=== PATIENT | male | born 1955 | race American Indian/Alaskan Native ===

== ENCOUNTER 2021-07-12 20:15 | Inpatient (IN) | payer OTHER, SELFPAY ==
--- NOTE | 2021-07-12 20:27 | Event Note ---
Date: 07/12/21 The patient was evaluated in the emergency department for symptoms described in the history of present illness. He/she was evaluated in the context of the global COVID-19 pandemic, which necessitated consideration that the patient might be at risk for infection with the virus that causes COVID-19. Institutional protocols and algorithms that pertain to the evaluation of patients at risk for COVID-19 are in a state of rapid change based on information released by regulatory bodies including the CDC and federal and state organizations. These policies and algorithms were followed during the patient's care in the emergency department. Please note that these policies, procedures and recommendations changed on a rapid basis. EMS documentation not available at time of chart dictation Verbal report received from emergency medical services. Medical screening examination: 66-year-old gentleman brought to the hospital by EMS with a complaint of generalized weakness. Patient altered and asking for coffee. Last known well time is not explicitly known. History obtained from EMS. EMS states that patient is not compliant with traditional medical therapy, including regular medications, and has not received COVID-19 vaccination. They received a call for generalized weakness. They state the patient has a high Accu-Chek, and is breathing rapidly "probably kussmal breathing." They report the patient not ambulatory in the field, with rapid breathing, requiring a lift. They report high blood sugar. On exam, the patient is breathing rapidly, is awake to name, and moves 4 extremities. Denies physical pain. This is likely toxic metabolic encephalopathy, likely secondary to DKA. Obtain appropriate laboratory studies, noncontrast CT scan of the brain, x-ray the chest, Accu-Chek, EKG, anticipate admission to the medical service.
[2021-07-12 21:02] LABS: Mean Corpuscular HGB Conc 31 % (32-34); Mean Corpuscular Volume 96 fl (84-94); Platelet Count 234 K/mm3 (140-440); Red Cell Distribution Width 15.3 % (13.2-15.2)
--- NOTE | 2021-07-12 21:08 | Emergency Department Report ---
ED General Adult HPI - General Chief complaint: Altered Mental Status Stated complaint: DKA Time Seen by Provider: 07/12/21 21:07 Source: patient, EMS (Verbal report received from emergency medical services. EMS documentation not available at time of chart dictation ) Mode of arrival: Stretcher Limitations: Altered Mental Status, Physical Limitation - History of Present Illness Initial comments: The patient was evaluated in the emergency department for symptoms described in the history of present illness. He/she was evaluated in the context of the global COVID-19 pandemic, which necessitated consideration that the patient might be at risk for infection with the virus that causes COVID-19. Institutional protocols and algorithms that pertain to the evaluation of patients at risk for COVID-19 are in a state of rapid change based on information released by regulatory bodies including the CDC and federal and state organizations. These policies and algorithms were followed during the patient's care in the emergency department. Please note that these policies, procedures and recommendations changed on a rapid basis. This patient is a 66-year-old gentleman. He is not known to myself previously. He is brought to the hospital by emergency medical services with an EMS stated complaint of high blood sugar and generalized weakness. The patient is altered. He denies physical pain. He is asking for something to drink. He is not accompanied by friends or family for collateral information. History mostly obtained by EMS. EMS reported to myself that this patient does not take medications, including medications for diabetes, and they responded to a complaint of generalized weakness and high blood sugar. They reported that the patient had a high blood sugar in the field, and was basically laying down without signs of trauma or history of trauma at home. In the emergency room, the patient will move 4 extremities and denies physical pain. He is breathing rapidly. He also has dry mucous membranes. He is found to have evidence of dehydration, hyperglycemia, metabolic acidosis, all consistent with diabetic ketoacidosis, likely secondary to medication noncompliance. -: unknown - Related Data Allergies Allergy/AdvReac Type Severity Reaction Status Date / Time Unable to Assess Allergy Verified 07/12/21 22:40 ED Review of Systems ROS: Stated complaint: DKA Other details as noted in HPI Comment: Unobtainable due to pts medical conditions ED Physical Exam - General Limitations: Altered Mental Status General appearance: lethargic - Head Head exam: Present: atraumatic, normocephalic - Eye Eye exam: Present: normal appearance, EOMI - ENT ENT exam: Present: mucous membranes dry - Neck Neck exam: Present: normal inspection, full ROM. Absent: tenderness, meningismus - Respiratory Respiratory exam: Present: respiratory distress, accessory muscle use. Absent: wheezes, rales, rhonchi, stridor - Cardiovascular Cardiovascular Exam: Present: regular rate, normal rhythm, normal heart sounds. Absent: bradycardia, tachycardia, irregular rhythm, systolic murmur, diastolic murmur, rubs, gallop - GI/Abdominal GI/Abdominal exam: Present: soft. Absent: distended, tenderness, guarding, rebound, rigid, pulsatile mass - Rectal Rectal exam: Present: deferred - Extremities Exam Extremities exam: Present: normal inspection, other (2+ pulses noted in the bilateral upper and lower extremities. There is no palpable cord. negative Homans sign. Muscular compartments are soft. The pelvis is stable.). Absent: tenderness, pedal edema, calf tenderness - Back Exam Back exam: Present: normal inspection. Absent: tenderness, CVA tenderness (R), CVA tenderness (L), paraspinal tenderness, vertebral tenderness - Neurological Exam Neurological exam: Present: altered, other (There is no facial droop. The tongue is midline. EOMI. 4-5 strength in 4 extremities. Sensation is intact to light touch in 4 extremities) - Psychiatric Psychiatric exam: Present: flat affect - Skin Skin exam: Present: warm, dry, intact, normal color. Absent: rash ED Course - Reevaluation(s) Reevaluation #1: 07/12/21 21:31 Differential diagnosis, including but not limited to: Acute encephalopathy, diabetic ketoacidosis, dehydration, metabolic encephalopathy, pneumonia, urinary tract infection, noncompliance Assessment and plan: 66-year-old gentleman with venous pH of 7.1, hyperglycemia, CO2 of 7, metabolic acidosis, all pointing to diabetic ketoacidosis with metabolic encephalopathy, likely secondary to the aforementioned. Place patient on court monitor, start vigorous IV fluid resuscitation, insulin bolus, insulin drip, x-ray the chest is clear, obtain noncontrast CT scan of the brain, urinalysis, admit patient to the critical care unit. Contacted critical care physician on-call, Dr. Ferguson, have discussed the patient's history, physical, laboratory studies and plan of care. Dr. Ferguson is in agreement with the plan of care, and will follow along consultatively. Noncontrast CT scan of the brain is pending at this time, presuming no significant findings, admit patient to the critical care/medical service for the aforementioned. At the moment, the patient is protecting airway. 07/12/21 21:47 Dr Smith to admit to IMS/ ICU ct head shows no bleed 07/12/21 22:20 Patient found to be hypoxic, requiring nonrebreather. Decadron ordered, isolation precautions ordered, Covid laboratory studies ordered. Nursing team reports that blood pressure is in the 90s systolic. 4 L fluid ordered total. Noncontrast CT scan of the brain interpretation reviewed and appreciated. Defer to inpatient team to further evaluate. 07/12/21 23:00 Patient pulling off nonrebreather. He is altered and does not have decision-making capacity. Given hypoxia, toxic metabolic encephalopathy, chemical sedation not advised at this time. Soft restraints ordered. 07/13/21 00:13 Hypothermia likely environmental. TSH within normal limits. Blood pressure improved. Active patient rewarming ordered. ED Medical Decision Making - Lab Data Result diagrams: 07/12/21 20:38 07/12/21 23:14 Lab Results 07/12/21 07/12/21 07/12/21 Range/Units 20:38 20:38 20:38 WBC 11.1 H (4.5-11.0) K/mm3 RBC 4.90 (3.65-5.03) M/mm3 Hgb 14.3 (11.8-15.2) gm/dl Hct 46.8 H (35.5-45.6) % MCV 96 H (84-94) fl MCH 29 (28-32) pg MCHC 31 L (32-34) % RDW 15.3 H (13.2-15.2) % Plt Count 234 (140-440) K/mm3 Seg Neutrophils % Shoe Ironer PT 16.5 H (12.2-14.9) Sec. INR 1.28 H (0.87-1.13) VBG pH (7.320-7.420) Sodium 146 H (137-145) mmol/L Potassium 5.2 H (3.6-5.0) mmol/L Chloride 104.9 (98-107) mmol/L BUN 50 H (9-20) mg/dL Creatinine 1.5 H (0.8-1.3) mg/dL Estimated GFR 47 ml/min BUN/Creatinine Ratio 33 % Lactic Acid (0.7-2.0) mmol/L Calcium 9.4 (8.4-10.2) mg/dL Magnesium 3.20 H (1.7-2.3) mg/dL Total Bilirubin 0.30 (0.1-1.2) mg/dL AST 22 (5-40) units/L ALT 13 (7-56) units/L Alkaline Phosphatase 109 (35-129) units/L Total Creatine Kinase 372 H (55-170) units/L Troponin T < 0.010 (0.00-0.029) ng/mL Total Protein 7.0 (6.3-8.2) g/dL Albumin 3.2 L (3.9-5) g/dL Albumin/Globulin Ratio 0.8 % Acetaminophen (10.0-30.0) ug/mL 07/12/21 07/12/21 07/12/21 Range/Units 20:38 20:38 20:38 WBC (4.5-11.0) K/mm3 RBC (3.65-5.03) M/mm3 Hgb (11.8-15.2) gm/dl Hct (35.5-45.6) % MCV (84-94) fl MCH (28-32) pg MCHC (32-34) % RDW (13.2-15.2) % Plt Count (140-440) K/mm3 Seg Neutrophils % PT (12.2-14.9) Sec. INR (0.87-1.13) VBG pH 7.170 L* (7.320-7.420) Sodium (137-145) mmol/L Potassium (3.6-5.0) mmol/L Chloride (98-107) mmol/L BUN (9-20) mg/dL Creatinine (0.8-1.3) mg/dL Estimated GFR ml/min BUN/Creatinine Ratio % Lactic Acid 1.90 (0.7-2.0) mmol/L Calcium (8.4-10.2) mg/dL Magnesium (1.7-2.3) mg/dL Total Bilirubin (0.1-1.2) mg/dL AST (5-40) units/L ALT (7-56) units/L Alkaline Phosphatase (35-129) units/L Total Creatine Kinase (55-170) units/L Troponin T (0.00-0.029) ng/mL Total Protein (6.3-8.2) g/dL Albumin (3.9-5) g/dL Albumin/Globulin Ratio % Acetaminophen 5.0 L (10.0-30.0) ug/mL Lab Results 07/12/21 07/12/21 07/12/21 Range/Units 20:38 20:38 20:38 WBC 11.1 H (4.5-11.0) K/mm3 RBC 4.90 (3.65-5.03) M/mm3 Hgb 14.3 (11.8-15.2) gm/dl Hct 46.8 H (35.5-45.6) % MCV 96 H (84-94) fl MCH 29 (28-32) pg MCHC 31 L (32-34) % RDW 15.3 H (13.2-15.2) % Plt Count 234 (140-440) K/mm3 Seg Neutrophils % Shoe Ironer PT 16.5 H (12.2-14.9) Sec. INR 1.28 H (0.87-1.13) VBG pH (7.320-7.420) Sodium 146 H (137-145) mmol/L Potassium 5.2 H (3.6-5.0) mmol/L Chloride 104.9 (98-107) mmol/L Carbon Dioxide 7 L* (22-30) mmol/L Anion Gap 39 mmol/L BUN 50 H (9-20) mg/dL Creatinine 1.5 H (0.8-1.3) mg/dL Estimated GFR 47 ml/min BUN/Creatinine Ratio 33 % Glucose 617 H* (75-100) mg/dL Lactic Acid (0.7-2.0) mmol/L Calcium 9.4 (8.4-10.2) mg/dL Magnesium 3.20 H (1.7-2.3) mg/dL Total Bilirubin 0.30 (0.1-1.2) mg/dL AST 22 (5-40) units/L ALT 13 (7-56) units/L Alkaline Phosphatase 109 (35-129) units/L Total Creatine Kinase 372 H (55-170) units/L Troponin T < 0.010 (0.00-0.029) ng/mL Total Protein 7.0 (6.3-8.2) g/dL Albumin 3.2 L (3.9-5) g/dL Albumin/Globulin Ratio 0.8 % TSH (0.270-4.200) mlU/mL Salicylates (2.8-20.0) mg/dL Acetaminophen (10.0-30.0) ug/mL Plasma/Serum Alcohol (0-0.07) % Blood Type 07/12/21 07/12/21 07/12/21 Range/Units 20:38 20:38 20:38 WBC (4.5-11.0) K/mm3 RBC (3.65-5.03) M/mm3 Hgb (11.8-15.2) gm/dl Hct (35.5-45.6) % MCV (84-94) fl MCH (28-32) pg MCHC (32-34) % RDW (13.2-15.2) % Plt Count (140-440) K/mm3 Seg Neutrophils % PT (12.2-14.9) Sec. INR (0.87-1.13) VBG pH (7.320-7.420) Sodium (137-145) mmol/L Potassium (3.6-5.0) mmol/L Chloride (98-107) mmol/L Carbon Dioxide (22-30) mmol/L Anion Gap mmol/L BUN (9-20) mg/dL Creatinine (0.8-1.3) mg/dL Estimated GFR ml/min BUN/Creatinine Ratio % Glucose (75-100) mg/dL Lactic Acid 1.90 (0.7-2.0) mmol/L Calcium (8.4-10.2) mg/dL Magnesium (1.7-2.3) mg/dL Total Bilirubin (0.1-1.2) mg/dL AST (5-40) units/L ALT (7-56) units/L Alkaline Phosphatase (35-129) units/L Total Creatine Kinase (55-170) units/L Troponin T (0.00-0.029) ng/mL Total Protein (6.3-8.2) g/dL Albumin (3.9-5) g/dL Albumin/Globulin Ratio % TSH 0.819 (0.270-4.200) mlU/mL Salicylates < 0.3 L (2.8-20.0) mg/dL Acetaminophen (10.0-30.0) ug/mL Plasma/Serum Alcohol (0-0.07) % Blood Type 07/12/21 07/12/21 07/12/21 Range/Units 20:38 20:38 20:38 WBC (4.5-11.0) K/mm3 RBC (3.65-5.03) M/mm3 Hgb (11.8-15.2) gm/dl Hct (35.5-45.6) % MCV (84-94) fl MCH (28-32) pg MCHC (32-34) % RDW (13.2-15.2) % Plt Count (140-440) K/mm3 Seg Neutrophils % PT (12.2-14.9) Sec. INR (0.87-1.13) VBG pH 7.170 L* (7.320-7.420) Sodium (137-145) mmol/L Potassium (3.6-5.0) mmol/L Chloride (98-107) mmol/L Carbon Dioxide (22-30) mmol/L Anion Gap mmol/L BUN (9-20) mg/dL Creatinine (0.8-1.3) mg/dL Estimated GFR ml/min BUN/Creatinine Ratio % Glucose (75-100) mg/dL Lactic Acid (0.7-2.0) mmol/L Calcium (8.4-10.2) mg/dL Magnesium (1.7-2.3) mg/dL Total Bilirubin (0.1-1.2) mg/dL AST (5-40) units/L ALT (7-56) units/L Alkaline Phosphatase (35-129) units/L Total Creatine Kinase (55-170) units/L Troponin T (0.00-0.029) ng/mL Total Protein (6.3-8.2) g/dL Albumin (3.9-5) g/dL Albumin/Globulin Ratio % TSH (0.270-4.200) mlU/mL Salicylates (2.8-20.0) mg/dL Acetaminophen 5.0 L (10.0-30.0) ug/mL Plasma/Serum Alcohol < 0.01 (0-0.07) % Blood Type 07/12/21 Range/Units 20:38 WBC (4.5-11.0) K/mm3 RBC (3.65-5.03) M/mm3 Hgb (11.8-15.2) gm/dl Hct (35.5-45.6) % MCV (84-94) fl MCH (28-32) pg MCHC (32-34) % RDW (13.2-15.2) % Plt Count (140-440) K/mm3 Seg Neutrophils % PT (12.2-14.9) Sec. INR (0.87-1.13) VBG pH (7.320-7.420) Sodium (137-145) mmol/L Potassium (3.6-5.0) mmol/L Chloride (98-107) mmol/L Carbon Dioxide (22-30) mmol/L Anion Gap mmol/L BUN (9-20) mg/dL Creatinine (0.8-1.3) mg/dL Estimated GFR ml/min BUN/Creatinine Ratio % Glucose (75-100) mg/dL Lactic Acid (0.7-2.0) mmol/L Calcium (8.4-10.2) mg/dL Magnesium (1.7-2.3) mg/dL Total Bilirubin (0.1-1.2) mg/dL AST (5-40) units/L ALT (7-56) units/L Alkaline Phosphatase (35-129) units/L Total Creatine Kinase (55-170) units/L Troponin T (0.00-0.029) ng/mL Total Protein (6.3-8.2) g/dL Albumin (3.9-5) g/dL Albumin/Globulin Ratio % TSH (0.270-4.200) mlU/mL Salicylates (2.8-20.0) mg/dL Acetaminophen (10.0-30.0) ug/mL Plasma/Serum Alcohol (0-0.07) % Blood Type A POSITIVE - EKG Data -: EKG Interpreted by Fl EKG shows normal: sinus rhythm Rate: normal - EKG Data When compared to previous EKG there are: previous EKG unavailable 07/12/21 21:26 EKG interpreted at 20: 59 Sinus rhythm, 90 bpm. Normal P wave axis. Left axis deviation. Left anterior fascicular block. QTC prolonged, 477 ms. Left ventricular hypertrophy. Abnormal EKG. Not a STEMI. - Radiology Data Radiology results: pending, report reviewed, image reviewed [address] [address] XRay Report Signed Patient: GAGE COHEN MR#: [id number] : 1955 Acct:[id number] Age/Sex: 66 / M ADM Date: 07/12/21 Loc: ED Attending Dr: Ordering Physician: BABATUNDE PEREZ MD Date of Service: 07/12/21 Procedure(s): XR chest 1V ap Accession Number(s): [id number] cc: BABATUNDE PEREZ MD Fluoro Time In Minutes: CHEST 1 VIEW 07/12/2021 8:40 PM INDICATION / CLINICAL INFORMATION: Altered Mental Status. COMPARISON: None available. FINDINGS: SUPPORT DEVICES: None. HEART / MEDIASTINUM: No significant abnormality. LUNGS / PLEURA: No significant pulmonary or pleural abnormality. No pneumothorax. ADDITIONAL FINDINGS: No significant additional findings. IMPRESSION: 1. No acute findings. Signer Name: Thuan Ruano MD Signed: 07/12/2021 9:14 PM Workstation Name: [id number] Transcribed By: DB Dictated By: THUAN RUANO MD Electronically Authenticated By: THUAN RUANO MD Signed Date/Time: 07/12/212113 DD/ [address] [address] Cat Scan Report Signed Patient: GAGE COHEN MR#: [id number] : 1955 Acct:[id number] Age/Sex: 66 / M ADM Date: 07/12/21 Loc: ED Attending Dr: Ordering Physician: BABATUNDE PEREZ MD Date of Service: 07/12/21 Procedure(s): CT head/brain wo con Accession Number(s): [id number] cc: BABATUNDE PEREZ MD CT HEAD WITHOUT CONTRAST INDICATION / CLINICAL INFORMATION: Altered Mental Status. TECHNIQUE: All CT scans at this location are performed using CT dose reduction for ALARA by means of automated exposure control. COMPARISON: None available. FINDINGS: There is no acute intracranial hemorrhage, mass effect, or hydrocephalus. There is a focal hypodense area in the right occipital lobe above the tentorium (series 400 image 53) and in the high left frontal lobe as seen on series 2 image 24. The paranasal sinuses and mastoid air cells are clear. The orbits are unremarkable. Calvarium is intact. IMPRESSION: 1. No acute intracranial abnormality. 2. Focal hypodense areas in the left frontal lobe and right occipital lobe are nonspecific. Recommend further evaluation with MRI. Signer Name: Thuan Ruano MD Signed: 07/12/2021 10:10 PM Workstation Name: [id number] Transcribed By: DB Dictated By: THUAN RUANO MD Electronically Authenticated By: THUAN RUANO MD Signed Date/Time: 07/12/21 2210 Critical Care Time: Yes Critical care time in (mins) excluding proc time.: 35 Critical care attestation.: If time is entered above; I have spent that time in minutes in the direct care of this critically ill patient, excluding procedure time. ED Disposition Clinical Impression: DKA (diabetic ketoacidosis), Dehydration, Acute encephalopathy, Renal insufficiency, Hypothermia Disposition: ADMITTED INPATIENT Is pt being admited?: Yes Does the pt Need Aspirin: No Condition: Critical
[2021-07-12 21:09] LABS: Hematocrit 46.8 % (35.5-45.6); Hemoglobin 14.3 gm/dl (11.8-15.2)
[2021-07-12 21:15] LABS: INR 1.28 (0.87-1.13)
--- NOTE | 2021-07-12 21:19 | XRay Report ---
CHEST 1 VIEW 07/12/2021 8:40 PM INDICATION / CLINICAL INFORMATION: Altered Mental Status. COMPARISON: None available. FINDINGS: SUPPORT DEVICES: None. HEART / MEDIASTINUM: No significant abnormality. LUNGS / PLEURA: No significant pulmonary or pleural abnormality. No pneumothorax. ADDITIONAL FINDINGS: No significant additional findings. IMPRESSION: 1. No acute findings. Signer Name: Socrates Ruano MD Signed: 07/12/2021 9:14 PM Workstation Name: [id number]
[2021-07-12 21:20] LABS: Alanine Aminotransferase 13 units/L (7-56); Albumin 3.2 g/dL (3.9-5); BUN/Creatinine Ratio 33; Blood Urea Nitrogen 50 mg/dL (9-20); Calcium 9.4 mg/dL (8.4-10.2); Hemolysis Index 8
[2021-07-12] MEDS ORDERED: DEXTROSE 50% IN WATER (25GM) 50 ML SYRINGE IV PRN ×2 (21:25→22:08)
[2021-07-12] MEDS ORDERED: INSULIN REGULAR, HUMAN 100 UNITS in SODIUM CHLORIDE 0.9% 99 ML IV SCH (22:00)
[2021-07-12] MEDS ORDERED: ACETAMINOPHEN 325 MG TAB PO PRN (22:08)
[2021-07-12] MEDS ORDERED: HYDROmorphone 1 MG/1 ML INJ IV PRN (22:08)
[2021-07-12] MEDS ORDERED: oxyCODONE /ACETAMINOPHEN 5-325MG TAB PO PRN (22:08)
[2021-07-12] MEDS ORDERED: ALBUTEROL 2.5 MG/3 ML NEBU IH PRN (22:08)
[2021-07-12] MEDS ORDERED: ONDANSETRON 4 MG/2 ML INJ IV PRN (22:08)
--- NOTE | 2021-07-12 22:14 | Cat Scan Report ---
CT HEAD WITHOUT CONTRAST INDICATION / CLINICAL INFORMATION: Altered Mental Status. TECHNIQUE: All CT scans at this location are performed using CT dose reduction for ALARA by means of automated exposure control. COMPARISON: None available. FINDINGS: There is no acute intracranial hemorrhage, mass effect, or hydrocephalus. There is a focal hypodense area in the right occipital lobe above the tentorium (series 400 image 53) and in the high left frontal lobe as seen on series 2 image 24. The paranasal sinuses and mastoid air cells are clear. The orbits are unremarkable. Calvarium is inta ct. IMPRESSION: 1. No acute intracranial abnormality. 2. Focal hypodense areas in the left frontal lobe and right occipital lobe are nonspecific. Recommend further evaluation with MRI. Signer Name: Socrates Ruano MD Signed: 07/12/2021 10:10 PM Workstation Name: [id number]
[2021-07-12 22:16] LABS: Calcium 8.8 mg/dL (8.4-10.2)
[2021-07-12] MEDS ORDERED: LACTATED RINGERS 1,000 ML IV ONE ×2 (22:18→22:20)
--- NOTE | 2021-07-12 22:35 | History and Physical Report ---
History of Present Illness Date of examination: 07/12/21 Date of admission: 07/12/21 22:08 Chief complaint: Altered mental status Hyperglycemia History of present illness: 66-year-old with past medical history of diabetes was brought to the emergency room because of high blood sugar and generalized weakness. The patient is altered. He is asking for something to drink. He is not accompanied by friends or family for collateral information. History mostly obtained by EMS. EMS reported to myself that this patient does not take medications, including medications for diabetes, and they responded to a complaint of generalized weakness and high blood sugar. They reported that the patient had a high blood sugar in the field, and was basically laying down without signs of trauma or history of trauma at home. In the emergency room patient is found to have DKA. Patient blood glucose is 617 and bicarb is 7. Initial CT scan of the head shows no acute intracranial abnormality.2. Focal hypodense areas in the left frontal lobe and right occipital lobe are nonspecific recommend further evaluation with MRI. patient also PUI as per the emergency room physician. Past History Past Medical History: diabetes Medications and Allergies Allergies Allergy/AdvReac Type Severity Reaction Status Date / Time Unable to Assess Allergy Verified 07/12/21 22:40 Active Meds: Active Medications Acetaminophen (Acetaminophen 325 Mg Tab) 650 mg PO Q4H PRN PRN Reason: Pain MILD(1-3)/Fever >100.5/YOUNGBLOOD Albuterol (Albuterol 2.5 Mg/3 Ml Nebu) 2.5 mg IH Q4HRT PRN PRN Reason: Shortness Of Breath Albuterol/Ipratropium (Ipratropium/Albuterol Sulfate 3 Ml Ampul.Neb) 1 ampul IH Q6HRT JESUS Dexamethasone (Dexamethasone 4 Mg/Ml Vial) 6 mg IV ONCE ONE Stop: 07/12/21 22:19 Dexamethasone (Dexamethasone 4 Mg/Ml Vial) 6 mg IV DAILY JESUS Dextrose (Dextrose 50% In Water (25gm) 50 Ml Syringe) 0 ml IV Q30MIN PRN; Protocol PRN Reason: Hypoglycemia Dextrose (Dextrose 50% In Water (25gm) 50 Ml Syringe) 0 ml IV Q30MIN PRN; Protocol PRN Reason: Hypoglycemia Famotidine (Famotidine 20 Mg/2 Ml Inj) 20 mg IV BID JESUS Heparin Sodium (Porcine) (Heparin 5,000 Unit/1 Ml Vial) 5,000 unit SUB-Q Q8HR JESUS Hydromorphone HCl (Hydromorphone 1 Mg/1 Ml Inj) 0.5 mg IV Q3H PRN PRN Reason: Pain , Severe (7-10) Insulin Human Regular 100 (units/ Sodium Chloride) 100 mls @ 1 mls/hr IV TITR JESUS; Protocol Potassium Chloride/Dextrose/Sod Cl (D5w/0.45% Nacl/Kcl 20 Meq) 20 meq in 1,000 mls @ 125 mls/hr IV DIRECT JESUS Lactated Ringer's (Lactated Ringers) 2,000 mls @ 999 mls/hr IV BOLUS ONE Stop: 07/12/21 23:25 Insulin Human Regular 100 (units/ Sodium Chloride) 100 mls @ 1 mls/hr IV TITR JESUS; Protocol Sodium Chloride (Nacl 0.45% 1000 Ml) 1,000 mls @ 150 mls/hr IV DIRECT JESUS Lactated Ringer's (Lactated Ringers) 1,000 mls @ 999 mls/hr IV BOLUS ONE Stop: 07/12/21 23:18 Lactated Ringer's (Lactated Ringers) 1,000 mls @ 999 mls/hr IV BOLUS ONE Stop: 07/12/21 23:20 Ceftriaxone Sodium (Rocephin/Ns 2 Gm/100 Ml) 2 gm in 100 mls @ 200 mls/hr IV Q24H JESUS; Protocol Azithromycin (Zithromax/Ns) 500 mg in 250 mls @ 250 mls/hr IV Q24H JESUS; Protocol Insulin Human Regular (Insulin Regular, Human 100 Units/1 Ml) 8 units IV ONCE ONE Stop: 07/12/21 21:26 Ondansetron HCl (Ondansetron 4 Mg/2 Ml Inj) 4 mg IV Q8H PRN PRN Reason: Nausea And Vomiting Oxycodone/Acetaminophen (Oxycodone /Acetaminophen 5-325mg Tab) 1 tab PO Q6H PRN PRN Reason: Pain, Moderate (4-6) Sodium Chloride (Sodium Chloride 0.9% 10 Ml Flush Syringe) 10 ml IV BID JESUS Sodium Chloride (Sodium Chloride 0.9% 10 Ml Flush Syringe) 10 ml IV PRN PRN PRN Reason: LINE FLUSH Review of Systems All systems: negative Constitutional: fatigue, weakness, lethargy, poor appetite Neurological: change in mentation Exam - Constitutional General appearance: Present: mild distress, well-nourished - EENT Eyes: Present: PERRL ENT: hearing intact, clear oral mucosa - Neck Neck: Present: supple, normal ROM - Respiratory Respiratory effort: normal Respiratory: bilateral: diminished - Cardiovascular Heart Sounds: Present: S1 & S2. Absent: rub, click - Extremities Extremities: pulses symmetrical, No edema Peripheral Pulses: within normal limits - Abdominal General gastrointestinal: Present: soft, non-tender, non-distended, normal bowel sounds Male genitourinary: Present: normal - Integumentary Integumentary: Present: clear, warm, dry - Musculoskeletal Musculoskeletal: gait normal, strength equal bilaterally - Psychiatric Psychiatric: other (Patient is lethargic) - Neurologic Neurologic: CNII-XII intact, moves all extremities, other (Patient is lethargic) HEART Score - HEART Score Troponin: Troponin T < 0.010 ng/mL (0.00-0.029) 07/12/21 20:38 Results - Labs CBC & Chem 7: 07/12/21 20:38 07/12/21 21:31 Labs: Laboratory Last Values WBC 11.1 K/mm3 (4.5-11.0) H 07/12/21 20:38 RBC 4.90 M/mm3 (3.65-5.03) 07/12/21 20:38 Hgb 14.3 gm/dl (11.8-15.2) 07/12/21 20:38 Hct 46.8 % (35.5-45.6) H 07/12/21 20:38 MCV 96 fl (84-94) H 07/12/21 20:38 MCH 29 pg (28-32) 07/12/21 20:38 MCHC 31 % (32-34) L 07/12/21 20:38 RDW 15.3 % (13.2-15.2) H 07/12/21 20:38 Plt Count 234 K/mm3 (140-440) 07/12/21 20:38 Seg Neutrophils % Timber Setter 07/12/21 20:38 PT 16.5 Sec. (12.2-14.9) H 07/12/21 20:38 INR 1.28 (0.87-1.13) H 07/12/21 20:38 VBG pH 7.170 (7.320-7.420) L* 07/12/21 20:38 Sodium 148 mmol/L (137-145) H 07/12/21 21:31 Potassium 5.1 mmol/L (3.6-5.0) H 07/12/21 21:31 Chloride 105.2 mmol/L (98-107) 07/12/21 21:31 Carbon Dioxide 6 mmol/L (22-30) L* 07/12/21 21:31 Anion Gap 42 mmol/L 07/12/21 21:31 BUN 53 mg/dL (9-20) H 07/12/21 21:31 Creatinine 1.6 mg/dL (0.8-1.3) H 07/12/21 21:31 Estimated GFR 53 ml/min 07/12/21 21:31 BUN/Creatinine Ratio 33 % 07/12/21 21:31 Glucose 610 mg/dL (75-100) H* 07/12/21 21:31 Ketones Quantitative Moderate (Negative) 07/12/21 20:38 Lactic Acid 1.90 mmol/L (0.7-2.0) 07/12/21 20:38 Calcium 8.8 mg/dL (8.4-10.2) 07/12/21 21:31 Phosphorus 5.70 mg/dL (2.5-4.5) H 07/12/21 21:31 Magnesium 3.10 mg/dL (1.7-2.3) H 07/12/21 21:31 Total Bilirubin 0.30 mg/dL (0.1-1.2) 07/12/21 20:38 AST 22 units/L (5-40) 07/12/21 20:38 ALT 13 units/L (7-56) 07/12/21 20:38 Alkaline Phosphatase 109 units/L (35-129) 07/12/21 20:38 Ammonia 45.0 umol/L (25-60) 07/12/21 20:38 Total Creatine Kinase 372 units/L (55-170) H 07/12/21 20:38 Troponin T < 0.010 ng/mL (0.00-0.029) 07/12/21 20:38 Total Protein 7.0 g/dL (6.3-8.2) 07/12/21 20:38 Albumin 3.2 g/dL (3.9-5) L 07/12/21 20:38 Albumin/Globulin Ratio 0.8 % 07/12/21 20:38 TSH 0.819 mlU/mL (0.270-4.200) 07/12/21 20:38 Salicylates < 0.3 mg/dL (2.8-20.0) L 07/12/21 20:38 Acetaminophen 5.0 ug/mL (10.0-30.0) L 07/12/21 20:38 Plasma/Serum Alcohol < 0.01 % (0-0.07) 07/12/21 20:38 Blood Type A POSITIVE 07/12/21 20:38 Antibody Screen Negative 07/12/21 20:38 - Imaging and Cardiology Chest x-ray: report reviewed CT Scan - head: report reviewed Assessment and Plan VTE prophylaxis?: Chemical Plan of care discussed with patient/family: Yes - Patient Problems (1) DKA (diabetic ketoacidosis) Current Visit: Yes Status: Acute Plan to address problem: Admit the patient to the ICU put the patient on DKA pathway. N.p.o. IV fluid half-normal saline at the rate of 150 cc/h. Insulin drip as per protocol. We do the serial BMP. We also consult critical care evaluation and diabetic education recheck CBC BMP in the morning (2) Acute encephalopathy Current Visit: Yes Status: Acute Plan to address problem: Acute encephalopathy due to diabetic ketoacidosis and dehydration and renal insufficiency. Patient also has abnormal CT scan of the head. We will put the patient on IV fluid half-normal saline at the rate of 150 cc/h .insulin drip as per protocol. We will monitor the patient closely. Consult neurology. (3) Person under investigation for COVID-19 Current Visit: Yes Status: Acute Plan to address problem: Put the patient on oxygen by nasal cannula 3 L/min.. Rocephin 2 g IV daily and Zithromax 500 mg IV daily. Dexamethasone 6 mg IV daily. Will consult infectiou s disease evaluation. Follow the Covid PCR and Covid inflammatory marker (4) Dehydration Current Visit: Yes Status: Acute Plan to address problem: Half-normal saline at the rate of 150 cc/h. We will monitor the patient closely. We recheck the BMP in the morning (5) Renal insufficiency Current Visit: Yes Status: Acute Plan to address problem: Avoid nephrotoxic drug. Half-normal saline at the rate of 150 cc/h. Renally dose medication. Will consult nephrology in the morning if needed. . Recheck BMP in the morning (6) Abnormal CT scan, head Current Visit: Yes Status: Acute Plan to address problem: We order MRI of the brain without contrast. Consult neurology . (7) DVT prophylaxis Current Visit: Yes Status: Acute Plan to address problem: SCD for DVT prophylaxis. Pepcid 20 mg IV every 12 hours for GI prophylaxis. Patient is a full code
[2021-07-12 22:48] LABS: RBC Morphology Normal; Total Cells Counted 100
[2021-07-12] MEDS ORDERED: cefTRIAXone/NS 2 GM/100 ML 2 GM/100 ML BAG IV SCH (23:00)
[2021-07-12] MEDS ORDERED: SODIUM CHLORIDE 0.45% 1000 ML 1,000 ML IV SCH (23:00)
[2021-07-12] MEDS ORDERED: LACTATED RINGERS 1,000 ML IV SCH (23:00)
[2021-07-12] MEDS ORDERED: dexAMETHasone 4 MG/ML VIAL IV ONE (23:18)
[2021-07-12] MEDS ORDERED: INSULIN REGULAR, HUMAN 100 UNITS/1 ML IV ONE (23:25)
[2021-07-12] MEDS: INSULIN REGULAR, HUMAN 100 UNITS in SODIUM CHLORIDE 0.9% 99 ML IV SCH (23:44)
[2021-07-12 23:45] LABS: Calcium 8.7 mg/dL (8.4-10.2)
[2021-07-13] MEDS: cefTRIAXone/NS 2 GM/100 ML 2 GM/100 ML BAG IV SCH ×2 (00:02→13:08)
[2021-07-13] MEDS: AZITHROMYCIN/NS 500 MG/250 ML 500 MG/250 ML BAG IV SCH ×2 (01:10→16:09)
[2021-07-13 01:50] LABS: Bilirubin,Urine NEG (Negative); Blood,Urine MOD (Negative); Color,Urine Straw (Yellow); Hyaline Casts,Urine 1 /LPF; Mucus,Urine FEW /HPF; Urobilinogen,Urine < 2.0 mg/dL (<2.0); WBC,Urine < 1.0 /HPF (0.0-6.0)
[2021-07-13 01:58] LABS: Amphetamine Screen,Urine PRESUMPTIVE NEGATIVE; Benzodiazepines Screen,Urine PRESUMPTIVE NEGATIVE; Cannabinoid Screen,Urine PRESUMPTIVE NEGATIVE; Cocaine Screen,Urine PRESUMPTIVE NEGATIVE; Opiate Screen,Urine PRESUMPTIVE NEGATIVE
[2021-07-13 02:10] LABS: BUN/Creatinine Ratio 16; Blood Urea Nitrogen 13 mg/dL (9-20); Calcium 8.9 mg/dL (8.4-10.2); Hemolysis Index 7
[2021-07-13 02:16] LABS: Methadone Screen,Urine PRESUMPTIVE NEGATIVE
[2021-07-13 02:16] LABS: C-Reactive Protein 8.3 mg/dL (0.00-1.30)
[2021-07-13 02:16] LABS: C-Reactive Protein 8.1 mg/dL (0.00-1.30)
[2021-07-13] MEDS: D5W/0.45% NACL/KCL 20 MEQ 20 MEQ/1,000 ML BAG IV SCH ×2 (05:31→17:13)
[2021-07-13 05:48] LABS: Hematocrit 41.4 % (35.5-45.6); Hemoglobin 13.4 gm/dl (11.8-15.2); Mean Corpuscular HGB Conc 33 % (32-34); Mean Corpuscular Volume 90 fl (84-94); Platelet Count 196 K/mm3 (140-440); Red Blood Count 4.61 M/mm3 (3.65-5.03)
[2021-07-13] MEDS ORDERED: HEPARIN 5,000 UNIT/1 ML VIAL SUB-Q SCH (06:00)
[2021-07-13 06:04] LABS: BUN/Creatinine Ratio 38; Blood Urea Nitrogen 45 mg/dL (9-20); Hemolysis Index 2
[2021-07-13] MEDS ORDERED: LACTATED RINGERS 1,000 ML IV ONE (08:15)
[2021-07-13] MEDS ORDERED: cefTRIAXone/NS 2 GM/100 ML 2 GM/100 ML BAG IV SCH (10:00)
[2021-07-13 10:02] LABS: BUN/Creatinine Ratio 37; Blood Urea Nitrogen 41 mg/dL (9-20); Calcium 8.9 mg/dL (8.4-10.2); Hemolysis Index 1
--- NOTE | 2021-07-13 10:04 | Event Note ---
Date: 07/13/21 Consult placed for DKA, most likely persistent elevated anion gap is incorrect on last BMP. Ordered a stat repeat. If corrected then please down grade to medical floor, may even need to consider discharge to home given capacity of hospital and number of holds in the ED.
--- NOTE | 2021-07-13 10:21 | Electrocardiograph Report ---
[facility] Test Date: 2021-07-12 Test Time: 20:59:55 Pat Name: GAGE COHEN Department: Room: [place] [address] Gender: M [employer]: : 1955 Requested By: BABATUNDE PEREZ Order Number: [id number] Reading MD: José Miguel Mariscal Measurements Intervals [place] Rate: 90 P: 60 CT: 135 QRS: -8 QRSD: 97 T: 49 QT: 390 QTc: 477 Interpretive Statements Sinus rhythm No previous ECG available for comparison Electronically Signed On 07-13-2021 10:20:59 EDT by José Miguel Mariscal
--- NOTE | 2021-07-13 12:20 | Progress Note ---
Assessment and Plan (1) DKA (diabetic ketoacidosis) Current Visit: Yes Status: Acute Plan to address problem: Admit the patient to the ICU put the patient on DKA pathway. N.p.o. IV fluid half-normal saline at the rate of 150 cc/h. Insulin drip as per protocol. We do the serial BMP. We also consult critical care evaluation and diabetic education recheck CBC BMP in the morning (2) Acute encephalopathy Current Visit: Yes Status: Acute Plan to address problem: Acute encephalopathy due to diabetic ketoacidosis and dehydration and renal insufficiency. Patient also has abnormal CT scan of the head. We will put the patient on IV fluid half-normal saline at the rate of 150 cc/h .insulin drip as per protocol. We will monitor the patient closely. Consult neurology. (3) Person under investigation for COVID-19 Current Visit: Yes Status: Acute Plan to address problem: Put the patient on oxygen by nasal cannula 3 L/min.. Rocephin 2 g IV daily and Zithromax 500 mg IV daily. Dexamethasone 6 mg IV daily. Will consult infectious disease evaluation. Follow the Covid PCR and Covid inflammatory marker (4) Dehydration Current Visit: Yes Status: Acute Plan to address problem: Half-normal saline at the rate of 150 cc/h. We will monitor the patient closely. We recheck the BMP in the morning (5) Renal insufficiency Current Visit: Yes Status: Acute Plan to address problem: Avoid nephrotoxic drug. Half-normal saline at the rate of 150 cc/h. Renally dose medication. Will consult nephrology in the morning if needed. . Recheck BMP in the morning (6) Abnormal CT scan, head Current Visit: Yes Status: Acute Plan to address problem: We order MRI of the brain without contrast. Consult neurology . (7) DVT prophylaxis Current Visit: Yes Status: Acute Plan to address problem: SCD for DVT prophylaxis. Pepcid 20 mg IV every 12 hours for GI prophylaxis. Patient is a full code Objective - Exam Narrative Exam: - Constitutional General appearance: Present: mild distress, well-nourished - EENT Eyes: Present: PERRL ENT: hearing intact, clear oral mucosa - Neck Neck: Present: supple, normal ROM - Respiratory Respiratory effort: normal Respiratory: bilateral: diminished - Cardiovascular Heart Sounds: Present: S1 & S2. Absent: rub, click - Extremities Extremities: pulses symmetrical, No edema Peripheral Pulses: within normal limits - Abdominal General gastrointestinal: Present: soft, non-tender, non-distended, normal bowel sounds Male genitourinary: Present: normal - Integumentary Integumentary: Present: clear, warm, dry - Musculoskeletal Musculoskeletal: gait normal, strength equal bilaterally - Psychiatric Psychiatric: other (Patient is lethargic) - Neurologic Neurologic: CNII-XII intact, moves all extremities, other (Patient is lethargic) - Constitutional Vitals: Vital Signs - 12hr 07/13/21 07/13/21 07/13/21 00:30 01:00 01:16 Temperature Pulse Rate 89 94 H 92 H Respiratory 26 H 27 H 21 Rate Blood Pressure 142/52 122/42 114/67 O2 Sat by Pulse 97 91 92 Oximetry 07/13/21 07/13/21 07/13/21 01:30 02:00 02:16 Temperature Pulse Rate 86 90 88 Respiratory 24 29 H 25 H Rate Blood Pressure 116/58 116/68 118/98 O2 Sat by Pulse 94 91 94 Oximetry 07/13/21 07/13/21 07/13/21 02:30 02:46 03:00 Temperature Pulse Rate 89 89 90 Respiratory 29 H 25 H 21 Rate Blood Pressure 125/81 135/91 140/92 O2 Sat by Pulse 94 92 95 Oximetry 07/13/21 07/13/21 07/13/21 03:16 03:30 03:46 Temperature Pulse Rate 91 H 93 H 93 H Respiratory 22 20 20 Rate Blood Pressure 143/95 134/101 129/93 O2 Sat by Pulse 94 97 98 Oximetry 07/13/21 07/13/21 07/13/21 04:00 04:16 04:30 Temperature 94.2 F L Pulse Rate 97 H 96 H 95 H Respiratory 20 20 21 Rate Blood Pressure 136/95 148/93 128/94 O2 Sat by Pulse 99 97 97 Oximetry 07/13/21 07/13/21 07/13/21 04:46 05:00 05:16 Temperature Pulse Rate 97 H 98 H 98 H Respiratory 20 21 22 Rate Blood Pressure 127/92 127/91 127/90 O2 Sat by Pulse 98 97 97 Oximetry 07/13/21 07/13/21 07/13/21 05:30 05:46 06:00 Temperature 97.3 F L Pulse Rate 99 H 96 H 99 H Respiratory 16 20 16 Rate Blood Pressure 118/92 120/85 134/83 O2 Sat by Pulse 96 96 96 Oximetry 07/13/21 07/13/21 06:16 06:30 Temperature Pulse Rate 100 H 100 H Respiratory 22 19 Rate Blood Pressure 130/89 130/90 O2 Sat by Pulse 97 97 Oximetry - Labs CBC & Chem 7: 07/13/21 05:18 07/13/21 09:22 Labs: Abnormal lab results 07/12/21 07/12/21 07/12/21 Range/Units 20:38 20:38 20:38 WBC 11.1 H (4.5-11.0) K/mm3 Hct 46.8 H (35.5-45.6) % MCV 96 H (84-94) fl MCHC 31 L (32-34) % RDW 15.3 H (13.2-15.2) % Seg Neuts % (Manual) 91.0 H (40.0-70.0) % Lymphocytes % (Manual) 6.0 L (13.4-35.0) % Seg Neutrophils # Man 10.1 H (1.8-7.7) K/mm3 Lymphocytes # (Manual) 0.7 L (1.2-5.4) K/mm3 PT 16.5 H (12.2-14.9) Sec. INR 1.28 H (0.87-1.13) D-Dimer (0-234) ng/mlDDU VBG pH (7.320-7.420) Sodium 146 H (137-145) mmol/L Potassium 5.2 H (3.6-5.0) mmol/L Chloride (98-107) mmol/L Carbon Dioxide 7 L* (22-30) mmol/L BUN 50 H (9-20) mg/dL Creatinine 1.5 H (0.8-1.3) mg/dL Glucose 617 H* (75-100) mg/dL POC Glucose (70-105) mg/dL Phosphorus (2.5-4.5) mg/dL Magnesium 3.20 H (1.7-2.3) mg/dL Ferritin (30.0-300.0) ng/mL Lactate Dehydrogenase (91-180) units/L Total Creatine Kinase 372 H (55-170) units/L C-Reactive Protein (0.00-1.30) mg/dL Albumin 3.2 L (3.9-5) g/dL Salicylates (2.8-20.0) mg/dL Acetaminophen (10.0-30.0) ug/mL 07/12/21 07/12/21 07/12/21 Range/Units 20:38 20:38 20:38 WBC (4.5-11.0) K/mm3 Hct (35.5-45.6) % MCV (84-94) fl MCHC (32-34) % RDW (13.2-15.2) % Seg Neuts % (Manual) (40.0-70.0) % Lymphocytes % (Manual) (13.4-35.0) % Seg Neutrophils # Man (1.8-7.7) K/mm3 Lymphocytes # (Manual) (1.2-5.4) K/mm3 PT (12.2-14.9) Sec. INR (0.87-1.13) D-Dimer (0-234) ng/mlDDU VBG pH 7.170 L* (7.320-7.420) Sodium (137-145) mmol/L Potassium (3.6-5.0) mmol/L Chloride (98-107) mmol/L Carbon Dioxide (22-30) mmol/L BUN (9-20) mg/dL Creatinine (0.8-1.3) mg/dL Glucose (75-100) mg/dL POC Glucose (70-105) mg/dL Phosphorus (2.5-4.5) mg/dL Magnesium (1.7-2.3) mg/dL Ferritin (30.0-300.0) ng/mL Lactate Dehydrogenase (91-180) units/L Total Creatine Kinase (55-170) units/L C-Reactive Protein (0.00-1.30) mg/dL Albumin (3.9-5) g/dL Salicylates < 0.3 L (2.8-20.0) mg/dL Acetaminophen 5.0 L (10.0-30.0) ug/mL 07/12/21 07/12/21 07/12/21 Range/Units 21:31 21:31 23:14 WBC (4.5-11.0) K/mm3 Hct (35.5-45.6) % MCV (84-94) fl MCHC (32-34) % RDW (13.2-15.2) % Seg Neuts % (Manual) (40.0-70.0) % Lymphocytes % (Manual) (13.4-35.0) % Seg Neutrophils # Man (1.8-7.7) K/mm3 Lymphocytes # (Manual) (1.2-5.4) K/mm3 PT (12.2-14.9) Sec. INR (0.87-1.13) D-Dimer (0-234) ng/mlDDU VBG pH (7.320-7.420) Sodium 148 H 150 H (137-145) mmol/L Potassium 5.1 H 5.1 H (3.6-5.0) mmol/L Chloride (98-107) mmol/L Carbon Dioxide 6 L* 7 L* (22-30) mmol/L BUN 53 H 52 H (9-20) mg/dL Creatinine 1.6 H 1.6 H (0.8-1.3) mg/dL Glucose 610 H* 606 H* (75-100) mg/dL POC Glucose (70-105) mg/dL Phosphorus 5.70 H 6.00 H (2.5-4.5) mg/dL Magnesium 3.10 H 3.00 H (1.7-2.3) mg/dL Ferritin (30.0-300.0) ng/mL Lactate Dehydrogenase 822 H (91-180) units/L Total Creatine Kinase (55-170) units/L C-Reactive Protein 8.10 H (0.00-1.30) mg/dL Albumin (3.9-5) g/dL Salicylates (2.8-20.0) mg/dL Acetaminophen (10.0-30.0) ug/mL 07/12/21 07/12/21 07/12/21 Range/Units 23:14 23:14 23:14 WBC (4.5-11.0) K/mm3 Hct (35.5-45.6) % MCV (84-94) fl MCHC (32-34) % RDW (13.2-15.2) % Seg Neuts % (Manual) (40.0-70.0) % Lymphocytes % (Manual) (13.4-35.0) % Seg Neutrophils # Man (1.8-7.7) K/mm3 Lymphocytes # (Manual) (1.2-5.4) K/mm3 PT (12.2-14.9) Sec. INR (0.87-1.13) D-Dimer > 39600 H (0-234) ng/mlDDU VBG pH (7.320-7.420) Sodium (137-145) mmol/L Potassium (3.6-5.0) mmol/L Chloride (98-107) mmol/L Carbon Dioxide (22-30) mmol/L BUN (9-20) mg/dL Creatinine (0.8-1.3) mg/dL Glucose (75-100) mg/dL POC Glucose (70-105) mg/dL Phosphorus (2.5-4.5) mg/dL Magnesium (1.7-2.3) mg/dL Ferritin 4711.0 H (30.0-300.0) ng/mL Lactate Dehydrogenase 811 H (91-180) units/L Total Creatine Kinase (55-170) units/L C-Reactive Protein 8.30 H (0.00-1.30) mg/dL Albumin (3.9-5) g/dL Salicylates (2.8-20.0) mg/dL Acetaminophen (10.0-30.0) ug/mL 07/13/21 07/13/21 07/13/21 Range/Units 01:01 01:43 02:16 WBC (4.5-11.0) K/mm3 Hct (35.5-45.6) % MCV (84-94) fl MCHC (32-34) % RDW (13.2-15.2) % Seg Neuts % (Manual) (40.0-70.0) % Lymphocytes % (Manual) (13.4-35.0) % Seg Neutrophils # Man (1.8-7.7) K/mm3 Lymphocytes # (Manual) (1.2-5.4) K/mm3 PT (12.2-14.9) Sec. INR (0.87-1.13) D-Dimer (0-234) ng/mlDDU VBG pH (7.320-7.420) Sodium 129 L D (137-145) mmol/L Potassium (3.6-5.0) mmol/L Chloride (98-107) mmol/L Carbon Dioxide 15 L D (22-30) mmol/L BUN (9-20) mg/dL Creatinine (0.8-1.3) mg/dL Glucose 123 H (75-100) mg/dL POC Glucose 419 H 343 H (70-105) mg/dL Phosphorus (2.5-4.5) mg/dL Magnesium (1.7-2.3) mg/dL Ferritin (30.0-300.0) ng/mL Lactate Dehydrogenase (91-180) units/L Total Creatine Kinase (55-170) units/L C-Reactive Protein (0.00-1.30) mg/dL Albumin (3.9-5) g/dL Salicylates (2.8-20.0) mg/dL Acetaminophen (10.0-30.0) ug/mL 07/13/21 07/13/21 07/13/21 Range/Units 03:23 04:24 05:18 WBC (4.5-11.0) K/mm3 Hct (35.5-45.6) % MCV (84-94) fl MCHC (32-34) % RDW (13.2-15.2) % Seg Neuts % (Manual) (40.0-70.0) % Lymphocytes % (Manual) (13.4-35.0) % Seg Neutrophils # Man (1.8-7.7) K/mm3 Lymphocytes # (Manual) (1.2-5.4) K/mm3 PT (12.2-14.9) Sec. INR (0.87-1.13) D-Dimer (0-234) ng/mlDDU VBG pH (7.320-7.420) Sodium 154 H D (137-145) mmol/L Potassium (3.6-5.0) mmol/L Chloride 115.4 H (98-107) mmol/L Carbon Dioxide 15 L (22-30) mmol/L BUN 45 H (9-20) mg/dL Creatinine (0.8-1.3) mg/dL Glucose 270 H (75-100) mg/dL POC Glucose 295 H 259 H (70-105) mg/dL Phosphorus (2.5-4.5) mg/dL Magnesium (1.7-2.3) mg/dL Ferritin (30.0-300.0) ng/mL Lactate Dehydrogenase (91-180) units/L Total Creatine Kinase (55-170) units/L C-Reactive Protein (0.00-1.30) mg/dL Albumin (3.9-5) g/dL Salicylates (2.8-20.0) mg/dL Acetaminophen (10.0-30.0) ug/mL 07/13/21 07/13/21 07/13/21 Range/Units 05:18 05:21 06:31 WBC 14.1 H (4.5-11.0) K/mm3 Hct (35.5-45.6) % MCV (84-94) fl MCHC (32-34) % RDW (13.2-15.2) % Seg Neuts % (Manual) (40.0-70.0) % Lymphocytes % (Manual) (13.4-35.0) % Seg Neutrophils # Man (1.8-7.7) K/mm3 Lymphocytes # (Manual) (1.2-5.4) K/mm3 PT (12.2-14.9) Sec. INR (0.87-1.13) D-Dimer (0-234) ng/mlDDU VBG pH (7.320-7.420) Sodium (137-145) mmol/L Potassium (3.6-5.0) mmol/L Chloride (98-107) mmol/L Carbon Dioxide (22-30) mmol/L BUN (9-20) mg/dL Creatinine (0.8-1.3) mg/dL Glucose (75-100) mg/dL POC Glucose 239 H 227 H (70-105) mg/dL Phosphorus (2.5-4.5) mg/dL Magnesium (1.7-2.3) mg/dL Ferritin (30.0-300.0) ng/mL Lactate Dehydrogenase (91-180) units/L Total Creatine Kinase (55-170) units/L C-Reactive Protein (0.00-1.30) mg/dL Albumin (3.9-5) g/dL Salicylates (2.8-20.0) mg/dL Acetaminophen (10.0-30.0) ug/mL 07/13/21 07/13/21 07/13/21 Range/Units 08:18 09:22 11:29 WBC (4.5-11.0) K/mm3 Hct (35.5-45.6) % MCV (84-94) fl MCHC (32-34) % RDW (13.2-15.2) % Seg Neuts % (Manual) (40.0-70.0) % Lymphocytes % (Manual) (13.4-35.0) % Seg Neutrophils # Man (1.8-7.7) K/mm3 Lymphocytes # (Manual) (1.2-5.4) K/mm3 PT (12.2-14.9) Sec. INR (0.87-1.13) D-Dimer (0-234) ng/mlDDU VBG pH (7.320-7.420) Sodium 154 H (137-145) mmol/L Potassium (3.6-5.0) mmol/L Chloride 118.5 H (98-107) mmol/L Carbon Dioxide 20 L (22-30) mmol/L BUN 41 H (9-20) mg/dL Creatinine (0.8-1.3) mg/dL Glucose 228 H (75-100) mg/dL POC Glucose 226 H 202 H (70-105) mg/dL Phosphorus (2.5-4.5) mg/dL Magnesium (1.7-2.3) mg/dL Ferritin (30.0-300.0) ng/mL Lactate Dehydrogenase (91-180) units/L Total Creatine Kinase (55-170) units/L C-Reactive Protein (0.00-1.30) mg/dL Albumin (3.9-5) g/dL Salicylates (2.8-20.0) mg/dL Acetaminophen (10.0-30.0) ug/mL HEART Score - HEART Score Troponin: Troponin T < 0.010 ng/mL (0.00-0.029) 07/12/21 20:38
[2021-07-13] MEDS: FAMOTIDINE 20 MG/2 ML INJ IV SCH (13:09)
[2021-07-13] MEDS: dexAMETHasone 4 MG/ML VIAL IV SCH (13:09)
--- NOTE | 2021-07-13 14:21 | Consultation ---
History of Present Illness - Reason for Consult Consult date: 07/13/21 PUI COVID Requesting physician: FLORENCIO GRAY - History of Present Illness The patient is a 66-year-old male with diabetes admitted with DKA and confusion. ID consulted for COVID-19 PUI status. Test is still pending. Labs revealed WBC of 11.1 on admission, D-dimer was very high greater than 10K, CRP 8.3 chest x-ray did not reveal any pneumonia. Hypothermic on admission, now better. Review of Systems: reviewed in the chart, unable to obtain, minimize risk of transmission Past History Past Medical History: diabetes Medications and Allergies Allergies Allergy/AdvReac Type Severity Reaction Status Date / Time Unable to Assess Allergy Verified 07/12/21 22:40 Active Meds: Active Medications Acetaminophen (Acetaminophen 325 Mg Tab) 650 mg PO Q4H PRN PRN Reason: Pain MILD(1-3)/Fever >100.5/YOUNGBLOOD Albuterol (Albuterol 2.5 Mg/3 Ml Nebu) 2.5 mg IH Q4HRT PRN PRN Reason: Shortness Of Breath Albuterol/Ipratropium (Ipratropium/Albuterol Sulfate 3 Ml Ampul.Neb) 1 ampul IH Q6HRT [facility] Dexamethasone (Dexamethasone 4 Mg/Ml Vial) 6 mg IV DAILY [facility] Last Admin: 07/13/21 13:09 Dose: 6 mg Documented by: Dextrose (Dextrose 50% In Water (25gm) 50 Ml Syringe) 0 ml IV Q30MIN PRN; Protocol PRN Reason: Hypoglycemia Famotidine (Famotidine 20 Mg/2 Ml Inj) 20 mg IV BID [facility] Last Admin: 07/13/21 13:09 Dose: 20 mg Documented by: Hydromorphone HCl (Hydromorphone 1 Mg/1 Ml Inj) 0.5 mg IV Q3H PRN PRN Reason: Pain , Severe (7-10) Potassium Chloride/Dextrose/Sod Cl (D5w/0.45% Nacl/Kcl 20 Meq) 20 meq in 1,000 mls @ 125 mls/hr IV DIRECT [facility] Last Admin: 07/13/21 05:31 Dose: 125 mls/hr Documented by: Insulin Human Regular 100 (units/ Sodium Chloride) 100 mls @ 1 mls/hr IV TITR [facility]ESUS; Protocol Last Titration: 07/13/21 11:51 Dose: 3 units/hr, 3 mls/hr Documented by: Azithromycin (Zithromax/Ns) 500 mg in 250 mls @ 250 mls/hr IV Q24HR [facility]; Protocol Last Admin: 07/13/21 01:10 Dose: 250 mls/hr Documented by: Ceftriaxone Sodium (Rocephin/Ns 2 Gm/100 Ml) 2 gm in 100 mls @ 200 mls/hr IV Q24HR [facility]US; Protocol Last Admin: 07/13/21 13:08 Dose: 200 mls/hr Documented by: Ondansetron HCl (Ondansetron 4 Mg/2 Ml Inj) 4 mg IV Q8H PRN PRN Reason: Nausea And Vomiting Oxycodone/Acetaminophen (Oxycodone /Acetaminophen 5-325mg Tab) 1 tab PO Q6H PRN PRN Reason: Pain, Moderate (4-6) Sodium Chloride (Sodium Chloride 0.9% 10 Ml Flush Syringe) 10 ml IV BID [facility] Sodium Chloride (Sodium Chloride 0.9% 10 Ml Flush Syringe) 10 ml IV PRN PRN PRN Reason: LINE FLUSH Physical Examination - Physical Exam Narrative exam: Physical Exam (reviewed in chart to minimize risk of transmission) Constitutional: deferred Head, Ears, Nose: deferred Eyes: deferred Neck: deferred Oral: deferred Cardiovascular: deferred Respiratory: deferred GI: deferred Musculoskeletal: deferred Skin: deferred Hem/Lymphatic: deferred Psych: deferred Neurological: deferred - Constitutional Vitals: Vital Signs Temp Pulse Resp BP Pulse Ox 97.3 F L 107 H 23 141/79 90 07/13/21 06:00 07/13/21 13:00 07/13/21 13:00 07/13/21 13:00 07/13/21 13:00 Temperature -Last 24 Hours Temperature 97.3 F Temperature 94.2 F Temperature 91.5 F Results - Labs CBC & Chem 7: 07/13/21 05:18 07/13/21 09:22 Labs: Abnormal lab results 07/12/21 07/12/21 07/12/21 Range/Units 20:38 20:38 20:38 WBC 11.1 H (4.5-11.0) K/mm3 Hct 46.8 H (35.5-45.6) % MCV 96 H (84-94) fl MCHC 31 L (32-34) % RDW 15.3 H (13.2-15.2) % Seg Neuts % (Manual) 91.0 H (40.0-70.0) % Lymphocytes % (Manual) 6.0 L (13.4-35.0) % Seg Neutrophils # Man 10.1 H (1.8-7.7) K/mm3 Lymphocytes # (Manual) 0.7 L (1.2-5.4) K/mm3 PT 16.5 H (12.2-14.9) Sec. INR 1.28 H (0.87-1.13) D-Dimer (0-234) ng/mlDDU VBG pH (7.320-7.420) Sodium 146 H (137-145) mmol/L Potassium 5.2 H (3.6-5.0) mmol/L Chloride (98-107) mmol/L Carbon Dioxide 7 L* (22-30) mmol/L BUN 50 H (9-20) mg/dL Creatinine 1.5 H (0.8-1.3) mg/dL Glucose 617 H* (75-100) mg/dL POC Glucose (70-105) mg/dL Phosphorus (2.5-4.5) mg/dL Magnesium 3.20 H (1.7-2.3) mg/dL Ferritin (30.0-300.0) ng/mL Lactate Dehydrogenase (91-180) units/L Total Creatine Kinase 372 H (55-170) units/L C-Reactive Protein (0.00-1.30) mg/dL Albumin 3.2 L (3.9-5) g/dL Salicylates (2.8-20.0) mg/dL Acetaminophen (10.0-30.0) ug/mL 07/12/21 07/12/21 07/12/21 Range/Units 20:38 20:38 20:38 WBC (4.5-11.0) K/mm3 Hct (35.5-45.6) % MCV (84-94) fl MCHC (32-34) % RDW (13.2-15.2) % Seg Neuts % (Manual) (40.0-70.0) % Lymphocytes % (Manual) (13.4-35.0) % Seg Neutrophils # Man (1.8-7.7) K/mm3 Lymphocytes # (Manual) (1.2-5.4) K/mm3 PT (12.2-14.9) Sec. INR (0.87-1.13) D-Dimer (0-234) ng/mlDDU VBG pH 7.170 L* (7.320-7.420) Sodium (137-145) mmol/L Potassium (3.6-5.0) mmol/L Chloride (98-107) mmol/L Carbon Dioxide (22-30) mmol/L BUN (9-20) mg/dL Creatinine (0.8-1.3) mg/dL Glucose (75-100) mg/dL POC Glucose (70-105) mg/dL Phosphorus (2.5-4.5) mg/dL Magnesium (1.7-2.3) mg/dL Ferritin (30.0-300.0) ng/mL Lactate Dehydrogenase (91-180) units/L Total Creatine Kinase (55-170) units/L C-Reactive Protein (0.00-1.30) mg/dL Albumin (3.9-5) g/dL Salicylates < 0.3 L (2.8-20.0) mg/dL Acetaminophen 5.0 L (10.0-30.0) ug/mL 07/12/21 07/12/21 07/12/21 Range/Units 21:31 21:31 23:14 WBC (4.5-11.0) K/mm3 Hct (35.5-45.6) % MCV (84-94) fl MCHC (32-34) % RDW (13.2-15.2) % Seg Neuts % (Manual) (40.0-70.0) % Lymphocytes % (Manual) (13.4-35.0) % Seg Neutrophils # Man (1.8-7.7) K/mm3 Lymphocytes # (Manual) (1.2-5.4) K/mm3 PT (12.2-14.9) Sec. INR (0.87-1.13) D-Dimer (0-234) ng/mlDDU VBG pH (7.320-7.420) Sodium 148 H 150 H (137-145) mmol/L Potassium 5.1 H 5.1 H (3.6-5.0) mmol/L Chloride (98-107) mmol/L Carbon Dioxide 6 L* 7 L* (22-30) mmol/L BUN 53 H 52 H (9-20) mg/dL Creatinine 1.6 H 1.6 H (0.8-1.3) mg/dL Glucose 610 H* 606 H* (75-100) mg/dL POC Glucose (70-105) mg/dL Phosphorus 5.70 H 6.00 H (2.5-4.5) mg/dL Magnesium 3.10 H 3.00 H (1.7-2.3) mg/dL Ferritin (30.0-300.0) ng/mL Lactate Dehydrogenase 822 H (91-180) units/L Total Creatine Kinase (55-170) units/L C-Reactive Protein 8.10 H (0.00-1.30) mg/dL Albumin (3.9-5) g/dL Salicylates (2.8-20.0) mg/dL Acetaminophen (10.0-30.0) ug/mL 07/12/21 07/12/21 07/12/21 Range/Units 23:14 23:14 23:14 WBC (4.5-11.0) K/mm3 Hct (35.5-45.6) % MCV (84-94) fl MCHC (32-34) % RDW (13.2-15.2) % Seg Neuts % (Manual) (40.0-70.0) % Lymphocytes % (Manual) (13.4-35.0) % Seg Neutrophils # Man (1.8-7.7) K/mm3 Lymphocytes # (Manual) (1.2-5.4) K/mm3 PT (12.2-14.9) Sec. INR (0.87-1.13) D-Dimer > 42313 H (0-234) ng/mlDDU VBG pH (7.320-7.420) Sodium (137-145) mmol/L Potassium (3.6-5.0) mmol/L Chloride (98-107) mmol/L Carbon Dioxide (22-30) mmol/L BUN (9-20) mg/dL Creatinine (0.8-1.3) mg/dL Glucose (75-100) mg/dL POC Glucose (70-105) mg/dL Phosphorus (2.5-4.5) mg/dL Magnesium (1.7-2.3) mg/dL Ferritin 4711.0 H (30.0-300.0) ng/mL Lactate Dehydrogenase 811 H (91-180) units/L Total Creatine Kinase (55-170) units/L C-Reactive Protein 8.30 H (0.00-1.30) mg/dL Albumin (3.9-5) g/dL Salicylates (2.8-20.0) mg/dL Acetaminophen (10.0-30.0) ug/mL 07/13/21 07/13/21 07/13/21 Range/Units 01:01 01:43 02:16 WBC (4.5-11.0) K/mm3 Hct (35.5-45.6) % MCV (84-94) fl MCHC (32-34) % RDW (13.2-15.2) % Seg Neuts % (Manual) (40.0-70.0) % Lymphocytes % (Manual) (13.4-35.0) % Seg Neutrophils # Man (1.8-7.7) K/mm3 Lymphocytes # (Manual) (1.2-5.4) K/mm3 PT (12.2-14.9) Sec. INR (0.87-1.13) D-Dimer (0-234) ng/mlDDU VBG pH (7.320-7.420) Sodium 129 L D (137-145) mmol/L Potassium (3.6-5.0) mmol/L Chloride (98-107) mmol/L Carbon Dioxide 15 L D (22-30) mmol/L BUN (9-20) mg/dL Creatinine (0.8-1.3) mg/dL Glucose 123 H (75-100) mg/dL POC Glucose 419 H 343 H (70-105) mg/dL Phosphorus (2.5-4.5) mg/dL Magnesium (1.7-2.3) mg/dL Ferritin (30.0-300.0) ng/mL Lactate Dehydrogenase (91-180) units/L Total Creatine Kinase (55-170) units/L C-Reactive Protein (0.00-1.30) mg/dL Albumin (3.9-5) g/dL Salicylates (2.8-20.0) mg/dL Acetaminophen (10.0-30.0) ug/mL 07/13/21 07/13/21 07/13/21 Range/Units 03:23 04:24 05:18 WBC (4.5-11.0) K/mm3 Hct (35.5-45.6) % MCV (84-94) fl MCHC (32-34) % RDW (13.2-15.2) % Seg Neuts % (Manual) (40.0-70.0) % Lymphocytes % (Manual) (13.4-35.0) % Seg Neutrophils # Man (1.8-7.7) K/mm3 Lymphocytes # (Manual) (1.2-5.4) K/mm3 PT (12.2-14.9) Sec. INR (0.87-1.13) D-Dimer (0-234) ng/mlDDU VBG pH (7.320-7.420) Sodium 154 H D (137-145) mmol/L Potassium (3.6-5.0) mmol/L Chloride 115.4 H (98-107) mmol/L Carbon Dioxide 15 L (22-30) mmol/L BUN 45 H (9-20) mg/dL Creatinine (0.8-1.3) mg/dL Glucose 270 H (75-100) mg/dL POC Glucose 295 H 259 H (70-105) mg/dL Phosphorus (2.5-4.5) mg/dL Magnesium (1.7-2.3) mg/dL Ferritin (30.0-300.0) ng/mL Lactate Dehydrogenase (91-180) units/L Total Creatine Kinase (55-170) units/L C-Reactive Protein (0.00-1.30) mg/dL Albumin (3.9-5) g/dL Salicylates (2.8-20.0) mg/dL Acetaminophen (10.0-30.0) ug/mL 07/13/21 07/13/21 07/13/21 Range/Units 05:18 05:21 06:31 WBC 14.1 H (4.5-11.0) K/mm3 Hct (35.5-45.6) % MCV (84-94) fl MCHC (32-34) % RDW (13.2-15.2) % Seg Neuts % (Manual) (40.0-70.0) % Lymphocytes % (Manual) (13.4-35.0) % Seg Neutrophils # Man (1.8-7.7) K/mm3 Lymphocytes # (Manual) (1.2-5.4) K/mm3 PT (12.2-14.9) Sec. INR (0.87-1.13) D-Dimer (0-234) ng/mlDDU VBG pH (7.320-7.420) Sodium (137-145) mmol/L Potassium (3.6-5.0) mmol/L Chloride (98-107) mmol/L Carbon Dioxide (22-30) mmol/L BUN (9-20) mg/dL Creatinine (0.8-1.3) mg/dL Glucose (75-100) mg/dL POC Glucose 239 H 227 H (70-105) mg/dL Phosphorus (2.5-4.5) mg/dL Magnesium (1.7-2.3) mg/dL Ferritin (30.0-300.0) ng/mL Lactate Dehydrogenase (91-180) units/L Total Creatine Kinase (55-170) units/L C-Reactive Protein (0.00-1.30) mg/dL Albumin (3.9-5) g/dL Salicylates (2.8-20.0) mg/dL Acetaminophen (10.0-30.0) ug/mL 07/13/21 07/13/21 07/13/21 Range/Units 08:18 09:22 11:29 WBC (4.5-11.0) K/mm3 Hct (35.5-45.6) % MCV (84-94) fl MCHC (32-34) % RDW (13.2-15.2) % Seg Neuts % (Manual) (40.0-70.0) % Lymphocytes % (Manual) (13.4-35.0) % Seg Neutrophils # Man (1.8-7.7) K/mm3 Lymphocytes # (Manual) (1.2-5.4) K/mm3 PT (12.2-14.9) Sec. INR (0.87-1.13) D-Dimer (0-234) ng/mlDDU VBG pH (7.320-7.420) Sodium 154 H (137-145) mmol/L Potassium (3.6-5.0) mmol/L Chloride 118.5 H (98-107) mmol/L Carbon Dioxide 20 L (22-30) mmol/L BUN 41 H (9-20) mg/dL Creatinine (0.8-1.3) mg/dL Glucose 228 H (75-100) mg/dL POC Glucose 226 H 202 H (70-105) mg/dL Phosphorus (2.5-4.5) mg/dL Magnesium (1.7-2.3) mg/dL Ferritin (30.0-300.0) ng/mL Lactate Dehydrogenase (91-180) units/L Total Creatine Kinase (55-170) units/L C-Reactive Protein (0.00-1.30) mg/dL Albumin (3.9-5) g/dL Salicylates (2.8-20.0) mg/dL Acetaminophen (10.0-30.0) ug/mL - Imaging and Cardiology Chest x-ray: report reviewed, image reviewed (no pneumonia seen) Assessment and Plan Cultures: SARS CoV2 PCR: Pending 07/12/2021 blood culture: In process A/P: 66/M with diabetes admitted with DKA: #Acute DKA #Acute encephalopathy #COVID-19 PUI Recs: Follow-up procalcitonin, if low, discontinue antibiotics Follow-up COVID-19 PCR Ally Barron MD, FACP [facility] ([facility] O: [phone] F: [phone]
[2021-07-13 15:15] LABS: Band Neutrophils # (Manual) 1.3 K/mm3; Myelocytes # (Manual) 0.1 K/mm3; RBC Morphology Normal; Total Cells Counted 100
[2021-07-13 15:16] LABS: Platelet Estimate Consistent w Auto
--- NOTE | 2021-07-13 15:33 | Vascular Lab Report ---
DUPLEX DOPPLER LOWER EXTREMITY VEINS, BILATERAL INDICATION: r/o dvt. TECHNIQUE: Duplex doppler imaging was performed through the veins of both lower extremities using venous jessi barbie and other maneuvers. COMPARISON: None available. FINDINGS: Right Common Femoral vein: Negative. Right Superficial Femoral vein: Negative. Right Popliteal vein: Negative. Right Calf veins: Acute occlusive DVT noted in the posterior tibial vein and peroneal vein. Left Common Femoral vein: Negative. Left Superficial Femoral vein: Negative. Left Popliteal vein: Negative. Left Calf veins: Acute occlusive DVT noted in the posterior tibial vein and peroneal vein. Additional findings: Superficial thrombus noted in the left gastrocnemius vein. IMPRESSION: 1. Bilateral acute DVT in the posterior tibial veins and peroneal veins 2. Superficial thrombus noted in the left calf. 3. medical technologist hematology notified Dr. Mueller of these findings at 1505 hrs EST Signer Name: Philly Diaz MD Signed: 07/13/2021 3:29 PM Workstation Name: [id number]
--- NOTE | 2021-07-13 15:51 | Consultation ---
History of Present Illness Consult date: 07/13/21 Chief complaint: Abnormal CT History of present illness: 6-year-old with past medical history of diabetes was brought to the emergency room because of high blood sugar and generalized weakness. The patient is altered. He is asking for something to drink. He is not accompanied by friends or family for collateral information. History mostly obtained by EMS. EMS reported to myself that this patient does not take medications, including me dications for diabetes, and they responded to a complaint of generalized weakness and high blood sugar. They reported that the patient had a high blood sugar in the field, and was basically laying down without signs of trauma or history of trauma at home. In the emergency room patient is found to have DKA. Patient blood glucose is 617 and bicarb is 7. Initial CT scan of the head shows no acute intracranial abnormality.2. Focal hypodense areas in the left frontal lobe and right occipital lobe are nonspecific recommend further evaluation with MRI. Past History P Past History Past Medical History: diabetes Medications and Allergies Allergies Allergy/AdvReac Type Severity Reaction Status Date / Time Unable to Assess Allergy Verified 07/12/21 22:40 Active Meds: Active Medications Acetaminophen (Acetaminophen 325 Mg Tab) 650 mg PO Q4H PRN PRN Reason: Pain MILD(1-3)/Fever >100.5/YOUNGBLOOD Albuterol (Albuterol 2.5 Mg/3 Ml Nebu) 2.5 mg IH Q4HRT PRN PRN Reason: Shortness Of Breath Albuterol/Ipratropium (Ipratropium/Albuterol Sulfate 3 Ml Ampul.Neb) 1 ampul IH Q6HRT COUNTS INCLUDE 234 BEDS AT THE [facility] Dexamethasone (Dexamethasone 4 Mg/Ml Vial) 6 mg IV DAILY COUNTS INCLUDE 234 BEDS AT THE [facility] Last Admin: 07/13/21 13:09 Dose: 6 mg Documented by: Dextrose (Dextrose 50% In Water (25gm) 50 Ml Syringe) 0 ml IV Q30MIN PRN; Protocol PRN Reason: Hypoglycemia Famotidine (Famotidine 20 Mg/2 Ml Inj) 20 mg IV BID COUNTS INCLUDE 234 BEDS AT THE [facility] Last Admin: 07/13/21 13:09 Dose: 20 mg Documented by: Hydromorphone HCl (Hydromorphone 1 Mg/1 Ml Inj) 0.5 mg IV Q3H PRN PRN Reason: Pain , Severe (7-10) Potassium Chloride/Dextrose/Sod Cl (D5w/0.45% Nacl/Kcl 20 Meq) 20 meq in 1,000 mls @ 125 mls/hr IV DIRECT JESUS Last Admin: 07/13/21 05:31 Dose: 125 mls/hr Documented by: Insulin Human Regular 100 (units/ Sodium Chloride) 100 mls @ 1 mls/hr IV TITR JESUS; Protocol Last Titration: 07/13/21 11:51 Dose: 3 units/hr, 3 mls/hr Documented by: Azithromycin (Zithromax/Ns) 500 mg in 250 mls @ 250 mls/hr IV Q24HR JESUS; Protocol Last Admin: 07/13/21 01:10 Dose: 250 mls/hr Documented by: Ceftriaxone Sodium (Rocephin/Ns 2 Gm/100 Ml) 2 gm in 100 mls @ 200 mls/hr IV Q24HR JESUS; Protocol Last Admin: 07/13/21 13:08 Dose: 200 mls/hr Documented by: Ondansetron HCl (Ondansetron 4 Mg/2 Ml Inj) 4 mg IV Q8H PRN PRN Reason: Nausea And Vomiting Oxycodone/Acetaminophen (Oxycodone /Acetaminophen 5-325mg Tab) 1 tab PO Q6H PRN PRN Reason: Pain, Moderate (4-6) Sodium Chloride (Sodium Chloride 0.9% 10 Ml Flush Syringe) 10 ml IV BID JESUS Sodium Chloride (Sodium Chloride 0.9% 10 Ml Flush Syringe) 10 ml IV PRN PRN PRN Reason: LINE FLUSH Physical Examination - Vital Signs Vital Signs: Vital Signs Temp Pulse Resp BP Pulse Ox 91.5 F L 83 24 90/48 78 L 07/12/21 21:15 07/12/21 21:15 07/12/21 21:15 07/12/21 21:15 07/12/21 21:15 - Physical Exam Narrative exam: The patient was not examined since the patient is under COVID restriction . Results - Laboratory Findings CBC and BMP: 07/13/21 05:18 07/13/21 09:22 Abnormal Lab Findings: Abnormal Labs 07/12/21 07/12/21 07/12/21 20:38 20:38 20:38 WBC 11.1 H Hct 46.8 H MCV 96 H MCHC 31 L RDW 15.3 H Seg Neuts % (Manual) 91.0 H Lymphocytes % (Manual) 6.0 L Seg Neutrophils # Man 10.1 H Lymphocytes # (Manual) 0.7 L PT 16.5 H INR 1.28 H D-Dimer VBG pH Sodium 146 H Potassium 5.2 H Chloride Carbon Dioxide 7 L* BUN 50 H Creatinine 1.5 H Glucose 617 H* POC Glucose Phosphorus Magnesium 3.20 H Ferritin Lactate Dehydrogenase Total Creatine Kinase 372 H C-Reactive Protein Albumin 3.2 L Salicylates Acetaminophen Coronavirus (PCR) 07/12/21 07/12/21 07/12/21 20:38 20:38 20:38 WBC Hct MCV MCHC RDW Seg Neuts % (Manual) Lymphocytes % (Manual) Seg Neutrophils # Man Lymphocytes # (Manual) PT INR D-Dimer VBG pH 7.170 L* Sodium Potassium Chloride Carbon Dioxide BUN Creatinine Glucose POC Glucose Phosphorus Magnesium Ferritin Lactate Dehydrogenase Total Creatine Kinase C-Reactive Protein Albumin Salicylates < 0.3 L Acetaminophen 5.0 L Coronavirus (PCR) 07/12/21 07/12/21 07/12/21 21:31 21:31 23:14 WBC Hct MCV MCHC RDW Seg Neuts % (Manual) Lymphocytes % (Manual) Seg Neutrophils # Man Lymphocytes # (Manual) PT INR D-Dimer VBG pH Sodium 148 H 150 H Potassium 5.1 H 5.1 H Chloride Carbon Dioxide 6 L* 7 L* BUN 53 H 52 H Creatinine 1.6 H 1.6 H Glucose 610 H* 606 H* POC Glucose Phosphorus 5.70 H 6.00 H Magnesium 3.10 H 3.00 H Ferritin Lactate Dehydrogenase 822 H Total Creatine Kinase C-Reactive Protein 8.10 H Albumin Salicylates Acetaminophen Coronavirus (PCR) 07/12/21 07/12/21 07/12/21 23:14 23:14 23:14 WBC Hct MCV MCHC RDW Seg Neuts % (Manual) Lymphocytes % (Manual) Seg Neutrophils # Man Lymphocytes # (Manual) PT INR D-Dimer > 17338 H VBG pH Sodium Potassium Chloride Carbon Dioxide BUN Creatinine Glucose POC Glucose Phosphorus Magnesium Ferritin 4711.0 H Lactate Dehydrogenase 811 H Total Creatine Kinase C-Reactive Protein 8.30 H Albumin Salicylates Acetaminophen Coronavirus (PCR) 07/13/21 07/13/21 07/13/21 01:01 01:43 02:16 WBC Hct MCV MCHC RDW Seg Neuts % (Manual) Lymphocytes % (Manual) Seg Neutrophils # Man Lymphocytes # (Manual) PT INR D-Dimer VBG pH Sodium 129 L D Potassium Chloride Carbon Dioxide 15 L D BUN Creatinine Glucose 123 H POC Glucose 419 H 343 H Phosphorus Magnesium Ferritin Lactate Dehydrogenase Total Creatine Kinase C-Reactive Protein Albumin Salicylates Acetaminophen Coronavirus (PCR) 07/13/21 07/13/21 07/13/21 03:23 04:24 05:18 WBC Hct MCV MCHC RDW Seg Neuts % (Manual) Lymphocytes % (Manual) Seg Neutrophils # Man Lymphocytes # (Manual) PT INR D-Dimer VBG pH Sodium 154 H D Potassium Chloride 115.4 H Carbon Dioxide 15 L BUN 45 H Creatinine Glucose 270 H POC Glucose 295 H 259 H Phosphorus Magnesium Ferritin Lactate Dehydrogenase Total Creatine Kinase C-Reactive Protein Albumin Salicylates Acetaminophen Coronavirus (PCR) 07/13/21 07/13/21 07/13/21 05:18 05:21 06:31 WBC 14.1 H Hct MCV MCHC RDW Seg Neuts % (Manual) 86.0 H Lymphocytes % (Manual) 4.0 L Seg Neutrophils # Man 12.1 H Lymphocytes # (Manual) 0.6 L PT INR D-Dimer VBG pH Sodium Potassium Chloride Carbon Dioxide BUN Creatinine Glucose POC Glucose 239 H 227 H Phosphorus Magnesium Ferritin Lactate Dehydrogenase Total Creatine Kinase C-Reactive Protein Albumin Salicylates Acetaminophen Coronavirus (PCR) 07/13/21 07/13/21 07/13/21 08:18 09:22 11:29 WBC Hct MCV MCHC RDW Seg Neuts % (Manual) Lymphocytes % (Manual) Seg Neutrophils # Man Lymphocytes # (Manual) PT INR D-Dimer VBG pH Sodium 154 H Potassium Chloride 118.5 H Carbon Dioxide 20 L BUN 41 H Creatinine Glucose 228 H POC Glucose 226 H 202 H Phosphorus Magnesium Ferritin Lactate Dehydrogenase Total Creatine Kinase C-Reactive Protein Albumin Salicylates Acetaminophen Coronavirus (PCR) 07/13/21 Unknown WBC Hct MCV MCHC RDW Seg Neuts % (Manual) Lymphocytes % (Manual) Seg Neutrophils # Man Lymphocytes # (Manual) PT INR D-Dimer VBG pH Sodium Potassium Chloride Carbon Dioxide BUN Creatinine Glucose POC Glucose Phosphorus Magnesium Ferritin Lactate Dehydrogenase Total Creatine Kinase C-Reactive Protein Albumin Salicylates Acetaminophen Coronavirus (PCR) Positive A Assessment and Plan !. Abnormal CT - there may represent old CVA given the risk factors, the patient needs further evaluation in form of MRI Brain and MRA Brain . 2. Currently continue the current plan. 3. Follow up in office once stable 4. Call Back with Questions. Dr. Monico CROWDER
[2021-07-13 17:42] LABS: BUN/Creatinine Ratio 39; Blood Urea Nitrogen 35 mg/dL (9-20); Hemolysis Index 19
[2021-07-13] MEDS: INSULIN REGULAR, HUMAN 100 UNITS in SODIUM CHLORIDE 0.9% 99 ML IV SCH (20:38)
[2021-07-13] MEDS ORDERED: hydrALAZINE 20 MG/1 ML INJ IV PRN (21:05)
[2021-07-13] MEDS ORDERED: HEPARIN 10,000 UNITS/10 ML VIAL IV PRN (21:08)
[2021-07-13] MEDS ORDERED: SODIUM CHLORIDE 0.9% 1000 ML 1,000 ML IV ONE (21:10)
--- NOTE | 2021-07-13 21:23 | Progress Note ---
<MELISSALIVIA TanSerg - Last Filed: 07/13/21 21:21> Assessment and Plan Assessment and plan: This 66-year-old female with DM admitted as a COVID-19 PUI with DKA Neuro: Acute metabolic encephalopathy -07/09 CT head-> see results -Avoid delirium -Aspiration/fall precautions -Neuro consulted, appreciate recommendations -MRI brain and MRA brain pending Cardio: ST -Blood Pressure monitoring per protocol -As needed hydralazine Respiratory: Rule out PE acute hypoxic respiratory failure -Patient is on nonrebreather -CTA chest pending -Supplemental oxygen as needed -Pulmonary hygiene GI: N.p.o. -Patient is n.p.o. she remains on DKA protocol -CC diet when appropriate -BR: Colace -PPI : LUIS M, hyponatremia, hyperkalemia, hyper chloremia, metabolic acidosis, hyperphosphatemia, hypermagnesemia -Presented with a BUN/creatinine 1.5/50 but now trending down words -Strict urine output -Renally dose medications -Avoid nephrotoxic medication -Consider nephrology work-up if worsening Heme: Leukocytosis, DVT -BLE Dopplar US shows acute occlusive DVT noted in the posterior tibial vein and peroneal vein -Started on heparin drip -SCDs to bilateral ultrasound in bed -Trend CBC -SCDs to bilateral actions while in bed Endo: DKA -DKA protocol -Hemaglobin A1C pending -CC diet when appropriate -Serial BMP ID: COVID-19 -COVID-19 PCR positive -Infectious disease consulted, patient recommendations -Currently on empiric antibiotics -Patient started on dexamethasone -Isolation/droplet precautions -Prone as tolerated -Trend COVID-19 inflammatory markers -Anticoagulation per protocol -Pulmonary hygiene -SPO2 monitoring -Follow culture data The high probability of a clinically significant, sudden or life threatening det erioration of the [pulm,ID,endo] system(s) required my full and direct attention, intervention and personal management. The aggregate critical care time was [60] minutes. This time is in addition to time spent performing reported procedures but includes the following: [x] Data Review and interpretation [x] Patient assessment and monitoring of vital signs [x] Documentation [x] Medication orders and management Disposition Plan: icu Total Time Spent with Patient (Minutes): 60 History Interval history: This is 66-year-old male with DM presented to emergency department because of high blood sugar and generalized weakness. Work-up in the emergency department showed lab work consistent with DKA, CT head scan of head shows no acute intracranial abnormality. Patient was also made a COVID-19 PUI 07/13: Patient's COVID-19 PCR resulted as positive, remains on insulin drip as anion gap has not closed, CTA chest ordered. Heparin gtt, DVT on BLE dopplar US Hospitalist Physical - Constitutional Vitals: Temp Pulse Resp BP Pulse Ox 98.1 F 113 H 28 H 157/96 87 07/13/21 15:57 07/13/21 15:00 07/13/21 15:00 07/13/21 15:00 07/13/21 15:00 General appearance: Present: mild distress, well-nourished - EENT Eyes: Present: PERRL ENT: clear oral mucosa - Neck Neck: Present: normal ROM - Respiratory Respiratory effort: normal Respiratory: bilateral: diminished - Cardiovascular Rhythm: regular Heart Sounds: Present: S1 & S2. Absent: systolic murmur, diastolic murmur - Extremities Extremities: no ischemia, pulses intact, pulses symmetrical, No edema, normal temperature, normal color Peripheral Pulses: within normal limits - Abdominal General gastrointestinal: soft, non-tender, non-distended, normal bowel sounds - Integumentary Integumentary: Present: warm, dry - Psychiatric Psychiatric: cooperative - Neurologic Neurologic: moves all extremities - Allied Health Allied health notes reviewed: nursing, RT HEART Score - HEART Score Troponin: Troponin T < 0.010 ng/mL (0.00-0.029) 07/12/21 20:38 Results - Labs CBC & Chem 7: 07/13/21 05:18 07/13/21 16:18 Labs: Laboratory Last Values WBC 14.1 K/mm3 (4.5-11.0) H 07/13/21 05:18 RBC 4.61 M/mm3 (3.65-5.03) 07/13/21 05:18 Hgb 13.4 gm/dl (11.8-15.2) 07/13/21 05:18 Hct 41.4 % (35.5-45.6) 07/13/21 05:18 MCV 90 fl (84-94) 07/13/21 05:18 MCH 29 pg (28-32) 07/13/21 05:18 MCHC 33 % (32-34) 07/13/21 05:18 RDW 14.0 % (13.2-15.2) 07/13/21 05:18 Plt Count 196 K/mm3 (140-440) 07/13/21 05:18 Add Manual Diff Complete 07/13/21 05:18 Total Counted 100 07/13/21 05:18 Seg Neutrophils % Dinkey [employer] Firer 07/13/21 05:18 Seg Neuts % (Manual) 86.0 % (40.0-70.0) H 07/13/21 05:18 Band Neutrophils % 9.0 % 07/13/21 05:18 Lymphocytes % (Manual) 4.0 % (13.4-35.0) L 07/13/21 05:18 Monocytes % (Manual) 3.0 % (0.0-7.3) 07/12/21 20:38 Myelocytes % 1.0 % 07/13/21 05:18 Nucleated RBC % Not Reportable 07/13/21 05:18 Seg Neutrophils # Man 12.1 K/mm3 (1.8-7.7) H 07/13/21 05:18 Band Neutrophils # 1.3 K/mm3 07/13/21 05:18 Lymphocytes # (Manual) 0.6 K/mm3 (1.2-5.4) L 07/13/21 05:18 Abs React Lymphs (Man) 0.0 K/mm3 07/13/21 05:18 Monocytes # (Manual) 0.0 K/mm3 (0.0-0.8) 07/13/21 05:18 Eosinophils # (Manual) 0.0 K/mm3 (0.0-0.4) 07/13/21 05:18 Basophils # (Manual) 0.0 K/mm3 (0.0-0.1) 07/13/21 05:18 Metamyelocytes # 0.0 K/mm3 07/13/21 05:18 Myelocytes # 0.1 K/mm3 07/13/21 05:18 Promyelocytes # 0.0 K/mm3 07/13/21 05:18 Blast Cells # 0.0 K/mm3 07/13/21 05:18 WBC Morphology Not Reportable 07/13/21 05:18 Hypersegmented Neuts Not Reportable 07/13/21 05:18 Hyposegmented Neuts Not Reportable 07/13/21 05:18 Hypogranular Neuts Not Reportable 07/13/21 05:18 Smudge Cells Not Reportable 07/13/21 05:18 Toxic Granulation Not Reportable 07/13/21 05:18 Toxic Vacuolation Not Reportable 07/13/21 05:18 Dohle Bodies Not Reportable 07/13/21 05:18 Pelger-Huet Anomaly Not Reportable 07/13/21 05:18 Isha Rods Not Reportable 07/13/21 05:18 Platelet Estimate Consistent w auto 07/13/21 05:18 Clumped Platelets Not Reportable 07/13/21 05:18 Plt Clumps, EDTA Not Reportable 07/13/21 05:18 Large Platelets Not Reportable 07/13/21 05:18 Giant Platelets Not Reportable 07/13/21 05:18 Platelet Satelliting Not Reportable 07/13/21 05:18 Plt Morphology Comment Not Reportable 07/13/21 05:18 RBC Morphology Normal 07/13/21 05:18 Dimorphic RBCs Not Reportable 07/13/21 05:18 Polychromasia Not Reportable 07/13/21 05:18 Hypochromasia Not Reportable 07/13/21 05:18 Poikilocytosis Not Reportable 07/13/21 05:18 Anisocytosis Not Reportable 07/13/21 05:18 Microcytosis Not Reportable 07/13/21 05:18 Macrocytosis Not Reportable 07/13/21 05:18 Spherocytes Not Reportable 07/13/21 05:18 Pappenheimer Bodies Not Reportable 07/13/21 05:18 Sickle Cells Not Reportable 07/13/21 05:18 Target Cells Not Reportable 07/13/21 05:18 Tear Drop Cells Not Reportable 07/13/21 05:18 Ovalocytes Not Reportable 07/13/21 05:18 Helmet Cells Not Reportable 07/13/21 05:[address] [place] Bodies Not Reportable 07/13/21 05:18 [place] Rings Not Reportable 07/13/21 05:18 [place] Cells Not Reportable 07/13/21 05:18 Bite Cells Not Reportable 07/13/21 05:18 Crenated Cell Not Reportable 07/13/21 05:18 Elliptocytes Not Reportable 07/13/21 05:18 Acanthocytes (Spur) Not Reportable 07/13/21 05:18 Rouleaux Not Reportable 07/13/21 05:18 Hemoglobin C Crystals Not Reportable 07/13/21 05:18 Schistocytes Not Reportable 07/13/21 05:18 Malaria parasites Not Reportable 07/13/21 05:18 Jonn Bodies Not Reportable 07/13/21 05:18 Hem Pathologist Commnt No 07/13/21 05:18 PT 16.5 Sec. (12.2-14.9) H 07/12/21 20:38 INR 1.28 (0.87-1.13) H 07/12/21 20:38 D-Dimer > 43239 ng/mlDDU (0-234) H 07/12/21 23:14 VBG pH 7.170 (7.320-7.420) L* 07/12/21 20:38 Sodium 152 mmol/L (137-145) H 07/13/21 16:18 Potassium 4.3 mmol/L (3.6-5.0) 07/13/21 16:18 Chloride 119.9 mmol/L (98-107) H 07/13/21 16:18 Carbon Dioxide 21 mmol/L (22-30) L 07/13/21 16:18 Anion Gap 15 mmol/L 07/13/21 16:18 BUN 35 mg/dL (9-20) H 07/13/21 16:18 Creatinine 0.9 mg/dL (0.8-1.3) 07/13/21 16:18 Estimated GFR > 60 ml/min 07/13/21 16:18 BUN/Creatinine Ratio 39 % 07/13/21 16:18 Glucose 183 mg/dL (75-100) H 07/13/21 16:18 POC Glucose 181 mg/dL (70-105) H 07/13/21 19:32 Ketones Quantitative Moderate (Negative) 07/12/21 20:38 Lactic Acid 1.90 mmol/L (0.7-2.0) 07/12/21 20:38 Calcium 9.0 mg/dL (8.4-10.2) 07/13/21 16:18 Phosphorus 6.00 mg/dL (2.5-4.5) H 07/12/21 23:14 Magnesium 3.00 mg/dL (1.7-2.3) H 07/12/21 23:14 Ferritin 4711.0 ng/mL (30.0-300.0) H 07/12/21 23:14 Total Bilirubin 0.30 mg/dL (0.1-1.2) 07/12/21 20:38 AST 22 units/L (5-40) 07/12/21 20:38 ALT 13 units/L (7-56) 07/12/21 20:38 Alkaline Phosphatase 109 units/L (35-129) 07/12/21 20:38 Ammonia 45.0 umol/L (25-60) 07/12/21 20:38 Lactate Dehydrogenase 811 units/L (91-180) H 07/12/21 23:14 Total Creatine Kinase 372 units/L (55-170) H 07/12/21 20:38 Troponin T < 0.010 ng/mL (0.00-0.029) 07/12/21 20:38 C-Reactive Protein 8.30 mg/dL (0.00-1.30) H 07/12/21 23:14 Total Protein 7.0 g/dL (6.3-8.2) 07/12/21 20:38 Albumin 3.2 g/dL (3.9-5) L 07/12/21 20:38 Albumin/Globulin Ratio 0.8 % 07/12/21 20:38 TSH 0.819 mlU/mL (0.270-4.200) 07/12/21 20:38 Urine Color Straw (Yellow) 07/13/21 01:33 Urine Turbidity Clear (Clear) 07/13/21 01:33 Urine pH 5.0 (5.0-7.0) 07/13/21 01:33 Ur Specific Nunda 1.025 (1.003-1.030) 07/13/21 01:33 Urine Protein 30 mg/dl mg/dL (Negative) 07/13/21 01:33 Urine Glucose (UA) >=500 mg/dL (Negative) 07/13/21 01:33 Urine Ketones 80 mg/dL (Negative) 07/13/21 01:33 Urine Blood Mod (Negative) 07/13/21 01:33 Urine Nitrite Neg (Negative) 07/13/21 01:33 Urine Bilirubin Neg (Negative) 07/13/21 01:33 Urine Urobilinogen < 2.0 mg/dL (<2.0) 07/13/21 01:33 Ur Leukocyte Esterase Neg (Negative) 07/13/21 01:33 Urine WBC (Auto) < 1.0 /HPF (0.0-6.0) 07/13/21 01:33 Urine RBC (Auto) 1.0 /HPF (0.0-6.0) 07/13/21 01:33 U Epithel Cells (Auto) < 1.0 /HPF (0-13.0) 07/13/21 01:33 Hyaline Casts 1 /LPF 07/13/21 01:33 Urine Mucus Few /HPF 07/13/21 01:33 Salicylates < 0.3 mg/dL (2.8-20.0) L 07/12/21 20:38 Urine Opiates Screen Presumptive negative 07/13/21 01:33 Urine Methadone Screen Presumptive negative 07/13/21 01:33 Acetaminophen 5.0 ug/mL (10.0-30.0) L 07/12/21 20:38 Ur Barbiturates Screen Presumptive negative 07/13/21 01:33 Ur Phencyclidine Scrn Presumptive negative 07/13/21 01:33 Ur Amphetamines Screen Presumptive negative 07/13/21 01:33 U Benzodiazepines Scrn Presumptive negative 07/13/21 01:33 Urine Cocaine Screen Presumptive negative 07/13/21 01:33 U Marijuana (THC) Screen Presumptive negative 07/13/21 01:33 Drugs of Abuse Note Disclamer 07/13/21 01:33 Plasma/Serum Alcohol < 0.01 % (0-0.07) 07/12/21 20:38 Coronavirus (PCR) Positive (Negative) A 07/13/21 Unknown Blood Type A POSITIVE 07/12/21 20:38 Antibody Screen Negative 07/12/21 20:38 Microbiology: Microbiology 07/12/21 20:38 Peripheral/Venous Blood Culture - Preliminary Culture in Progress 07/12/21 20:38 Peripheral/Venous Blood Culture - Preliminary Culture in Progress Active Medications - Current Medications Current Medications: Generic Name Dose Route Start Last Admin Trade Name Freq PRN Reason Stop Dose Admin Acetaminophen 650 mg 07/12/21 22:08 Acetaminophen 325 Mg Tab PO Q4H PRN Pain MILD(1-3)/Fever >100.5/YOUNGBLOOD Albuterol 2.5 mg 07/12/21 22:08 Albuterol 2.5 Mg/3 Ml Nebu IH Q4HRT PRN Shortness Of Breath Albuterol/Ipratropium 1 ampul 07/13/21 02:00 Ipratropium/Albuterol Sulfate 3 Ml Ampul.Neb IH Q6HRT JESUS Dexamethasone 6 mg 07/13/21 10:00 07/13/21 13:09 Dexamethasone 4 Mg/Ml Vial IV 6 mg DAILY JESUS Administration Dextrose 0 ml 07/12/21 21:25 Dextrose 50% In Water (25gm) 50 Ml Syringe IV Q30MIN PRN Hypoglycemia Protocol Famotidine 20 mg 07/13/21 10:00 07/13/21 13:09 Famotidine 20 Mg/2 Ml Inj IV 20 mg BID JESUS Administration Heparin Protocol 1 each 07/13/21 21:08 Heparin No Bolus IV 07/13/21 21:09 ONCE ONE Heparin Sodium (Porcine) 3,700 unit 07/13/21 21:08 Heparin 10,000 Units/10 Ml Vial 40 unit/kg (3700 unit) 07/13/21 21:09 IV ONCE ONE Heparin Sodium (Porcine) 3,700 unit 07/13/21 21:08 Heparin 10,000 Units/10 Ml Vial 40 unit/kg (3700 unit) IV Q6H PRN Anti-Xa Assay < 0.1 units/ml Hydralazine HCl 10 mg 07/13/21 21:05 Hydralazine 20 Mg/1 Ml Inj IV Q4H PRN Hypertension Hydromorphone HCl 0.5 mg 07/12/21 22:08 Hydromorphone 1 Mg/1 Ml Inj IV Q3H PRN Pain , Severe (7-10) Potassium Chloride/Dextrose/Sod Cl 20 meq in 1,000 mls @ 125 mls/hr 07/12/21 22:00 07/13/21 17:13 D5w/0.45% Nacl/Kcl 20 Meq IV 125 mls/hr DIRECT JESUS Administration Insulin Human Regular 100 100 mls @ 1 mls/hr 07/12/21 23:00 07/13/21 20:38 units/ Sodium Chloride IV 4 units/hr TITR JESUS 4 mls/hr Administration Protocol 1 UNITS/HR Azithromycin 500 mg in 250 mls @ 250 mls/hr 07/12/21 23:00 07/13/21 16:09 Zithromax/Ns IV 250 mls/hr Q24HR JESUS Administration Protocol Ceftriaxone Sodium 2 gm in 100 mls @ 200 mls/hr 07/12/21 23:15 07/13/21 13:08 Rocephin/Ns 2 Gm/100 Ml IV 200 mls/hr Q24HR JESUS Administration Protocol Heparin Sodium/Sodium Chloride 25,000 unit in 500 mls @ 27 mls/hr 07/13/21 22:00 Heparin/ 0.45% Nacl-25,000 Unit/500 Ml IV TITR JESUS Protocol 1,350 UNITS/HR Sodium Chloride 1,000 mls @ 999 mls/hr 07/13/21 21:10 Nacl 0.9% 1000 Ml IV 07/13/21 22:10 BOLUS ONE Ondansetron HCl 4 mg 07/12/21 22:08 Ondansetron 4 Mg/2 Ml Inj IV Q8H PRN Nausea And Vomiting Oxycodone/Acetaminophen 1 tab 07/12/21 22:08 Oxycodone /Acetaminophen 5-325mg Tab PO Q6H PRN Pain, Moderate (4-6) Sodium Chloride 10 ml 07/13/21 10:00 Sodium Chloride 0.9% 10 Ml Flush Syringe IV BID JESUS Sodium Chloride 10 ml 07/12/21 22:08 Sodium Chloride 0.9% 10 Ml Flush Syringe IV PRN PRN LINE FLUSH Nutrition/Malnutrition Assess - Dietary Evaluation Nutrition/Malnutrition Findings: Nutrition Notes Start: 07/13/21 10:12 Freq: Status: Active Protocol: Document 07/13/21 10:12 CHIQUITA (Rec: 07/13/21 10:15 CHIQUITA [id number]) Nutrition Notes Need for Assessment generated from: MD Order,Education Initial or Follow up Brief Note Current Diagnosis Diabetes Other Pertinent Diagnosis DKA Current Diet NPO Subjective/Other Information RD consulted for diet education. Pt in ED at this time. Nutrition Intervention Follow-Up By: 07/16/21 Additional Comments F/U: diet education needs, transfer to medical floor <SARAH MADSEN - Last Filed: 07/14/21 07:38> Assessment and Plan Assessment and plan: I saw and evaluated the patient. Discussed with the nurse practitioner and agree with their findings and plan as documented in this note. Hospitalist Physical - Constitutional Vitals: Temp Pulse Resp BP Pulse Ox 98.7 F 120 H 29 H 123/99 88 07/13/21 22:50 07/14/21 06:00 07/14/21 06:00 07/14/21 06:00 07/14/21 06:00 HEART Score - HEART Score Troponin: Troponin T < 0.010 ng/mL (0.00-0.029) 07/12/21 20:38 Results - Labs CBC & Chem 7: 07/14/21 05:30 07/14/21 05:30 Labs: Laboratory Last Values WBC 11.9 K/mm3 (4.5-11.0) H 07/14/21 05:30 RBC 4.41 M/mm3 (3.65-5.03) 07/14/21 05:30 Hgb 12.8 gm/dl (11.8-15.2) 07/14/21 05:30 Hct 38.7 % (35.5-45.6) 07/14/21 05:30 MCV 88 fl (84-94) 07/14/21 05:30 MCH 29 pg (28-32) 07/14/21 05:30 MCHC 33 % (32-34) 07/14/21 05:30 RDW 13.7 % (13.2-15.2) 07/14/21 05:30 Plt Count 142 K/mm3 (140-440) 07/14/21 05:30 Add Manual Diff Complete 07/13/21 05:18 Total Counted 100 07/13/21 05:18 Seg Neutrophils % Dinkey [employer] Firer 07/13/21 05:18 Seg Neuts % (Manual) 86.0 % (40.0-70.0) H 07/13/21 05:18 Band Neutrophils % 9.0 % 07/13/21 05:18 Lymphocytes % (Manual) 4.0 % (13.4-35.0) L 07/13/21 05:18 Monocytes % (Manual) 3.0 % (0.0-7.3) 07/12/21 20:38 Myelocytes % 1.0 % 07/13/21 05:18 Nucleated RBC % Not Reportable 07/13/21 05:18 Seg Neutrophils # Man 12.1 K/mm3 (1.8-7.7) H 07/13/21 05:18 Band Neutrophils # 1.3 K/mm3 07/13/21 05:18 Lymphocytes # (Manual) 0.6 K/mm3 (1.2-5.4) L 07/13/21 05:18 Abs React Lymphs (Man) 0.0 K/mm3 07/13/21 05:18 Monocytes # (Manual) 0.0 K/mm3 (0.0-0.8) 07/13/21 05:18 Eosinophils # (Manual) 0.0 K/mm3 (0.0-0.4) 07/13/21 05:18 Basophils # (Manual) 0.0 K/mm3 (0.0-0.1) 07/13/21 05:18 Metamyelocytes # 0.0 K/mm3 07/13/21 05:18 Myelocytes # 0.1 K/mm3 07/13/21 05:18 Promyelocytes # 0.0 K/mm3 07/13/21 05:18 Blast Cells # 0.0 K/mm3 07/13/21 05:18 WBC Morphology Not Reportable 07/13/21 05:18 Hypersegmented Neuts Not Reportable 07/13/21 05:18 Hyposegmented Neuts Not Reportable 07/13/21 05:18 Hypogranular Neuts Not Reportable 07/13/21 05:18 Smudge Cells Not Reportable 07/13/21 05:18 Toxic Granulation Not Reportable 07/13/21 05:18 Toxic Vacuolation Not Reportable 07/13/21 05:18 Dohle Bodies Not Reportable 07/13/21 05:18 Pelger-Huet Anomaly Not Reportable 07/13/21 05:18 Isha Rods Not Reportable 07/13/21 05:18 Platelet Estimate Consistent w auto 07/13/21 05:18 Clumped Platelets Not Reportable 07/13/21 05:18 Plt Clumps, EDTA Not Reportable 07/13/21 05:18 Large Platelets Not Reportable 07/13/21 05:18 Giant Platelets Not Reportable 07/13/21 05:18 Platelet Satelliting Not Reportable 07/13/21 05:18 Plt Morphology Comment Not Reportable 07/13/21 05:18 RBC Morphology Normal 07/13/21 05:18 Dimorphic RBCs Not Reportable 07/13/21 05:18 Polychromasia Not Reportable 07/13/21 05:18 Hypochromasia Not Reportable 07/13/21 05:18 Poikilocytosis Not Reportable 07/13/21 05:18 Anisocytosis Not Reportable 07/13/21 05:18 Microcytosis Not Reportable 07/13/21 05:18 Macrocytosis Not Reportable 07/13/21 05:18 Spherocytes Not Reportable 07/13/21 05:18 Pappenheimer Bodies Not Reportable 07/13/21 05:18 Sickle Cells Not Reportable 07/13/21 05:18 Target Cells Not Reportable 07/13/21 05:18 Tear Drop Cells Not Reportable 07/13/21 05:18 Ovalocytes Not Reportable 07/13/21 05:18 Helmet Cells Not Reportable 07/13/21 05:[address] Nicole-[place] Bodies Not Reportable 07/13/21 05:18 [place] Rings Not Reportable 07/13/21 05:18 [place] Cells Not Reportable 07/13/21 05:18 Bite Cells Not Reportable 07/13/21 05:18 Crenated Cell Not Reportable 07/13/21 05:18 Elliptocytes Not Reportable 07/13/21 05:18 Acanthocytes (Spur) Not Reportable 07/13/21 05:18 Rouleaux Not Reportable 07/13/21 05:18 Hemoglobin C Crystals Not Reportable 07/13/21 05:18 Schistocytes Not Reportable 07/13/21 05:18 Malaria parasites Not Reportable 07/13/21 05:18 Jonn Bodies Not Reportable 07/13/21 05:18 Hem Pathologist Commnt No 07/13/21 05:18 PT 17.1 Sec. (12.2-14.9) H 07/13/21 23:57 INR 1.34 (0.87-1.13) H 07/13/21 23:57 APTT 60.0 Sec. (24.2-36.6) H 07/13/21 23:57 D-Dimer > 59912 ng/mlDDU (0-234) H 07/13/21 23:57 VBG pH 7.170 (7.320-7.420) L* 07/12/21 20:38 Sodium 155 mmol/L (137-145) H 07/14/21 05:30 Potassium 4.0 mmol/L (3.6-5.0) 07/14/21 05:30 Chloride 122.4 mmol/L (98-107) H 07/14/21 05:30 Carbon Dioxide 21 mmol/L (22-30) L 07/14/21 05:30 Anion Gap 16 mmol/L 07/14/21 05:30 BUN 29 mg/dL (9-20) H 07/14/21 05:30 Creatinine 1.1 mg/dL (0.8-1.3) 07/14/21 05:30 Estimated GFR > 60 ml/min 07/14/21 05:30 BUN/Creatinine Ratio 26 % 07/14/21 05:30 Glucose 228 mg/dL (75-100) H 07/14/21 05:30 POC Glucose 153 mg/dL (70-105) H 07/14/21 00:54 Hemoglobin A1c 16.5 % (4-6) H 07/14/21 05:30 Ketones Quantitative Moderate (Negative) 07/12/21 20:38 Lactic Acid 1.90 mmol/L (0.7-2.0) 07/12/21 20:38 Calcium 8.2 mg/dL (8.4-10.2) L 07/14/21 05:30 Phosphorus 6.00 mg/dL (2.5-4.5) H 07/12/21 23:14 Magnesium 3.00 mg/dL (1.7-2.3) H 07/12/21 23:14 Ferritin 3041.0 ng/mL (30.0-300.0) H 07/13/21 23:57 Total Bilirubin 0.30 mg/dL (0.1-1.2) 07/12/21 20:38 AST 22 units/L (5-40) 07/12/21 20:38 ALT 13 units/L (7-56) 07/12/21 20:38 Alkaline Phosphatase 109 units/L (35-129) 07/12/21 20:38 Ammonia 45.0 umol/L (25-60) 07/12/21 20:38 Lactate Dehydrogenase 842 units/L (91-180) H 07/13/21 23:57 Total Creatine Kinase 372 units/L (55-170) H 07/12/21 20:38 Troponin T < 0.010 ng/mL (0.00-0.029) 07/12/21 20:38 C-Reactive Protein 6.30 mg/dL (0.00-1.30) H 07/13/21 23:57 Total Protein 7.0 g/dL (6.3-8.2) 07/12/21 20:38 Albumin 3.2 g/dL (3.9-5) L 07/12/21 20:38 Albumin/Globulin Ratio 0.8 % 07/12/21 20:38 TSH 0.819 mlU/mL (0.270-4.200) 07/12/21 20:38 Urine Color Straw (Yellow) 07/13/21 01:33 Urine Turbidity Clear (Clear) 07/13/21 01:33 Urine pH 5.0 (5.0-7.0) 07/13/21 01:33 Ur Specific Nunda 1.025 (1.003-1.030) 07/13/21 01:33 Urine Protein 30 mg/dl mg/dL (Negative) 07/13/21 01:33 Urine Glucose (UA) >=500 mg/dL (Negative) 07/13/21 01:33 Urine Ketones 80 mg/dL (Negative) 07/13/21 01:33 Urine Blood Mod (Negative) 07/13/21 01:33 Urine Nitrite Neg (Negative) 07/13/21 01:33 Urine Bilirubin Neg (Negative) 07/13/21 01:33 Urine Urobilinogen < 2.0 mg/dL (<2.0) 07/13/21 01:33 Ur Leukocyte Esterase Neg (Negative) 07/13/21 01:33 Urine WBC (Auto) < 1.0 /HPF (0.0-6.0) 07/13/21 01:33 Urine RBC (Auto) 1.0 /HPF (0.0-6.0) 07/13/21 01:33 U Epithel Cells (Auto) < 1.0 /HPF (0-13.0) 07/13/21 01:33 Hyaline Casts 1 /LPF 07/13/21 01:33 Urine Mucus Few /HPF 07/13/21 01:33 Salicylates < 0.3 mg/dL (2.8-20.0) L 07/12/21 20:38 Urine Opiates Screen Presumptive negative 07/13/21 01:33 Urine Methadone Screen Presumptive negative 07/13/21 01:33 Acetaminophen 5.0 ug/mL (10.0-30.0) L 07/12/21 20:38 Ur Barbiturates Screen Presumptive negative 07/13/21 01:33 Ur Phencyclidine Scrn Presumptive negative 07/13/21 01:33 Ur Amphetamines Screen Presumptive negative 07/13/21 01:33 U Benzodiazepines Scrn Presumptive negative 07/13/21 01:33 Urine Cocaine Screen Presumptive negative 07/13/21 01:33 U Marijuana (THC) Screen Presumptive negative 07/13/21 01:33 Drugs of Abuse Note Disclamer 07/13/21 01:33 Plasma/Serum Alcohol < 0.01 % (0-0.07) 07/12/21 20:38 Coronavirus (PCR) Positive (Negative) A 07/13/21 Unknown Blood Type A POSITIVE 07/12/21 20:38 Antibody Screen Negative 07/12/21 20:38 Microbiology: Microbiology 07/12/21 20:38 Peripheral/Venous Blood Culture - Preliminary NO GROWTH AFTER 24 HOURS 07/12/21 20:38 Peripheral/Venous Blood Culture - Preliminary NO GROWTH AFTER 24 HOURS Active Medications - Current Medications Current Medications: Generic Name Dose Route Start Last Admin Trade Name Freq PRN Reason Stop Dose Admin Acetaminophen 650 mg 07/12/21 22:08 Acetaminophen 325 Mg Tab PO Q4H PRN Pain MILD(1-3)/Fever >100.5/[facility] Albuterol 2.5 mg 07/12/21 22:08 Albuterol 2.5 Mg/3 Ml Nebu IH Q4HRT PRN Shortness Of Breath Albuterol/Ipratropium 1 ampul 07/13/21 02:00 07/14/21 02:04 Ipratropium/Albuterol Sulfate 3 Ml Ampul.Neb IH Not Given Q6HRT JESUS Dexamethasone 6 mg 07/13/21 10:00 07/13/21 13:09 Dexamethasone 4 Mg/Ml Vial IV 6 mg DAILY JESUS Administration Dextrose 50 ml 07/14/21 07:19 Dextrose 50% In Water (25gm) 50 Ml Syringe IV Q30MIN PRN Hypoglycemia Protocol Dextrose 50 ml 07/14/21 07:19 Dextrose 50% In Water (25gm) 50 Ml Syringe IV Q30MIN PRN Hypoglycemia Protocol Docusate Sodium 100 mg 07/13/21 22:00 07/14/21 01:04 Docusate Sodium 100 Mg/10 Ml Oral Liqd PO 100 mg BID JESUS Administration Famotidine 20 mg 07/13/21 10:00 07/14/21 01:20 Famotidine 20 Mg/2 Ml Inj IV 20 mg BID JESUS Administration Heparin Sodium (Porcine) 3,700 unit 07/13/21 21:08 Heparin 10,000 Units/10 Ml Vial 40 unit/kg (3700 unit) IV Q6H PRN Anti-Xa Assay < 0.1 units/ml Hydralazine HCl 10 mg 07/13/21 21:05 Hydralazine 20 Mg/1 Ml Inj IV Q4H PRN Hypertension Hydromorphone HCl 0.5 mg 07/12/21 22:08 Hydromorphone 1 Mg/1 Ml Inj IV Q3H PRN Pain , Severe (7-10) Potassium Chloride/Dextrose/Sod Cl 20 meq in 1,000 mls @ 125 mls/hr 07/12/21 22:00 07/13/21 17:13 D5w/0.45% Nacl/Kcl 20 Meq IV 125 mls/hr DIRECT JESUS Administration Azithromycin 500 mg in 250 mls @ 250 mls/hr 07/12/21 23:00 07/13/21 16:09 Zithromax/Ns IV 250 mls/hr Q24HR JESUS Administration Protocol Ceftriaxone Sodium 2 gm in 100 mls @ 200 mls/hr 07/12/21 23:15 07/13/21 13:08 Rocephin/Ns 2 Gm/100 Ml IV 200 mls/hr Q24HR JESUS Administration Protocol Heparin Sodium/Sodium Chloride 25,000 unit in 500 mls @ 27 mls/hr 07/13/21 22:00 Heparin/ 0.45% Nacl-25,000 Unit/500 Ml IV TITR JESUS Protocol 1,350 UNITS/HR Insulin Human Isoph/Insulin Regular 45 unit 07/14/21 08:00 Insulin Nph/Regular 70/30 Inj SUB-Q QDDIAB JESUS Insulin Human Isoph/Insulin Regular 15 unit 07/14/21 17:00 Insulin Nph/Regular 70/30 Inj SUB-Q QPMDIAB JESUS Insulin Human Lispro 0 unit 07/14/21 07:30 Insulin Lispro 100 Unit/Ml SUB-Q ACHS JESUS Protocol Ondansetron HCl 4 mg 07/12/21 22:08 Ondansetron 4 Mg/2 Ml Inj IV Q8H PRN Nausea And Vomiting Oxycodone/Acetaminophen 1 tab 07/12/21 22:08 Oxycodone /Acetaminophen 5-325mg Tab PO Q6H PRN Pain, Moderate (4-6) Sodium Chloride 10 ml 07/13/21 10:00 07/13/21 22:29 Sodium Chloride 0.9% 10 Ml Flush Syringe IV 10 ml BID JESUS Administration Sodium Chloride 10 ml 07/12/21 22:08 Sodium Chloride 0.9% 10 Ml Flush Syringe IV PRN PRN LINE FLUSH Nutrition/Malnutrition Assess - Dietary Evaluation Nutrition/Malnutrition Findings: Nutrition Notes Start: 07/13/21 10:12 Freq: Status: Active Protocol: Document 07/13/21 10:12 CHIQUITA (Rec: 07/13/21 10:15 [email or web address] [id number]) Nutrition Notes Need for Assessment generated from: MD Order,Education Initial or Follow up Brief Note Current Diagnosis Diabetes Other Pertinent Diagnosis DKA Current Diet NPO Subjective/Other Information RD consulted for diet education. Pt in ED at this time. Nutrition Intervention Follow-Up By: 07/16/21 Additional Comments F/U: diet education needs, transfer to medical floor
[2021-07-13] MEDS ORDERED: HEPARIN 10,000 UNITS/10 ML VIAL IV ONE (21:38)
[2021-07-13] MEDS ORDERED: HEPARIN/ 0.45% NACL DRIP 25,000 UNIT/500 ML BAG IV SCH (22:00)
[2021-07-14] MEDS: DOCUSATE SODIUM 100 MG/10 ML ORAL LIQD PO SCH ×3 (01:04→22:25)
[2021-07-14 01:14] LABS: Hematocrit 40.2 % (35.5-45.6); Hemoglobin 13.3 gm/dl (11.8-15.2)
[2021-07-14 01:20] LABS: BUN/Creatinine Ratio 28; Blood Urea Nitrogen 31 mg/dL (9-20); Calcium 8.4 mg/dL (8.4-10.2); Hemolysis Index 8
[2021-07-14] MEDS: FAMOTIDINE 20 MG/2 ML INJ IV SCH ×3 (01:20→22:32)
[2021-07-14 01:28] LABS: INR 1.34 (0.87-1.13)
[2021-07-14] MEDS: IPRATROPIUM/ALBUTEROL SULFATE 3 ML AMPUL.NEB IH SCH ×5 (02:03→22:47)
[2021-07-14 06:20] LABS: C-Reactive Protein 6.3 mg/dL (0.00-1.30)
[2021-07-14 06:29] LABS: Hematocrit 38.7 % (35.5-45.6); Hemoglobin 12.8 gm/dl (11.8-15.2); Mean Corpuscular HGB Conc 33 % (32-34); Mean Corpuscular Volume 88 fl (84-94); Platelet Count 142 K/mm3 (140-440); Red Blood Count 4.41 M/mm3 (3.65-5.03); Red Cell Distribution Width 13.7 % (13.2-15.2)
[2021-07-14 06:33] LABS: BUN/Creatinine Ratio 26; Blood Urea Nitrogen 29 mg/dL (9-20); Calcium 8.2 mg/dL (8.4-10.2); Hemolysis Index 13
[2021-07-14] MEDS ORDERED: DEXTROSE 50% IN WATER (25GM) 50 ML SYRINGE IV PRN (07:19)
[2021-07-14] MEDS ORDERED: INSULIN NPH/REGULAR 70/30 INJ SUB-Q SCH ×2 (08:00→17:00)
[2021-07-14] MEDS: INSULIN LISPRO 100 UNIT/ML SUB-Q SCH ×4 (08:49→22:47)
[2021-07-14] MEDS: INSULIN NPH/REGULAR 70/30 INJ SUB-Q SCH ×2 (09:02→18:45)
--- NOTE | 2021-07-14 09:53 | XRay Report ---
CHEST 1 VIEW INDICATION / CLINICAL INFORMATION: hypoxia STUDY TIME: 920 COMPARISON: 07/12/2021 FINDINGS: SUPPORT DEVICES: None HEART / MEDIASTINUM: Stable LUNGS / PLEURA: Patchy pneumonic type infiltrate has developed in the right lung, particularly the mi d to lower lung field, and mildly in the left mid lower lung field. No pneumothorax. ADDITIONAL FINDINGS: No significant additional findings. Signer Name: Aj Bustamante MD Signed: 07/14/2021 9:49 AM Workstation Name: [id number]
[2021-07-14] MEDS ORDERED: REMDESIVIR 200 MG in SODIUM CHLORIDE 0.9% 250ML 250 ML IV ONE (10:00)
[2021-07-14] MEDS ORDERED: FUROSEMIDE 40 MG/4 ML INJ IV ONE (10:00)
[2021-07-14] MEDS: SODIUM CHLORIDE 0.9% 50 ML IVPB IV SCH (10:03)
[2021-07-14] MEDS: AZITHROMYCIN/NS 500 MG/250 ML 500 MG/250 ML BAG IV SCH (10:10)
[2021-07-14] MEDS: cefTRIAXone/NS 2 GM/100 ML 2 GM/100 ML BAG IV SCH (10:11)
[2021-07-14] MEDS: dexAMETHasone 4 MG/ML VIAL IV SCH (10:11)
[2021-07-14] MEDS: DEXTROSE 5% IN WATER 1,000 ML IV SCH (10:13)
[2021-07-14 11:16] LABS: Alanine Aminotransferase 17 units/L (7-56); Albumin 2.7 g/dL (3.9-5); BUN/Creatinine Ratio 28; Blood Urea Nitrogen 28 mg/dL (9-20); Calcium 8.9 mg/dL (8.4-10.2); Hemolysis Index 7
[2021-07-14] MEDS: ENOXAPARIN 100 MG/1 ML INJ SUB-Q SCH ×2 (11:31→22:31)
--- NOTE | 2021-07-14 12:59 | Event Note ---
Date: 07/14/21 Patient now with acute respiratory failure, COVID positive with diabetes. Needs steroids, Remdesivir. ID consulted. Wean FiO2 as tolerated for sats >88%. Proning is a must. Guarded prognosis.
--- NOTE | 2021-07-14 13:04 | Progress Note ---
Assessment and Plan Cultures: SARS CoV2 PCR: Positive 07/12/2021 blood culture: No growth A/P: 66/M with diabetes admitted with DKA: #COVID-19 pneumonia: D-dimer >10,000, , CRP 6.3, ferritin 3041, LDH 842 #Acute hypoxic respiratory failure: Secondary to COVID-19 #Acute DKA, uncontrolled DM: HbA1c 16.5 #Acute encephalopathy Recs: IV remdesivir initiated Continue steroids Follow-up procalcitonin, if low, discontinue antibiotics monitor markers, does not meet criteria for Actdolores Barron MD, FACP [facility] ([facility] O: [phone] F: [phone] Subjective Date of service: 07/14/21 Interval history: Afebrile, hypoxic. COVID-19 test is positive. Labs from today show WBC 11.9, D-dimer >10,000, HbA1c 16.5, CRP 6.3, ferritin 3041, LDH 842 Objective - Exam Narrative Exam: Physical Exam (reviewed in chart to minimize risk of transmission) Constitutional: deferred Head, Ears, Nose: deferred Eyes: deferred Neck: deferred Oral: deferred Cardiovascular: deferred Respiratory: deferred GI: deferred Musculoskeletal: deferred Skin: deferred Hem/Lymphatic: deferred Psych: deferred Neurological: deferred - Constitutional Vitals: Vital Signs Temp Pulse Resp BP Pulse Ox 98.7 F 120 H 29 H 123/99 91 07/13/21 22:50 07/14/21 06:00 07/14/21 06:00 07/14/21 06:00 07/14/21 10:00 Temperature -Last 24 Hours Temperature 98.7 F Temperature 98.1 F - Labs CBC & Chem 7: 07/14/21 05:30 07/14/21 10:38 Labs: Abnormal lab results 07/13/21 07/13/21 07/13/21 Range/Units 05:18 15:59 16:18 WBC (4.5-11.0) K/mm3 Seg Neuts % (Manual) 86.0 H (40.0-70.0) % Lymphocytes % (Manual) 4.0 L (13.4-35.0) % Seg Neutrophils # Man 12.1 H (1.8-7.7) K/mm3 Lymphocytes # (Manual) 0.6 L (1.2-5.4) K/mm3 PT (12.2-14.9) Sec. INR (0.87-1.13) APTT (24.2-36.6) Sec. D-Dimer (0-234) ng/mlDDU Sodium 152 H (137-145) mmol/L Chloride 119.9 H (98-107) mmol/L Carbon Dioxide 21 L (22-30) mmol/L BUN 35 H (9-20) mg/dL Glucose 183 H (75-100) mg/dL POC Glucose 204 H (70-105) mg/dL Hemoglobin A1c (4-6) % Calcium (8.4-10.2) mg/dL Ferritin (30.0-300.0) ng/mL AST (5-40) units/L Lactate Dehydrogenase (91-180) units/L C-Reactive Protein (0.00-1.30) mg/dL Total Protein (6.3-8.2) g/dL Albumin (3.9-5) g/dL Coronavirus (PCR) (Negative) 07/13/21 07/13/21 07/13/21 Range/Units 19:32 22:19 23:57 WBC (4.5-11.0) K/mm3 Seg Neuts % (Manual) (40.0-70.0) % Lymphocytes % (Manual) (13.4-35.0) % Seg Neutrophils # Man (1.8-7.7) K/mm3 Lymphocytes # (Manual) (1.2-5.4) K/mm3 PT (12.2-14.9) Sec. INR (0.87-1.13) APTT (24.2-36.6) Sec. D-Dimer (0-234) ng/mlDDU Sodium 156 H (137-145) mmol/L Chloride 122.6 H (98-107) mmol/L Carbon Dioxide (22-30) mmol/L BUN 31 H (9-20) mg/dL Glucose 121 H (75-100) mg/dL POC Glucose 181 H 119 H (70-105) mg/dL Hemoglobin A1c (4-6) % Calcium (8.4-10.2) mg/dL Ferritin (30.0-300.0) ng/mL AST (5-40) units/L Lactate Dehydrogenase (91-180) units/L C-Reactive Protein (0.00-1.30) mg/dL Total Protein (6.3-8.2) g/dL Albumin (3.9-5) g/dL Coronavirus (PCR) (Negative) 07/13/21 07/13/21 07/13/21 Range/Units 23:57 23:57 23:57 WBC (4.5-11.0) K/mm3 Seg Neuts % (Manual) (40.0-70.0) % Lymphocytes % (Manual) (13.4-35.0) % Seg Neutrophils # Man (1.8-7.7) K/mm3 Lymphocytes # (Manual) (1.2-5.4) K/mm3 PT 17.1 H (12.2-14.9) Sec. INR 1.34 H (0.87-1.13) APTT 60.0 H (24.2-36.6) Sec. D-Dimer > 76193 H (0-234) ng/mlDDU Sodium (137-145) mmol/L Chloride (98-107) mmol/L Carbon Dioxide (22-30) mmol/L BUN (9-20) mg/dL Glucose (75-100) mg/dL POC Glucose (70-105) mg/dL Hemoglobin A1c (4-6) % Calcium (8.4-10.2) mg/dL Ferritin 3041.0 H (30.0-300.0) ng/mL AST (5-40) units/L Lactate Dehydrogenase 842 H (91-180) units/L C-Reactive Protein 6.30 H (0.00-1.30) mg/dL Total Protein (6.3-8.2) g/dL Albumin (3.9-5) g/dL Coronavirus (PCR) (Negative) 07/13/21 07/14/21 07/14/21 Range/Units Unknown 00:54 05:30 WBC 11.9 H (4.5-11.0) K/mm3 Seg Neuts % (Manual) (40.0-70.0) % Lymphocytes % (Manual) (13.4-35.0) % Seg Neutrophils # Man (1.8-7.7) K/mm3 Lymphocytes # (Manual) (1.2-5.4) K/mm3 PT (12.2-14.9) Sec. INR (0.87-1.13) APTT (24.2-36.6) Sec. D-Dimer (0-234) ng/mlDDU Sodium (137-145) mmol/L Chloride (98-107) mmol/L Carbon Dioxide (22-30) mmol/L BUN (9-20) mg/dL Glucose (75-100) mg/dL POC Glucose 153 H (70-105) mg/dL Hemoglobin A1c (4-6) % Calcium (8.4-10.2) mg/dL Ferritin (30.0-300.0) ng/mL AST (5-40) units/L Lactate Dehydrogenase (91-180) units/L C-Reactive Protein (0.00-1.30) mg/dL Total Protein (6.3-8.2) g/dL Albumin (3.9-5) g/dL Coronavirus (PCR) Positive A (Negative) 07/14/21 07/14/21 07/14/21 Range/Units 05:30 05:30 08:37 WBC (4.5-11.0) K/mm3 Seg Neuts % (Manual) (40.0-70.0) % Lymphocytes % (Manual) (13.4-35.0) % Seg Neutrophils # Man (1.8-7.7) K/mm3 Lymphocytes # (Manual) (1.2-5.4) K/mm3 PT (12.2-14.9) Sec. INR (0.87-1.13) APTT (24.2-36.6) Sec. D-Dimer (0-234) ng/mlDDU Sodium 155 H (137-145) mmol/L Chloride 122.4 H (98-107) mmol/L Carbon Dioxide 21 L (22-30) mmol/L BUN 29 H (9-20) mg/dL Glucose 228 H (75-100) mg/dL POC Glucose 155 H (70-105) mg/dL Hemoglobin A1c 16.5 H (4-6) % Calcium 8.2 L (8.4-10.2) mg/dL Ferritin (30.0-300.0) ng/mL AST (5-40) units/L Lactate Dehydrogenase (91-180) units/L C-Reactive Protein (0.00-1.30) mg/dL Total Protein (6.3-8.2) g/dL Albumin (3.9-5) g/dL Coronavirus (PCR) (Negative) 07/14/21 Range/Units 10:38 WBC (4.5-11.0) K/mm3 Seg Neuts % (Manual) (40.0-70.0) % Lymphocytes % (Manual) (13.4-35.0) % Seg Neutrophils # Man (1.8-7.7) K/mm3 Lymphocytes # (Manual) (1.2-5.4) K/mm3 PT (12.2-14.9) Sec. INR (0.87-1.13) APTT (24.2-36.6) Sec. D-Dimer (0-234) ng/mlDDU Sodium 156 H (137-145) mmol/L Chloride 124.2 H (98-107) mmol/L Carbon Dioxide (22-30) mmol/L BUN 28 H (9-20) mg/dL Glucose 172 H (75-100) mg/dL POC Glucose (70-105) mg/dL Hemoglobin A1c (4-6) % Calcium (8.4-10.2) mg/dL Ferritin (30.0-300.0) ng/mL AST 50 H (5-40) units/L Lactate Dehydrogenase (91-180) units/L C-Reactive Protein (0.00-1.30) mg/dL Total Protein 5.5 L D (6.3-8.2) g/dL Albumin 2.7 L (3.9-5) g/dL Coronavirus (PCR) (Negative)
--- NOTE | 2021-07-14 17:06 | Progress Note ---
<MELISSALIVIA BritneySreg - Last Filed: 07/14/21 17:16> Assessment and Plan Assessment and plan: This 66-year-old male with DM admitted as a COVID-19 PUI with DKA Neuro: Acute metabolic encephalopathy -07/09 CT head-> see results -Avoid delirium -Aspiration/fall precautions -Neuro consulted, appreciate recommendations -MRI brain and MRA brain pending Cardio: ST -Blood Pressure monitoring per protocol -As needed hydralazine -Echo pending Respiratory: Rule out PE, acute hypoxic respiratory failure -Patient is on nonrebreather with optiflow -CCM consulted, appreciate recs -CTA chest pending -Supplemental oxygen as needed -Pulmonary hygiene GI: N.p.o. -Patient was transitioned to cc diet but remains NPO as he is on NRB with optiflow -BR: Colace -PPI : LUIS M 2/2 vasomotor nephropathy (resolving), hypernatremia, hyper chloremia, metabolic acidosis, -Presented with a BUN/creatinine 1.5/50 but now trending down -Strict intake and output -Renally dose medications -Avoid nephrotoxic medication -Consider nephrology work-up if worsening Heme: Leukocytosis, DVT -BLE Dopplar US shows acute occlusive DVT noted in the posterior tibial vein and peroneal vein -Started on heparin drip but now switched to lovenox -SCDs to bilateral LE while in bed -Trend CBC Endo: s/p DKA, h/o DM (noncompliant per family) -s/p DKA protocol -Hemaglobin A1C 16.5 -CC diet when appropriate -avoid hypoglycemia -SSI with long acting insulin ID: COVID-19 PNA -COVID-19 PCR positive -Infectious disease consulted, appreciate recommendations -Currently on empiric antibiotics -Patient started on dexamethasone (07/13-07/22) -Redesivir (07/14-07/18) -Isolation/droplet precautions -Prone as tolerated -Trend COVID-19 inflammatory markers -Anticoagulation per protocol -Pulmonary hygiene -SPO2 monitoring -Follow culture data -Prone as tolerated The high probability of a clinically significant, sudden or life threatening deterioration of the [pulm,ID,endo] system(s) required my full and direct attention, intervention and personal management. The aggregate critical care time was [60] minutes. This time is in addition to time spent performing reported procedures but includes the following: [x] Data Review and interpretation [x] Patient assessment and monitoring of vital signs [x] Documentation [x] Medication orders and management Disposition Plan: icu Total Time Spent with Patient (Minutes): 60 History Interval history: This is 66-year-old male with DM presented to emergency department because of high blood sugar and generalized weakness. Work-up in the emergency department showed lab work consistent with DKA, CT head scan of head shows no acute intracranial abnormality. Patient was also made a COVID-19 PUI 07/13: Patient's COVID-19 PCR resulted as positive, remains on insulin drip as anion gap has not closed, CTA chest ordered. Heparin gtt, DVT on BLE dopplar US 07/14: Echo ordered for today, started on remdisivir, unable to complete CTA chest or MRI brain as pt is in optiflow with nrb in place. Daughter Nancy Francisco update over the phone today by livia hester np Hospitalist Physical - Constitutional Vitals: Temp Pulse Resp BP Pulse Ox 98.7 F 120 H 29 H 123/99 91 07/13/21 22:50 07/14/21 06:00 07/14/21 06:00 07/14/21 06:00 07/14/21 10:00 General appearance: Present: mild distress, well-nourished, obese - EENT Eyes: Present: PERRL, EOM intact ENT: hearing intact, clear oral mucosa - Neck Neck: Present: supple, normal ROM - Respiratory Respiratory effort: normal Respiratory: bilateral: diminished - Cardiovascular Rhythm: regular Heart Sounds: Present: S1 & S2. Absent: systolic murmur, diastolic murmur - Extremities Extremities: no ischemia, pulses intact, pulses symmetrical, No edema, normal temperature, normal color, Full ROM Peripheral Pulses: within normal limits - Abdominal General gastrointestinal: soft, non-tender, non-distended, normal bowel sounds - Integumentary Integumentary: Present: warm, dry - Psychiatric Psychiatric: appropriate mood/affect, cooperative - Neurologic Neurologic: CNII-XII intact, moves all extremities - Allied Health Allied health notes reviewed: nursing, social work HEART Score - HEART Score Troponin: Troponin T < 0.010 ng/mL (0.00-0.029) 07/12/21 20:38 Results - Labs CBC & Chem 7: 07/14/21 05:30 08/25/21 10:38 Labs: Laboratory Last Values WBC 11.9 K/mm3 (4.5-11.0) H 07/14/21 05:30 RBC 4.41 M/mm3 (3.65-5.03) 07/14/21 05:30 Hgb 12.8 gm/dl (11.8-15.2) 07/14/21 05:30 Hct 38.7 % (35.5-45.6) 07/14/21 05:30 MCV 88 fl (84-94) 07/14/21 05:30 MCH 29 pg (28-32) 07/14/21 05:30 MCHC 33 % (32-34) 07/14/21 05:30 RDW 13.7 % (13.2-15.2) 07/14/21 05:30 Plt Count 142 K/mm3 (140-440) 07/14/21 05:30 Add Manual Diff Complete 07/13/21 05:18 Total Counted 100 07/13/21 05:18 Seg Neutrophils % Intervention Nurse 07/13/21 05:18 Seg Neuts % (Manual) 86.0 % (40.0-70.0) H 07/13/21 05:18 Band Neutrophils % 9.0 % 07/13/21 05:18 Lymphocytes % (Manual) 4.0 % (13.4-35.0) L 07/13/21 05:18 Monocytes % (Manual) 3.0 % (0.0-7.3) 07/12/21 20:38 Myelocytes % 1.0 % 07/13/21 05:18 Nucleated RBC % Not Reportable 07/13/21 05:18 Seg Neutrophils # Man 12.1 K/mm3 (1.8-7.7) H 07/13/21 05:18 Band Neutrophils # 1.3 K/mm3 07/13/21 05:18 Lymphocytes # (Manual) 0.6 K/mm3 (1.2-5.4) L 07/13/21 05:18 Abs React Lymphs (Man) 0.0 K/mm3 07/13/21 05:18 Monocytes # (Manual) 0.0 K/mm3 (0.0-0.8) 07/13/21 05:18 Eosinophils # (Manual) 0.0 K/mm3 (0.0-0.4) 07/13/21 05:18 Basophils # (Manual) 0.0 K/mm3 (0.0-0.1) 07/13/21 05:18 Metamyelocytes # 0.0 K/mm3 07/13/21 05:18 Myelocytes # 0.1 K/mm3 07/13/21 05:18 Promyelocytes # 0.0 K/mm3 07/13/21 05:18 Blast Cells # 0.0 K/mm3 07/13/21 05:18 WBC Morphology Not Reportable 07/13/21 05:18 Hypersegmented Neuts Not Reportable 07/13/21 05:18 Hyposegmented Neuts Not Reportable 07/13/21 05:18 Hypogranular Neuts Not Reportable 07/13/21 05:18 Smudge Cells Not Reportable 07/13/21 05:18 Toxic Granulation Not Reportable 07/13/21 05:18 Toxic Vacuolation Not Reportable 07/13/21 05:18 Dohle Bodies Not Reportable 07/13/21 05:18 Pelger-Huet Anomaly Not Reportable 07/13/21 05:18 Isha Rods Not Reportable 07/13/21 05:18 Platelet Estimate Consistent w auto 07/13/21 05:18 Clumped Platelets Not Reportable 07/13/21 05:18 Plt Clumps, EDTA Not Reportable 07/13/21 05:18 Large Platelets Not Reportable 07/13/21 05:18 Giant Platelets Not Reportable 07/13/21 05:18 Platelet Satelliting Not Reportable 07/13/21 05:18 Plt Morphology Comment Not Reportable 07/13/21 05:18 RBC Morphology Normal 07/13/21 05:18 Dimorphic RBCs Not Reportable 07/13/21 05:18 Polychromasia Not Reportable 07/13/21 05:18 Hypochromasia Not Reportable 07/13/21 05:18 Poikilocytosis Not Reportable 07/13/21 05:18 Anisocytosis Not Reportable 07/13/21 05:18 Microcytosis Not Reportable 07/13/21 05:18 Macrocytosis Not Reportable 07/13/21 05:18 Spherocytes Not Reportable 07/13/21 05:18 Pappenheimer Bodies Not Reportable 07/13/21 05:18 Sickle Cells Not Reportable 07/13/21 05:18 Target Cells Not Reportable 07/13/21 05:18 Tear Drop Cells Not Reportable 07/13/21 05:18 Ovalocytes Not Reportable 07/13/21 05:18 Helmet Cells Not Reportable 07/13/21 05:18 [place] Bodies Not Reportable 07/13/21 05:18 [place] Rings Not Reportable 07/13/21 05:18 [place] Cells Not Reportable 07/13/21 05:18 Bite Cells Not Reportable 07/13/21 05:18 Crenated Cell Not Reportable 07/13/21 05:18 Elliptocytes Not Reportable 07/13/21 05:18 Acanthocytes (Spur) Not Reportable 07/13/21 05:18 Rouleaux Not Reportable 07/13/21 05:18 Hemoglobin C Crystals Not Reportable 07/13/21 05:18 Schistocytes Not Reportable 07/13/21 05:18 Malaria parasites Not Reportable 07/13/21 05:18 Jonn Bodies Not Reportable 07/13/21 05:18 Hem Pathologist Commnt No 07/13/21 05:18 PT 17.1 Sec. (12.2-14.9) H 07/13/21 23:57 INR 1.34 (0.87-1.13) H 07/13/21 23:57 APTT 60.0 Sec. (24.2-36.6) H 07/13/21 23:57 D-Dimer > 47141 ng/mlDDU (0-234) H 07/13/21 23:57 VBG pH 7.170 (7.320-7.420) L* 07/12/21 20:38 Sodium 156 mmol/L (137-145) H 07/14/21 10:38 Potassium 4.0 mmol/L (3.6-5.0) 07/14/21 10:38 Chloride 124.2 mmol/L (98-107) H 07/14/21 10:38 Carbon Dioxide 22 mmol/L (22-30) 07/14/21 10:38 Anion Gap 14 mmol/L 07/14/21 10:38 BUN 28 mg/dL (9-20) H 07/14/21 10:38 Creatinine 1.0 mg/dL (0.8-1.3) 07/14/21 10:38 Estimated GFR > 60 ml/min 07/14/21 10:38 BUN/Creatinine Ratio 28 % 07/14/21 10:38 Glucose 172 mg/dL (75-100) H 07/14/21 10:38 POC Glucose 124 mg/dL (70-105) H 07/14/21 13:59 Hemoglobin A1c 16.5 % (4-6) H 07/14/21 05:30 Ketones Quantitative Moderate (Negative) 07/12/21 20:38 Lactic Acid 1.90 mmol/L (0.7-2.0) 07/12/21 20:38 Calcium 8.9 mg/dL (8.4-10.2) 07/14/21 10:38 Phosphorus 6.00 mg/dL (2.5-4.5) H 07/12/21 23:14 Magnesium 3.00 mg/dL (1.7-2.3) H 07/12/21 23:14 Ferritin 3041.0 ng/mL (30.0-300.0) H 07/13/21 23:57 Total Bilirubin 0.40 mg/dL (0.1-1.2) 07/14/21 10:38 AST 50 units/L (5-40) H 07/14/21 10:38 ALT 17 units/L (7-56) 07/14/21 10:38 Alkaline Phosphatase 122 units/L (35-129) 07/14/21 10:38 Ammonia 45.0 umol/L (25-60) 07/12/21 20:38 Lactate Dehydrogenase 842 units/L (91-180) H 07/13/21 23:57 Total Creatine Kinase 372 units/L (55-170) H 07/12/21 20:38 Troponin T < 0.010 ng/mL (0.00-0.029) 07/12/21 20:38 C-Reactive Protein 6.30 mg/dL (0.00-1.30) H 07/13/21 23:57 Total Protein 5.5 g/dL (6.3-8.2) L D 07/14/21 10:38 Albumin 2.7 g/dL (3.9-5) L 07/14/21 10:38 Albumin/Globulin Ratio 1.0 % 07/14/21 10:38 TSH 0.819 mlU/mL (0.270-4.200) 07/12/21 20:38 Urine Color Straw (Yellow) 07/13/21 01:33 Urine Turbidity Clear (Clear) 07/13/21 01:33 Urine pH 5.0 (5.0-7.0) 07/13/21 01:33 Ur Specific [place] 1.025 (1.003-1.030) 07/13/21 01:33 Urine Protein 30 mg/dl mg/dL (Negative) 07/13/21 01:33 Urine Glucose (UA) >=500 mg/dL (Negative) 07/13/21 01:33 Urine Ketones 80 mg/dL (Negative) 07/13/21 01:33 Urine Blood Mod (Negative) 07/13/21 01:33 Urine Nitrite Neg (Negative) 07/13/21 01:33 Urine Bilirubin Neg (Negative) 07/13/21 01:33 Urine Urobilinogen < 2.0 mg/dL (<2.0) 07/13/21 01:33 Ur Leukocyte Esterase Neg (Negative) 07/13/21 01:33 Urine WBC (Auto) < 1.0 /HPF (0.0-6.0) 07/13/21 01:33 Urine RBC (Auto) 1.0 /HPF (0.0-6.0) 07/13/21 01:33 U Epithel Cells (Auto) < 1.0 /HPF (0-13.0) 07/13/21 01:33 Hyaline Casts 1 /LPF 07/13/21 01:33 Urine Mucus Few /HPF 07/13/21 01:33 Salicylates < 0.3 mg/dL (2.8-20.0) L 07/12/21 20:38 Urine Opiates Screen Presumptive negative 07/13/21 01:33 Urine Methadone Screen Presumptive negative 07/13/21 01:33 Acetaminophen 5.0 ug/mL (10.0-30.0) L 07/12/21 20:38 Ur Barbiturates Screen Presumptive negative 07/13/21 01:33 Ur Phencyclidine Scrn Presumptive negative 07/13/21 01:33 Ur Amphetamines Screen Presumptive negative 07/13/21 01:33 U Benzodiazepines Scrn Presumptive negative 07/13/21 01:33 Urine Cocaine Screen Presumptive negative 07/13/21 01:33 U Marijuana (THC) Screen Presumptive negative 07/13/21 01:33 Drugs of Abuse Note Disclamer 07/13/21 01:33 Plasma/Serum Alcohol < 0.01 % (0-0.07) 07/12/21 20:38 Coronavirus (PCR) Positive (Negative) A 07/13/21 Unknown Blood Type A POSITIVE 07/12/21 20:38 Antibody Screen Negative 07/12/21 20:38 Microbiology: Microbiology 07/12/21 20:38 Peripheral/Venous Blood Culture - Preliminary NO GROWTH AFTER 24 HOURS 07/12/21 20:38 Peripheral/Venous Blood Culture - Preliminary NO GROWTH AFTER 24 HOURS Active Medications - Current Medications Current Medications: Generic Name Dose Route Start Last Admin Trade Name Freq PRN Reason Stop Dose Admin Acetaminophen 650 mg 07/12/21 22:08 Acetaminophen 325 Mg Tab PO Q4H PRN Pain MILD(1-3)/Fever >100.5/YOUNGBLOOD Albuterol/Ipratropium 1 ampul 07/13/21 02:00 07/14/21 15:58 Ipratropium/Albuterol Sulfate 3 Ml Ampul.Neb IH Not Given Q6HRT JESUS Dexamethasone 6 mg 07/13/21 10:00 07/14/21 10:11 Dexamethasone 4 Mg/Ml Vial IV 07/22/21 10:01 6 mg DAILY JESUS Administration Dextrose 50 ml 07/14/21 07:19 Dextrose 50% In Water (25gm) 50 Ml Syringe IV Q30MIN PRN Hypoglycemia Protocol Docusate Sodium 100 mg 07/13/21 22:00 07/14/21 10:11 Docusate Sodium 100 Mg/10 Ml Oral Liqd PO Not Given BID JESUS Enoxaparin Sodium 100 mg 07/14/21 10:00 07/14/21 11:31 Enoxaparin 100 Mg/1 Ml Inj SUB-Q 100 mg Q12HR JESUS Administration Protocol Famotidine 20 mg 07/13/21 10:00 07/14/21 10:11 Famotidine 20 Mg/2 Ml Inj IV 20 mg BID JESUS Administration Hydralazine HCl 10 mg 07/13/21 21:05 Hydralazine 20 Mg/1 Ml Inj IV Q4H PRN Hypertension Hydromorphone HCl 0.5 mg 07/12/21 22:08 Hydromorphone 1 Mg/1 Ml Inj IV Q3H PRN Pain , Severe (7-10) Azithromycin 500 mg in 250 mls @ 250 mls/hr 07/12/21 23:00 07/14/21 10:10 Zithromax/Ns IV 250 mls/hr Q24HR JESUS Administration Protocol Ceftriaxone Sodium 2 gm in 100 mls @ 200 mls/hr 07/12/21 23:15 07/14/21 10:11 Rocephin/Ns 2 Gm/100 Ml IV 200 mls/hr Q24HR JESUS Administration Protocol Dextrose 1,000 mls @ 42 mls/hr 07/14/21 10:00 07/14/21 10:13 D5w IV 42 mls/hr DIRECT JESUS Administration REMDESIVIR 100 mg/ Sodium 250 mls @ 500 mls/hr 07/15/21 21:00 Chloride IV 07/18/21 21:29 Q24HR@2100 JESUS Insulin Human Isoph/Insulin Regular 25 unit 07/14/21 09:00 07/14/21 09:02 Insulin Nph/Regular 70/30 Inj SUB-Q 25 unit QDDIAB [facility] Administration Insulin Human Isoph/Insulin Regular 10 unit 07/14/21 17:00 Insulin Nph/Regular 70/30 Inj SUB-Q QPMDIAB [facility] Insulin Human Lispro 0 unit 07/14/21 08:00 07/14/21 16:56 Insulin Lispro 100 Unit/Ml SUB-Q Not Given ACHS [facility] Protocol Ondansetron HCl 4 mg 07/12/21 22:08 Ondansetron 4 Mg/2 Ml Inj IV Q8H PRN Nausea And Vomiting Oxycodone/Acetaminophen 1 tab 07/12/21 22:08 Oxycodone /Acetaminophen 5-325mg Tab PO Q6H PRN Pain, Moderate (4-6) Sodium Chloride 10 ml 07/13/21 10:00 07/14/21 10:03 Sodium Chloride 0.9% 10 Ml Flush Syringe IV 10 ml BID JESUS Administration Sodium Chloride 10 ml 07/12/21 22:08 Sodium Chloride 0.9% 10 Ml Flush Syringe IV PRN PRN LINE FLUSH Sodium Chloride 50 ml 07/14/21 10:00 07/14/21 10:03 Sodium Chloride 0.9% 50 Ml Ivpb IV 07/18/21 21:01 50 ml Q24HR@2100 [facility] Administration Nutrition/Malnutrition Assess - Dietary Evaluation Nutrition/Malnutrition Findings: Nutrition Notes Start: 07/13/21 10:12 Freq: Status: Active Protocol: Document 07/13/21 10:12 CHIQUITA (Rec: 07/13/21 10:15 CHIQUITA [email or web address]) Nutrition Notes Need for Assessment generated from: MD Order,Education Initial or Follow up Brief Note Current Diagnosis Diabetes Other Pertinent Diagnosis DKA Current Diet NPO Subjective/Other Information RD consulted for diet education. Pt in ED at this time. Nutrition Intervention Follow-Up By: 07/16/21 Additional Comments F/U: diet education needs, transfer to medical floor <SARAH MADSEN - Last Filed: 07/14/21 20:14> Assessment and Plan Assessment and plan: I saw and evaluated the patient. Discussed with the nurse practitioner and agree with their findings and plan as documented in this note. Hospitalist Physical - Constitutional Vitals: Temp Pulse Resp BP Pulse Ox 98.7 F 120 H 29 H 123/99 91 07/13/21 22:50 07/14/21 06:00 07/14/21 06:00 07/14/21 06:00 07/14/21 10:00 HEART Score - HEART Score Troponin: Troponin T < 0.010 ng/mL (0.00-0.029) 07/12/21 20:38 Results - Labs CBC & Chem 7: 07/14/21 05:30 07/14/21 10:38 Labs: Laboratory Last Values WBC 11.9 K/mm3 (4.5-11.0) H 07/14/21 05:30 RBC 4.41 M/mm3 (3.65-5.03) 07/14/21 05:30 Hgb 12.8 gm/dl (11.8-15.2) 07/14/21 05:30 Hct 38.7 % (35.5-45.6) 07/14/21 05:30 MCV 88 fl (84-94) 07/14/21 05:30 MCH 29 pg (28-32) 07/14/21 05:30 MCHC 33 % (32-34) 07/14/21 05:30 RDW 13.7 % (13.2-15.2) 07/14/21 05:30 Plt Count 142 K/mm3 (140-440) 07/14/21 05:30 Add Manual Diff Complete 07/13/21 05:18 Total Counted 100 07/13/21 05:18 Seg Neutrophils % Intervention Nurse 07/13/21 05:18 Seg Neuts % (Manual) 86.0 % (40.0-70.0) H 07/13/21 05:18 Band Neutrophils % 9.0 % 07/13/21 05:18 Lymphocytes % (Manual) 4.0 % (13.4-35.0) L 07/13/21 05:18 Monocytes % (Manual) 3.0 % (0.0-7.3) 07/12/21 20:38 Myelocytes % 1.0 % 07/13/21 05:18 Nucleated RBC % Not Reportable 07/13/21 05:18 Seg Neutrophils # Man 12.1 K/mm3 (1.8-7.7) H 07/13/21 05:18 Band Neutrophils # 1.3 K/mm3 07/13/21 05:18 Lymphocytes # (Manual) 0.6 K/mm3 (1.2-5.4) L 07/13/21 05:18 Abs React Lymphs (Man) 0.0 K/mm3 07/13/21 05:18 Monocytes # (Manual) 0.0 K/mm3 (0.0-0.8) 07/13/21 05:18 Eosinophils # (Manual) 0.0 K/mm3 (0.0-0.4) 07/13/21 05:18 Basophils # (Manual) 0.0 K/mm3 (0.0-0.1) 07/13/21 05:18 Metamyelocytes # 0.0 K/mm3 07/13/21 05:18 Myelocytes # 0.1 K/mm3 07/13/21 05:18 Promyelocytes # 0.0 K/mm3 07/13/21 05:18 Blast Cells # 0.0 K/mm3 07/13/21 05:18 WBC Morphology Not Reportable 07/13/21 05:18 Hypersegmented Neuts Not Reportable 07/13/21 05:18 Hyposegmented Neuts Not Reportable 07/13/21 05:18 Hypogranular Neuts Not Reportable 07/13/21 05:18 Smudge Cells Not Reportable 07/13/21 05:18 Toxic Granulation Not Reportable 07/13/21 05:18 Toxic Vacuolation Not Reportable 07/13/21 05:18 Dohle Bodies Not Reportable 07/13/21 05:18 Pelger-Huet Anomaly Not Reportable 07/13/21 05:18 Isha Rods Not Reportable 07/13/21 05:18 Platelet Estimate Consistent w auto 07/13/21 05:18 Clumped Platelets Not Reportable 07/13/21 05:18 Plt Clumps, EDTA Not Reportable 07/13/21 05:18 Large Platelets Not Reportable 07/13/21 05:18 Giant Platelets Not Reportable 07/13/21 05:18 Platelet Satelliting Not Reportable 07/13/21 05:18 Plt Morphology Comment Not Reportable 07/13/21 05:18 RBC Morphology Normal 07/13/21 05:18 Dimorphic RBCs Not Reportable 07/13/21 05:18 Polychromasia Not Reportable 07/13/21 05:18 Hypochromasia Not Reportable 07/13/21 05:18 Poikilocytosis Not Reportable 07/13/21 05:18 Anisocytosis Not Reportable 07/13/21 05:18 Microcytosis Not Reportable 07/13/21 05:18 Macrocytosis Not Reportable 07/13/21 05:18 Spherocytes Not Reportable 07/13/21 05:18 Pappenheimer Bodies Not Reportable 07/13/21 05:18 Sickle Cells Not Reportable 07/13/21 05:18 Target Cells Not Reportable 07/13/21 05:18 Tear Drop Cells Not Reportable 07/13/21 05:18 Ovalocytes Not Reportable 07/13/21 05:18 Helmet Cells Not Reportable 07/13/21 05:18 [place] Bodies Not Reportable 07/13/21 05:18 [place] Rings Not Reportable 07/13/21 05:18 [place] Cells Not Reportable 07/13/21 05:18 Bite Cells Not Reportable 07/13/21 05:18 Crenated Cell Not Reportable 07/13/21 05:18 Elliptocytes Not Reportable 07/13/21 05:18 Acanthocytes (Spur) Not Reportable 07/13/21 05:18 Rouleaux Not Reportable 07/13/21 05:18 Hemoglobin C Crystals Not Reportable 07/13/21 05:18 Schistocytes Not Reportable 07/13/21 05:18 Malaria parasites Not Reportable 07/13/21 05:18 Jonn Bodies Not Reportable 07/13/21 05:18 Hem Pathologist Commnt No 07/13/21 05:18 PT 17.1 Sec. (12.2-14.9) H 07/13/21 23:57 INR 1.34 (0.87-1.13) H 07/13/21 23:57 APTT 60.0 Sec. (24.2-36.6) H 07/13/21 23:57 D-Dimer > 39294 ng/mlDDU (0-234) H 07/13/21 23:57 VBG pH 7.170 (7.320-7.420) L* 07/12/21 20:38 Sodium 156 mmol/L (137-145) H 07/14/21 10:38 Potassium 4.0 mmol/L (3.6-5.0) 07/14/21 10:38 Chloride 124.2 mmol/L (98-107) H 07/14/21 10:38 Carbon Dioxide 22 mmol/L (22-30) 07/14/21 10:38 Anion Gap 14 mmol/L 07/14/21 10:38 BUN 28 mg/dL (9-20) H 07/14/21 10:38 Creatinine 1.0 mg/dL (0.8-1.3) 07/14/21 10:38 Estimated GFR > 60 ml/min 07/14/21 10:38 BUN/Creatinine Ratio 28 % 07/14/21 10:38 Glucose 172 mg/dL (75-100) H 07/14/21 10:38 POC Glucose 92 mg/dL (70-105) 07/14/21 18:44 Hemoglobin A1c 16.5 % (4-6) H 07/14/21 05:30 Ketones Quantitative Moderate (Negative) 07/12/21 20:38 Lactic Acid 1.90 mmol/L (0.7-2.0) 07/12/21 20:38 Calcium 8.9 mg/dL (8.4-10.2) 07/14/21 10:38 Phosphorus 6.00 mg/dL (2.5-4.5) H 07/12/21 23:14 Magnesium 3.00 mg/dL (1.7-2.3) H 07/12/21 23:14 Ferritin 3041.0 ng/mL (30.0-300.0) H 07/13/21 23:57 Total Bilirubin 0.40 mg/dL (0.1-1.2) 07/14/21 10:38 AST 50 units/L (5-40) H 07/14/21 10:38 ALT 17 units/L (7-56) 07/14/21 10:38 Alkaline Phosphatase 122 units/L (35-129) 07/14/21 10:38 Ammonia 45.0 umol/L (25-60) 07/12/21 20:38 Lactate Dehydrogenase 842 units/L (91-180) H 07/13/21 23:57 Total Creatine Kinase 372 units/L (55-170) H 07/12/21 20:38 Troponin T < 0.010 ng/mL (0.00-0.029) 07/12/21 20:38 C-Reactive Protein 6.30 mg/dL (0.00-1.30) H 07/13/21 23:57 Total Protein 5.5 g/dL (6.3-8.2) L D 07/14/21 10:38 Albumin 2.7 g/dL (3.9-5) L 07/14/21 10:38 Albumin/Globulin Ratio 1.0 % 07/14/21 10:38 TSH 0.819 mlU/mL (0.270-4.200) 07/12/21 20:38 Urine Color Straw (Yellow) 07/13/21 01:33 Urine Turbidity Clear (Clear) 07/13/21 01:33 Urine pH 5.0 (5.0-7.0) 07/13/21 01:33 Ur Specific [place] 1.025 (1.003-1.030) 07/13/21 01:33 Urine Protein 30 mg/dl mg/dL (Negative) 07/13/21 01:33 Urine Glucose (UA) >=500 mg/dL (Negative) 07/13/21 01:33 Urine Ketones 80 mg/dL (Negative) 07/13/21 01:33 Urine Blood Mod (Negative) 07/13/21 01:33 Urine Nitrite Neg (Negative) 07/13/21 01:33 Urine Bilirubin Neg (Negative) 07/13/21 01:33 Urine Urobilinogen < 2.0 mg/dL (<2.0) 07/13/21 01:33 Ur Leukocyte Esterase Neg (Negative) 07/13/21 01:33 Urine WBC (Auto) < 1.0 /HPF (0.0-6.0) 07/13/21 01:33 Urine RBC (Auto) 1.0 /HPF (0.0-6.0) 07/13/21 01:33 U Epithel Cells (Auto) < 1.0 /HPF (0-13.0) 07/13/21 01:33 Hyaline Casts 1 /LPF 07/13/21 01:33 Urine Mucus Few /HPF 07/13/21 01:33 Salicylates < 0.3 mg/dL (2.8-20.0) L 07/12/21 20:38 Urine Opiates Screen Presumptive negative 07/13/21 01:33 Urine Methadone Screen Presumptive negative 07/13/21 01:33 Acetaminophen 5.0 ug/mL (10.0-30.0) L 07/12/21 20:38 Ur Barbiturates Screen Presumptive negative 07/13/21 01:33 Ur Phencyclidine Scrn Presumptive negative 07/13/21 01:33 Ur Amphetamines Screen Presumptive negative 07/13/21 01:33 U Benzodiazepines Scrn Presumptive negative 07/13/21 01:33 Urine Cocaine Screen Presumptive negative 07/13/21 01:33 U Marijuana (THC) Screen Presumptive negative 07/13/21 01:33 Drugs of Abuse Note Disclamer 07/13/21 01:33 Plasma/Serum Alcohol < 0.01 % (0-0.07) 07/12/21 20:38 Coronavirus (PCR) Positive (Negative) A 07/13/21 Unknown Blood Type A POSITIVE 07/12/21 20:38 Antibody Screen Negative 07/12/21 20:38 Microbiology: Microbiology 07/12/21 20:38 Peripheral/Venous Blood Culture - Preliminary NO GROWTH AFTER 24 HOURS 07/12/21 20:38 Peripheral/Venous Blood Culture - Preliminary NO GROWTH AFTER 24 HOURS Active Medications - Current Medications Current Medications: Generic Name Dose Route Start Last Admin Trade Name Freq PRN Reason Stop Dose Admin Acetaminophen 650 mg 07/12/21 22:08 Acetaminophen 325 Mg Tab PO Q4H PRN Pain MILD(1-3)/Fever >100.5/YOUNGBLOOD Albuterol/Ipratropium 1 ampul 07/13/21 02:00 07/14/21 15:58 Ipratropium/Albuterol Sulfate 3 Ml Ampul.Neb IH Not Given Q6HRT JESUS Dexamethasone 6 mg 07/13/21 10:00 07/14/21 10:11 Dexamethasone 4 Mg/Ml Vial IV 07/22/21 10:01 6 mg DAILY JESUS Administration Dextrose 50 ml 07/14/21 07:19 Dextrose 50% In Water (25gm) 50 Ml Syringe IV Q30MIN PRN Hypoglycemia Protocol Docusate Sodium 100 mg 07/13/21 22:00 07/14/21 10:11 Docusate Sodium 100 Mg/10 Ml Oral Liqd PO Not Given BID JESUS Enoxaparin Sodium 100 mg 07/14/21 10:00 07/14/21 11:31 Enoxaparin 100 Mg/1 Ml Inj SUB-Q 100 mg Q12HR JESUS Administration Protocol Famotidine 20 mg 07/13/21 10:00 07/14/21 10:11 Famotidine 20 Mg/2 Ml Inj IV 20 mg BID JESUS Administration Hydralazine HCl 10 mg 07/13/21 21:05 Hydralazine 20 Mg/1 Ml Inj IV Q4H PRN Hypertension Hydromorphone HCl 0.5 mg 07/12/21 22:08 Hydromorphone 1 Mg/1 Ml Inj IV Q3H PRN Pain , Severe (7-10) Azithromycin 500 mg in 250 mls @ 250 mls/hr 07/12/21 23:00 07/14/21 10:10 Zithromax/Ns IV 250 mls/hr Q24HR JESUS Administration Protocol Ceftriaxone Sodium 2 gm in 100 mls @ 200 mls/hr 07/12/21 23:15 07/14/21 10:11 Rocephin/Ns 2 Gm/100 Ml IV 200 mls/hr Q24HR JESUS Administration Protocol Dextrose 1,000 mls @ 42 mls/hr 07/14/21 10:00 07/14/21 10:13 D5w IV 42 mls/hr DIRECT JESUS Administration REMDESIVIR 100 mg/ Sodium 250 mls @ 500 mls/hr 07/15/21 21:00 Chloride IV 07/18/21 21:29 [id number] JESUS Insulin Human Isoph/Insulin Regular 25 unit 07/14/21 09:00 07/14/21 09:02 Insulin Nph/Regular 70/30 Inj SUB-Q 25 unit QDDIAB JESUS Administration Insulin Human Isoph/Insulin Regular 10 unit 07/14/21 17:00 07/14/21 18:45 Insulin Nph/Regular 70/30 Inj SUB-Q Not Given QPMDIAB JESUS Insulin Human Lispro 0 unit 07/14/21 08:00 07/14/21 16:56 Insulin Lispro 100 Unit/Ml SUB-Q Not Given ACHS [facility] Protocol Ondansetron HCl 4 mg 07/12/21 22:08 Ondansetron 4 Mg/2 Ml Inj IV Q8H PRN Nausea And Vomiting Oxycodone/Acetaminophen 1 tab 07/12/21 22:08 Oxycodone /Acetaminophen 5-325mg Tab PO Q6H PRN Pain, Moderate (4-6) Sodium Chloride 10 ml 07/13/21 10:00 07/14/21 10:03 Sodium Chloride 0.9% 10 Ml Flush Syringe IV 10 ml BID JESUS Administration Sodium Chloride 10 ml 07/12/21 22:08 Sodium Chloride 0.9% 10 Ml Flush Syringe IV PRN PRN LINE FLUSH Sodium Chloride 50 ml 07/14/21 10:00 07/14/21 10:03 Sodium Chloride 0.9% 50 Ml Ivpb IV 07/18/21 21:01 50 ml Q24HR@2100 JESUS Administration Nutrition/Malnutrition Assess - Dietary Evaluation Nutrition/Malnutrition Findings: Nutrition Notes Start: 07/13/21 10:12 Freq: Status: Active Protocol: Document 07/13/21 10:12 CHIQUITA (Rec: 07/13/21 10:15 CHIQUITA [id number]) Nutrition Notes Need for Assessment generated from: MD Order,Education Initial or Follow up Brief Note Current Diagnosis Diabetes Other Pertinent Diagnosis DKA Current Diet NPO Subjective/Other Information RD consulted for diet education. Pt in ED at this time. Nutrition Intervention Follow-Up By: 07/16/21 Additional Comments F/U: diet education needs, transfer to medical floor
[2021-07-15] MEDS: IPRATROPIUM/ALBUTEROL SULFATE 3 ML AMPUL.NEB IH SCH ×4 (05:01→23:22)
[2021-07-15 05:19] LABS: Hematocrit 38.6 % (35.5-45.6); Hemoglobin 13.6 gm/dl (11.8-15.2); Mean Corpuscular HGB Conc 35 % (32-34); Mean Corpuscular Volume 88 fl (84-94); Red Blood Count 4.38 M/mm3 (3.65-5.03)
[2021-07-15 05:27] LABS: Platelet Count 97 K/mm3 (140-440)
[2021-07-15 05:34] LABS: C-Reactive Protein 12.1 mg/dL (0.00-1.30)
[2021-07-15 05:40] LABS: Alanine Aminotransferase 21 units/L (7-56); Albumin 2.4 g/dL (3.9-5); BUN/Creatinine Ratio 31; Blood Urea Nitrogen 31 mg/dL (9-20); Calcium 8.9 mg/dL (8.4-10.2); Hemolysis Index 6
[2021-07-15] MEDS ORDERED: TOCILIZUMAB 810 MG in SODIUM CHLORIDE 0.9% 100 ML IV ONE (11:00)
[2021-07-15] MEDS: INSULIN LISPRO 100 UNIT/ML SUB-Q SCH ×3 (11:02→16:46)
[2021-07-15] MEDS: INSULIN NPH/REGULAR 70/30 INJ SUB-Q SCH ×2 (11:02→16:46)
[2021-07-15] MEDS: FAMOTIDINE 20 MG/2 ML INJ IV SCH ×2 (11:06→22:34)
[2021-07-15] MEDS: dexAMETHasone 4 MG/ML VIAL IV SCH (11:06)
[2021-07-15] MEDS: cefTRIAXone/NS 2 GM/100 ML 2 GM/100 ML BAG IV SCH (11:06)
[2021-07-15] MEDS: AZITHROMYCIN/NS 500 MG/250 ML 500 MG/250 ML BAG IV SCH (11:06)
[2021-07-15] MEDS: ENOXAPARIN 100 MG/1 ML INJ SUB-Q SCH ×2 (11:07→22:36)
--- NOTE | 2021-07-15 11:18 | Progress Note ---
Assessment and Plan Cultures: SARS CoV2 PCR: Positive 07/12/2021 blood culture: No growth A/P: 66/M with diabetes admitted with DKA: #COVID-19 pneumonia: D-dimer >10,000, , CRP 6.3, ferritin 3041, LDH 842. #Acute hypoxic respiratory failure: Secondary to COVID-19 #Acute DKA, uncontrolled DM: HbA1c 16.5 #Acute encephalopathy #Bilateral lower extremity acute DVT: On anticoagulation Recs: -CRP worsened, meets criteria for Tocilizumab, discussed with pharmacy -continue IV remdesivir -Continue steroids -Follow-up procalcitonin, if low, discontinue antibiotics -anticoagulation for b/l acute DVT Ally Barron MD, FACP [facility] ([facility] O: [phone] F: [phone] Subjective Date of service: 07/15/21 Interval history: No fever. Hypoxic, requiring nonrebreather mask. D-dimer remains extremely elevated, CRP today has come back at 12.1. Objective - Exam Narrative Exam: Physical Exam (reviewed in chart to minimize risk of transmission) Constitutional: deferred Head, Ears, Nose: deferred Eyes: deferred Neck: deferred Oral: deferred Cardiovascular: deferred Respiratory: deferred GI: deferred Musculoskeletal: deferred Skin: deferred Hem/Lymphatic: deferred Psych: deferred Neurological: deferred - Constitutional Vitals: Vital Signs Temp Pulse Resp BP Pulse Ox 98.1 F 115 H 23 115/83 92 07/15/21 08:00 07/15/21 10:20 07/15/21 10:20 07/15/21 09:00 07/15/21 10:04 Temperature -Last 24 Hours Temperature 98.1 F Temperature 99.5 F Temperature 99.5 F Temperature 99.8 F - Labs CBC & Chem 7: 07/15/21 04:45 07/15/21 04:45 Labs: Abnormal lab results 07/14/21 07/14/21 07/15/21 Range/Units 10:38 13:59 04:45 WBC 12.1 H (4.5-11.0) K/mm3 MCHC 35 H (32-34) % Plt Count 97 L (140-440) K/mm3 D-Dimer (0-234) ng/mlDDU ABG pH (7.320-7.450) POC ABG pCO2 (32.0-48.0) mmHg POC ABG pO2 (83-108) mmHg ABG Oxyhemoglobin (94-98) ABG Sodium (136.0-145.0) mmol/L ABG Chloride (98-107) mmol/L ABG Glucose (65-95) mg/dL Sodium (137-145) mmol/L Chloride (98-107) mmol/L BUN (9-20) mg/dL POC Glucose 124 H (70-105) mg/dL Ferritin (30.0-300.0) ng/mL AST (5-40) units/L Alkaline Phosphatase (35-129) units/L Lactate Dehydrogenase (91-180) units/L C-Reactive Protein (0.00-1.30) mg/dL Total Protein 5.5 L D (6.3-8.2) g/dL Albumin (3.9-5) g/dL Arterial Blood Glucose (65-95) mg/dL 07/15/21 07/15/21 07/15/21 Range/Units 04:45 04:45 04:45 WBC (4.5-11.0) K/mm3 MCHC (32-34) % Plt Count (140-440) K/mm3 D-Dimer > 64771 H (0-234) ng/mlDDU ABG pH (7.320-7.450) POC ABG pCO2 (32.0-48.0) mmHg POC ABG pO2 (83-108) mmHg ABG Oxyhemoglobin (94-98) ABG Sodium (136.0-145.0) mmol/L ABG Chloride (98-107) mmol/L ABG Glucose (65-95) mg/dL Sodium (137-145) mmol/L Chloride (98-107) mmol/L BUN (9-20) mg/dL POC Glucose (70-105) mg/dL Ferritin > 2000.0 H (30.0-300.0) ng/mL AST (5-40) units/L Alkaline Phosphatase (35-129) units/L Lactate Dehydrogenase 1125 H (91-180) units/L C-Reactive Protein 12.10 H (0.00-1.30) mg/dL Total Protein (6.3-8.2) g/dL Albumin (3.9-5) g/dL Arterial Blood Glucose (65-95) mg/dL 07/15/21 07/15/21 07/15/21 Range/Units 04:45 08:23 10:22 WBC (4.5-11.0) K/mm3 MCHC (32-34) % Plt Count (140-440) K/mm3 D-Dimer (0-234) ng/mlDDU ABG pH 7.452 H (7.320-7.450) POC ABG pCO2 30.6 L (32.0-48.0) mmHg POC ABG pO2 59.5 L (83-108) mmHg ABG Oxyhemoglobin 91.2 L (94-98) ABG Sodium 154.0 H (136.0-145.0) mmol/L ABG Chloride 124.0 H (98-107) mmol/L ABG Glucose 174 H (65-95) mg/dL Sodium 159 H (137-145) mmol/L Chloride 126.8 H (98-107) mmol/L BUN 31 H (9-20) mg/dL POC Glucose 138 H (70-105) mg/dL Ferritin (30.0-300.0) ng/mL AST 64 H (5-40) units/L Alkaline Phosphatase 137 H (35-129) units/L Lactate Dehydrogenase (91-180) units/L C-Reactive Protein (0.00-1.30) mg/dL Total Protein 5.6 L (6.3-8.2) g/dL Albumin 2.4 L (3.9-5) g/dL Arterial Blood Glucose 174 H (65-95) mg/dL
[2021-07-15] MEDS: DOCUSATE SODIUM 100 MG/10 ML ORAL LIQD PO SCH ×2 (11:43→22:37)
[2021-07-15] MEDS: DEXTROSE 5% IN WATER 1,000 ML IV SCH (13:01)
--- NOTE | 2021-07-15 14:28 | Event Note ---
Date: 07/15/21 Agree with full dose anticoagulation. Prone as tolerated. AGree with IV abx and steroids. Guarded to poor prognosis given oxygen requirement
--- NOTE | 2021-07-15 15:38 | Progress Note ---
Assessment and Plan Assessment and plan: Assessment and plan: This 66-year-old male with DM admitted as a COVID-19 PUI with DKA Neuro: Acute metabolic encephalopathy -07/09 CT head-> see results -Avoid delirium -Aspiration/fall precautions -Neuro consulted, appreciate recommendations -MRI brain and MRA brain pending Cardio: ST -Blood Pressure monitoring per protocol -As needed hydralazine -Echo pending Respiratory: Rule out PE, acute hypoxic respiratory failure -Patient is on nonrebreather with optiflow -CCM consulted, appreciate recs -CTA chest pending -Supplemental oxygen as needed -Pulmonary hygiene GI: N.p.o. -Patient was transitioned to cc diet but remains NPO as he is on NRB with optiflow -BR: Colace -PPI : LUIS M 2/2 vasomotor nephropathy (resolving), hypernatremia, hyper chloremia, m etabolic acidosis, -Presented with a BUN/creatinine 1.5/50 but now trending down -Strict intake and output -Renally dose medications -Avoid nephrotoxic medication -Consider nephrology work-up if worsening Heme: Leukocytosis, DVT -BLE Dopplar US shows acute occlusive DVT noted in the posterior tibial vein and peroneal vein -Started on heparin drip but now switched to lovenox -SCDs to bilateral LE while in bed -Trend CBC Endo: s/p DKA, h/o DM (noncompliant per family) -s/p DKA protocol -Hemaglobin A1C 16.5 -CC diet when appropriate -avoid hypoglycemia -SSI with long acting insulin ID: COVID-19 PNA -COVID-19 PCR positive -Infectious disease consulted, appreciate recommendations -Currently on empiric antibiotics -Patient started on dexamethasone (07/13-07/22) -Redesivir (07/14-07/18) -Isolation/droplet precautions -Prone as tolerated -Trend COVID-19 inflammatory markers -Anticoagulation per protocol -Pulmonary hygiene -SPO2 monitoring -Follow culture data -Prone as tolerated Hospital course to date 07/15/2021: Continuing therapy with steroids, remdesivir, antibiotics for now. Patient remains on high flow nasal cannula with flow rate 40 L/min and FiO2 100%. Will attempt to reach out to family today. The high probability of a clinically significant, sudden or life threatening deterioration of the [pulm,ID,endo] system(s) required my full and direct attention, intervention and personal management. The aggregate critical care time was [60] minutes. This time is in addition to time spent performing reported procedures but includes the following: [x] Data Review and interpretation [x] Patient assessment and monitoring of vital signs [x] Documentation [x] Medication orders and management Disposition Plan: icu Total Time Spent with Patient (Minutes): 60 History Interval history: Patient follows commands however is slightly confused and lethargic on encounter. Hospitalist Physical - Physical exam Narrative exam: General appearance: Present: mild distress, well-nourished, obese - EENT Eyes: Present: PERRL, EOM intact ENT: hearing intact, clear oral mucosa - Neck Neck: Present: supple, normal ROM - Respiratory Respiratory effort: normal Respiratory: bilateral: diminished - Cardiovascular Rhythm: regular Heart Sounds: Present: S1 & S2. Absent: systolic murmur, diastolic murmur - Extremities Extremities: no ischemia, pulses intact, pulses symmetrical, No edema, normal temperature, normal color, Full ROM Peripheral Pulses: within normal limits - Abdominal General gastrointestinal: soft, non-tender, non-distended, normal bowel sounds - Integumentary Integumentary: Present: warm, dry. Please refer to full assessment in nursing note. - Psychiatric Psychiatric: appropriate mood/affect, cooperative - Neurologic Neurologic: CNII-XII intact, moves all extremities - Allied Health Allied health notes reviewed: nursing, social work - Constitutional Vitals: Temp Pulse Resp BP Pulse Ox 98.5 F 114 H 18 112/78 92 07/15/21 12:00 07/15/21 14:00 07/15/21 14:00 07/15/21 14:00 07/15/21 14:00 General appearance: Present: mild distress, well-nourished, obese HEART Score - HEART Score Troponin: Troponin T < 0.010 ng/mL (0.00-0.029) 07/12/21 20:38 Results - Labs CBC & Chem 7: 07/15/21 04:45 07/15/21 04:45 Labs: Laboratory Last Values WBC 12.1 K/mm3 (4.5-11.0) H 07/15/21 04:45 RBC 4.38 M/mm3 (3.65-5.03) 07/15/21 04:45 Hgb 13.6 gm/dl (11.8-15.2) 07/15/21 04:45 Hct 38.6 % (35.5-45.6) 07/15/21 04:45 MCV 88 fl (84-94) 07/15/21 04:45 MCH 31 pg (28-32) 07/15/21 04:45 MCHC 35 % (32-34) H 07/15/21 04:45 RDW 14.0 % (13.2-15.2) 07/15/21 04:45 Plt Count 97 K/mm3 (140-440) L 07/15/21 04:45 Add Manual Diff Complete 07/13/21 05:18 Total Counted 100 07/13/21 05:18 Seg Neutrophils % Sewing Machine Operator Plastic Zipper 07/13/21 05:18 Seg Neuts % (Manual) 86.0 % (40.0-70.0) H 07/13/21 05:18 Band Neutrophils % 9.0 % 07/13/21 05:18 Lymphocytes % (Manual) 4.0 % (13.4-35.0) L 07/13/21 05:18 Monocytes % (Manual) 3.0 % (0.0-7.3) 07/12/21 20:38 Myelocytes % 1.0 % 07/13/21 05:18 Nucleated RBC % Not Reportable 07/13/21 05:18 Seg Neutrophils # Man 12.1 K/mm3 (1.8-7.7) H 07/13/21 05:18 Band Neutrophils # 1.3 K/mm3 07/13/21 05:18 Lymphocytes # (Manual) 0.6 K/mm3 (1.2-5.4) L 07/13/21 05:18 Abs React Lymphs (Man) 0.0 K/mm3 07/13/21 05:18 Monocytes # (Manual) 0.0 K/mm3 (0.0-0.8) 07/13/21 05:18 Eosinophils # (Manual) 0.0 K/mm3 (0.0-0.4) 07/13/21 05:18 Basophils # (Manual) 0.0 K/mm3 (0.0-0.1) 07/13/21 05:18 Metamyelocytes # 0.0 K/mm3 07/13/21 05:18 Myelocytes # 0.1 K/mm3 07/13/21 05:18 Promyelocytes # 0.0 K/mm3 07/13/21 05:18 Blast Cells # 0.0 K/mm3 07/13/21 05:18 WBC Morphology Not Reportable 07/13/21 05:18 Hypersegmented Neuts Not Reportable 07/13/21 05:18 Hyposegmented Neuts Not Reportable 07/13/21 05:18 Hypogranular Neuts Not Reportable 07/13/21 05:18 Smudge Cells Not Reportable 07/13/21 05:18 Toxic Granulation Not Reportable 07/13/21 05:18 Toxic Vacuolation Not Reportable 07/13/21 05:18 Dohle Bodies Not Reportable 07/13/21 05:18 Pelger-Huet Anomaly Not Reportable 07/13/21 05:18 Isha Rods Not Reportable 07/13/21 05:18 Platelet Estimate Consistent w auto 07/13/21 05:18 Clumped Platelets Not Reportable 07/13/21 05:18 Plt Clumps, EDTA Not Reportable 07/13/21 05:18 Large Platelets Not Reportable 07/13/21 05:18 Giant Platelets Not Reportable 07/13/21 05:18 Platelet Satelliting Not Reportable 07/13/21 05:18 Plt Morphology Comment Not Reportable 07/13/21 05:18 RBC Morphology Normal 07/13/21 05:18 Dimorphic RBCs Not Reportable 07/13/21 05:18 Polychromasia Not Reportable 07/13/21 05:18 Hypochromasia Not Reportable 07/13/21 05:18 Poikilocytosis Not Reportable 07/13/21 05:18 Anisocytosis Not Reportable 07/13/21 05:18 Microcytosis Not Reportable 07/13/21 05:18 Macrocytosis Not Reportable 07/13/21 05:18 Spherocytes Not Reportable 07/13/21 05:18 Pappenheimer Bodies Not Reportable 07/13/21 05:18 Sickle Cells Not Reportable 07/13/21 05:18 Target Cells Not Reportable 07/13/21 05:18 Tear Drop Cells Not Reportable 07/13/21 05:18 Ovalocytes Not Reportable 07/13/21 05:18 Helmet Cells Not Reportable 07/13/21 05:18 Nicole-Turlock Bodies Not Reportable 07/13/21 05:18 Gilman Rings Not Reportable 07/13/21 05:18 Malick Cells Not Reportable 07/13/21 05:18 Bite Cells Not Reportable 07/13/21 05:18 Crenated Cell Not Reportable 07/13/21 05:18 Elliptocytes Not Reportable 07/13/21 05:18 Acanthocytes (Spur) Not Reportable 07/13/21 05:18 Rouleaux Not Reportable 07/13/21 05:18 Hemoglobin C Crystals Not Reportable 07/13/21 05:18 Schistocytes Not Reportable 07/13/21 05:18 Malaria parasites Not Reportable 07/13/21 05:18 Jonn Bodies Not Reportable 07/13/21 05:18 Hem Pathologist Commnt No 07/13/21 05:18 PT 17.1 Sec. (12.2-14.9) H 07/13/21 23:57 INR 1.34 (0.87-1.13) H 07/13/21 23:57 APTT 60.0 Sec. (24.2-36.6) H 07/13/21 23:57 D-Dimer > 43097 ng/mlDDU (0-234) H 07/15/21 04:45 ABG pH 7.452 (7.320-7.450) H 07/15/21 10:22 POC ABG pCO2 30.6 mmHg (32.0-48.0) L 07/15/21 10:22 POC ABG pO2 59.5 mmHg (83-108) L 07/15/21 10:22 POC ABG HCO3 20.9 07/15/21 10:22 ABG O2 Saturation 92.2 (0-100) 07/15/21 10:22 POC ABG Base Excess -2.0 07/15/21 10:22 ABG Hemoglobin 13.9 (12.0-17.5) 07/15/21 10:22 ABG Oxyhemoglobin 91.2 (94-98) L 07/15/21 10:22 ABG Methemoglobin 0.3 (0.0-1.5) 07/15/21 10:22 ABG Sodium 154.0 mmol/L (136.0-145.0) H 07/15/21 10:22 ABG Potassium 3.5 mmol/L (3.40-4.50) 07/15/21 10:22 ABG Chloride 124.0 mmol/L (98-107) H 07/15/21 10:22 ABG Glucose 174 mg/dL (65-95) H 07/15/21 10:22 VBG pH 7.170 (7.320-7.420) L* 07/12/21 20:38 Carboxyhemoglobin 0.8 (0.5-1.5) 07/15/21 10:22 FiO2 % 100.0 07/15/21 10:22 Sodium 159 mmol/L (137-145) H 07/15/21 04:45 Potassium 3.7 mmol/L (3.6-5.0) 07/15/21 04:45 Chloride 126.8 mmol/L (98-107) H 07/15/21 04:45 Carbon Dioxide 23 mmol/L (22-30) 07/15/21 04:45 Anion Gap 13 mmol/L 07/15/21 04:45 BUN 31 mg/dL (9-20) H 07/15/21 04:45 Creatinine 1.0 mg/dL (0.8-1.3) 07/15/21 04:45 Estimated GFR > 60 ml/min 07/15/21 04:45 BUN/Creatinine Ratio 31 % 07/15/21 04:45 Glucose 94 mg/dL (75-100) 07/15/21 04:45 POC Glucose 179 mg/dL (70-105) H 07/15/21 11:57 Hemoglobin A1c 16.5 % (4-6) H 07/14/21 05:30 Ketones Quantitative Moderate (Negative) 07/12/21 20:38 Lactic Acid 1.90 mmol/L (0.7-2.0) 07/12/21 20:38 Calcium 8.9 mg/dL (8.4-10.2) 07/15/21 04:45 Phosphorus 6.00 mg/dL (2.5-4.5) H 07/12/21 23:14 Magnesium 3.00 mg/dL (1.7-2.3) H 07/12/21 23:14 Ferritin > 2000.0 ng/mL (30.0-300.0) H 07/15/21 04:45 Total Bilirubin 0.60 mg/dL (0.1-1.2) 07/15/21 04:45 AST 64 units/L (5-40) H 07/15/21 04:45 ALT 21 units/L (7-56) 07/15/21 04:45 Alkaline Phosphatase 137 units/L (35-129) H 07/15/21 04:45 Ammonia 45.0 umol/L (25-60) 07/12/21 20:38 Lactate Dehydrogenase 1125 units/L (91-180) H 07/15/21 04:45 Total Creatine Kinase 372 units/L (55-170) H 07/12/21 20:38 Troponin T < 0.010 ng/mL (0.00-0.029) 07/12/21 20:38 C-Reactive Protein 12.10 mg/dL (0.00-1.30) H 07/15/21 04:45 Total Protein 5.6 g/dL (6.3-8.2) L 07/15/21 04:45 Albumin 2.4 g/dL (3.9-5) L 07/15/21 04:45 Albumin/Globulin Ratio 0.8 % 07/15/21 04:45 TSH 0.819 mlU/mL (0.270-4.200) 07/12/21 20:38 Arterial Blood Glucose 174 mg/dL (65-95) H 07/15/21 10:22 Arterial Blood Ionized Calcium 4.9 mg/dL (4.6-5.3) 07/15/21 10:22 Urine Color Straw (Yellow) 07/13/21 01:33 Urine Turbidity Clear (Clear) 07/13/21 01:33 Urine pH 5.0 (5.0-7.0) 07/13/21 01:33 Ur Specific Tilly 1.025 (1.003-1.030) 07/13/21 01:33 Urine Protein 30 mg/dl mg/dL (Negative) 07/13/21 01:33 Urine Glucose (UA) >=500 mg/dL (Negative) 07/13/21 01:33 Urine Ketones 80 mg/dL (Negative) 07/13/21 01:33 Urine Blood Mod (Negative) 07/13/21 01:33 Urine Nitrite Neg (Negative) 07/13/21 01:33 Urine Bilirubin Neg (Negative) 07/13/21 01:33 Urine Urobilinogen < 2.0 mg/dL (<2.0) 07/13/21 01:33 Ur Leukocyte Esterase Neg (Negative) 07/13/21 01:33 Urine WBC (Auto) < 1.0 /HPF (0.0-6.0) 07/13/21 01:33 Urine RBC (Auto) 1.0 /HPF (0.0-6.0) 07/13/21 01:33 U Epithel Cells (Auto) < 1.0 /HPF (0-13.0) 07/13/21 01:33 Hyaline Casts 1 /LPF 07/13/21 01:33 Urine Mucus Few /HPF 07/13/21 01:33 Salicylates < 0.3 mg/dL (2.8-20.0) L 07/12/21 20:38 Urine Opiates Screen Presumptive negative 07/13/21 01:33 Urine Methadone Screen Presumptive negative 07/13/21 01:33 Acetaminophen 5.0 ug/mL (10.0-30.0) L 07/12/21 20:38 Ur Barbiturates Screen Presumptive negative 07/13/21 01:33 Ur Phencyclidine Scrn Presumptive negative 07/13/21 01:33 Ur Amphetamines Screen Presumptive negative 07/13/21 01:33 U Benzodiazepines Scrn Presumptive negative 07/13/21 01:33 Urine Cocaine Screen Presumptive negative 07/13/21 01:33 U Marijuana (THC) Screen Presumptive negative 07/13/21 01:33 Drugs of Abuse Note Disclamer 07/13/21 01:33 Plasma/Serum Alcohol < 0.01 % (0-0.07) 07/12/21 20:38 Coronavirus (PCR) Positive (Negative) A 07/13/21 Unknown Blood Type A POSITIVE 07/12/21 20:38 Antibody Screen Negative 07/12/21 20:38 Microbiology: Microbiology 07/13/21 Unknown Urine,Clean Catch Urine Culture - Final 07/12/21 20:38 Peripheral/Venous Blood Culture - Preliminary NO GROWTH AFTER 48 HOURS 07/12/21 20:38 Peripheral/Venous Blood Culture - Preliminary NO GROWTH AFTER 48 HOURS Umanzor/IV: Voiding Method Condom Catheter Active Medications - Current Medications Current Medications: Generic Name Dose Route Start Last Admin Trade Name Freq PRN Reason Stop Dose Admin Acetaminophen 650 mg 07/12/21 22:08 Acetaminophen 325 Mg Tab PO Q4H PRN Pain MILD(1-3)/Fever >100.5/YOUNGBLOOD Albuterol/Ipratropium 1 ampul 07/13/21 02:00 07/15/21 10:01 Ipratropium/Albuterol Sulfate 3 Ml Ampul.Neb IH 1 ampul Q6HRT JESUS Administration Dexamethasone 6 mg 07/13/21 10:00 07/15/21 11:06 Dexamethasone 4 Mg/Ml Vial IV 07/22/21 10:01 6 mg DAILY JESUS Administration Dextrose 50 ml 07/14/21 07:19 Dextrose 50% In Water (25gm) 50 Ml Syringe IV Q30MIN PRN Hypoglycemia Protocol Docusate Sodium 100 mg 07/13/21 22:00 07/15/21 11:43 Docusate Sodium 100 Mg/10 Ml Oral Liqd PO Not Given BID JESUS Enoxaparin Sodium 100 mg 07/14/21 10:00 07/15/21 11:07 Enoxaparin 100 Mg/1 Ml Inj SUB-Q 100 mg Q12HR JESUS Administration Protocol Famotidine 20 mg 07/13/21 10:00 07/15/21 11:06 Famotidine 20 Mg/2 Ml Inj IV 20 mg BID JESUS Administration Hydralazine HCl 10 mg 07/13/21 21:05 Hydralazine 20 Mg/1 Ml Inj IV Q4H PRN Hypertension Hydromorphone HCl 0.5 mg 07/12/21 22:08 Hydromorphone 1 Mg/1 Ml Inj IV Q3H PRN Pain , Severe (7-10) Azithromycin 500 mg in 250 mls @ 250 mls/hr 07/12/21 23:00 07/15/21 11:06 Zithromax/Ns IV 250 mls/hr Q24HR JESUS Administration Protocol Ceftriaxone Sodium 2 gm in 100 mls @ 200 mls/hr 07/12/21 23:15 07/15/21 11:06 Rocephin/Ns 2 Gm/100 Ml IV 200 mls/hr Q24HR JESUS Administration Protocol Dextrose 1,000 mls @ 75 mls/hr 07/14/21 10:00 07/15/21 13:01 D5w IV 42 mls/hr DIRECT JESUS Administration REMDESIVIR 100 mg/ Sodium 250 mls @ 500 mls/hr 07/15/21 21:00 Chloride IV 07/18/21 21:29 Q24HR@2100 JESUS Insulin Human Isoph/Insulin Regular 25 unit 07/14/21 09:00 07/15/21 11:02 Insulin Nph/Regular 70/30 Inj SUB-Q Not Given QDDIAB JESUS Insulin Human Isoph/Insulin Regular 10 unit 07/14/21 17:00 07/14/21 18:45 Insulin Nph/Regular 70/30 Inj SUB-Q Not Given QPMDIAB [facility] Insulin Human Lispro 0 unit 07/14/21 08:00 07/15/21 13:01 Insulin Lispro 100 Unit/Ml SUB-Q 1 unit ACHS JESUS Administration Protocol Ondansetron HCl 4 mg 07/12/21 22:08 Ondansetron 4 Mg/2 Ml Inj IV Q8H PRN Nausea And Vomiting Oxycodone/Acetaminophen 1 tab 07/12/21 22:08 Oxycodone /Acetaminophen 5-325mg Tab PO Q6H PRN Pain, Moderate (4-6) Sodium Chloride 10 ml 07/13/21 10:00 07/15/21 11:07 Sodium Chloride 0.9% 10 Ml Flush Syringe IV 10 ml BID JESUS Administration Sodium Chloride 10 ml 07/12/21 22:08 Sodium Chloride 0.9% 10 Ml Flush Syringe IV PRN PRN LINE FLUSH Sodium Chloride 50 ml 07/14/21 10:00 07/14/21 10:03 Sodium Chloride 0.9% 50 Ml Ivpb IV 07/18/21 21:01 50 ml Q24HR@2100 [facility] Administration Nutrition/Malnutrition Assess - Dietary Evaluation Nutrition/Malnutrition Findings: Nutrition Notes Start: 07/13/21 10:12 Freq: Status: Active Protocol: Document 07/13/21 10:12 CHIQUITA (Rec: 07/13/21 10:15 CHIQUITA [id number]) Nutrition Notes Need for Assessment generated from: MD Order,Education Initial or Follow up Brief Note Current Diagnosis Diabetes Other Pertinent Diagnosis DKA Current Diet NPO Subjective/Other Information RD consulted for diet education. Pt in ED at this time. Nutrition Intervention Follow-Up By: 07/16/21 Additional Comments F/U: diet education needs, transfer to medical floor
[2021-07-15] MEDS: REMDESIVIR 100 MG in SODIUM CHLORIDE 0.9% 250ML 250 ML IV SCH (21:55)
[2021-07-15] MEDS: SODIUM CHLORIDE 0.9% 50 ML IVPB IV SCH (22:34)
--- NOTE | 2021-07-16 02:33 | XRay Report ---
CHEST 1 VIEW INDICATION / CLINICAL INFORMATION: covid 19 pna. Cough FINDINGS: SUPPORT DEVICES: None. HEART / MEDIASTINUM: No significant abnormality. LUNGS / PLEURA: Severe bilateral airspace pneumonia. Signer Name: Tremayne Hall MD Signed: 07/16/2021 2:29 AM Workstation Name: [id number]
[2021-07-16] MEDS: IPRATROPIUM/ALBUTEROL SULFATE 3 ML AMPUL.NEB IH SCH (05:05)
[2021-07-16 05:10] LABS: Alanine Aminotransferase 19 units/L (7-56); Albumin 2.1 g/dL (3.9-5); BUN/Creatinine Ratio 37; Blood Urea Nitrogen 37 mg/dL (9-20); Calcium 8.2 mg/dL (8.4-10.2); Hemolysis Index 8
[2021-07-16 05:12] LABS: C-Reactive Protein 21.4 mg/dL (0.00-1.30)
[2021-07-16] MEDS: DEXTROSE 5% IN WATER 1,000 ML IV SCH ×2 (06:00→17:20)
[2021-07-16] MEDS ORDERED: ALBUTEROL 8.5 GM MDI INHALATION IH PRN (06:28)
--- NOTE | 2021-07-16 08:52 | Progress Note ---
Assessment and Plan Assessment and plan: Assessment and plan: This 66-year-old male with DM admitted as a COVID-19 PUI with DKA Neuro: Acute metabolic encephalopathy -07/09 CT head-> focal hypodense areas in left frontal lobe and right superior lobe. Radiology recommended MRI -Avoid delirium -Aspiration/fall precautions -Neuro consulted, appreciate recommendations -MRI brain pending, patient currently too unstable for MRI Cardio: ST -Blood Pressure monitoring per protocol -As needed hydralazine -Echo pending Respiratory: Rule out PE, acute hypoxic respiratory failure -Patient is on high flow nasal cannula with Venturi mask overlying. May need to escalate to BiPAP Would benefit from proning however he is restrained currently. -CCM consulted, appreciate recs -CTA chest pending -Supplemental oxygen as needed -Pulmonary hygiene GI: N.p.o. -Patient cleared for p.o. intake but will require pured diet. -BR: Colace -PPI : LUIS M 2/2 vasomotor nephropathy (resolving), hypernatremia, hyper chloremia, high anion gap metabolic acidosis, -Presented with a BUN/creatinine 1.5/50 but now trending down -Strict intake and output -Renally dose medications -Avoid nephrotoxic medication -Consider nephrology work-up if worsening Hypotonic fluids for now. Heme: Leukocytosis, DVT -BLE Dopplar US shows acute occlusive DVT noted in the posterior tibial vein and peroneal vein -Started on heparin drip but now switched to lovenox -SCDs to bilateral LE while in bed -Trend CBC Endo: s/p DKA, h/o DM (noncompliant per family) -s/p DKA protocol -Hemaglobin A1C 16.5 -CC diet when appropriate -avoid hypoglycemia -SSI with long acting insulin Lantus 20 units nightly Regular insulin 5 units ACHS Given patient elevated blood sugars and anion gap metabolic acidosis, may need to consider restarting insulin drip. Will reevaluate. ID: COVID-19 PNA -COVID-19 PCR positive -Infectious disease consulted, appreciate recommendations -Currently on empiric antibiotics -Patient started on dexamethasone (07/13-07/22) -Redesivir (07/14-07/18) -Isolation/droplet precautions -Prone as tolerated -Trend COVID-19 inflammatory markers -Anticoagulation per protocol -Pulmonary hygiene -SPO2 monitoring -Follow culture data -Prone as tolerated Hospital course to date 07/15/2021: Continuing therapy with steroids, remdesivir, antibiotics for now. Patient remains on high flow nasal cannula with flow rate 40 L/min and FiO2 100%. Will attempt to reach out to family today. 07/16/2021: Continue Covid standard therapy, once patient is out of restraints can consider starting proning. Has high flow nasal cannula with overlying Ventimask. Saturating at 90%. Some concern with confusion. Would like MRI completed however this will be challenging due to poor oxygen status. Blood sugar is also considerably elevated today. Will change insulin regimen to Lantus and scheduled regular insulin. Unfortunately since patient still hypernatremic hyperchloremic will require hypotonic fluid in the form of D5W. If blood sugar becomes challenging to control may need to restart insulin drip ------ The high probability of a clinically significant, sudden or life threatening deterioration of the [pulm,ID,endo] system(s) required my full and direct attention, intervention and personal management. The aggregate critical care time was [60] minutes. This time is in addition to time spent performing repor margie procedures but includes the following: [x] Data Review and interpretation [x] Patient assessment and monitoring of vital signs [x] Documentation [x] Medication orders and management Disposition Plan: icu Total Time Spent with Patient (Minutes): 60 History Interval history: No overnight events. Patient has no acute complaints. He is still slightly confused however able to recall his name and location and the date. He is a little confused about current events or why he is in the hospital. COMB SETTER concerned about patient pulling IVs and respiratory equipment necessary to keep patient stable. Hospitalist Physical - Physical exam Narrative exam: General appearance: Present: mild distress, well-nourished, obese - EENT Eyes: Present: PERRL, EOM intact ENT: hearing intact, clear oral mucosa - Neck Neck: Present: supple, normal ROM - Respiratory Respiratory effort: normal Respiratory: bilateral: diminished - Cardiovascular Rhythm: regular Heart Sounds: Present: S1 & S2. Absent: systolic murmur, diastolic murmur - Extremities Extremities: no ischemia, pulses intact, pulses symmetrical, No edema, normal temperature, normal color, Full ROM Peripheral Pulses: within normal limits - Abdominal General gastrointestinal: soft, non-tender, non-distended, normal bowel sounds - Integumentary Integumentary: Present: warm, dry. Please refer to full assessment in nursing note. - Psychiatric Psychiatric: appropriate mood/affect, cooperative - Neurologic Neurologic: CNII-XII intact, moves all extremities - Allied Health Allied health notes reviewed: nursing, social work - Constitutional Vitals: Temp Pulse Resp BP Pulse Ox 97.8 F 100 H 16 99/66 93 07/16/21 07:00 07/16/21 06:30 07/16/21 06:30 07/16/21 06:30 07/16/21 07:42 General appearance: Present: mild distress, well-nourished, obese HEART Score - HEART Score Troponin: Troponin T < 0.010 ng/mL (0.00-0.029) 07/12/21 20:38 Results - Labs CBC & Chem 7: 07/15/21 04:45 07/16/21 04:15 Labs: Laboratory Last Values WBC 12.1 K/mm3 (4.5-11.0) H 07/15/21 04:45 RBC 4.38 M/mm3 (3.65-5.03) 07/15/21 04:45 Hgb 13.6 gm/dl (11.8-15.2) 07/15/21 04:45 Hct 38.6 % (35.5-45.6) 07/15/21 04:45 MCV 88 fl (84-94) 07/15/21 04:45 MCH 31 pg (28-32) 07/15/21 04:45 MCHC 35 % (32-34) H 07/15/21 04:45 RDW 14.0 % (13.2-15.2) 07/15/21 04:45 Plt Count 97 K/mm3 (140-440) L 07/15/21 04:45 Add Manual Diff Complete 07/13/21 05:18 Total Counted 100 07/13/21 05:18 Seg Neutrophils % Mold Carpenter 07/13/21 05:18 Seg Neuts % (Manual) 86.0 % (40.0-70.0) H 07/13/21 05:18 Band Neutrophils % 9.0 % 07/13/21 05:18 Lymphocytes % (Manual) 4.0 % (13.4-35.0) L 07/13/21 05:18 Monocytes % (Manual) 3.0 % (0.0-7.3) 07/12/21 20:38 Myelocytes % 1.0 % 07/13/21 05:18 Nucleated RBC % Not Reportable 07/13/21 05:18 Seg Neutrophils # Man 12.1 K/mm3 (1.8-7.7) H 07/13/21 05:18 Band Neutrophils # 1.3 K/mm3 07/13/21 05:18 Lymphocytes # (Manual) 0.6 K/mm3 (1.2-5.4) L 07/13/21 05:18 Abs React Lymphs (Man) 0.0 K/mm3 07/13/21 05:18 Monocytes # (Manual) 0.0 K/mm3 (0.0-0.8) 07/13/21 05:18 Eosinophils # (Manual) 0.0 K/mm3 (0.0-0.4) 07/13/21 05:18 Basophils # (Manual) 0.0 K/mm3 (0.0-0.1) 07/13/21 05:18 Metamyelocytes # 0.0 K/mm3 07/13/21 05:18 Myelocytes # 0.1 K/mm3 07/13/21 05:18 Promyelocytes # 0.0 K/mm3 07/13/21 05:18 Blast Cells # 0.0 K/mm3 07/13/21 05:18 WBC Morphology Not Reportable 07/13/21 05:18 Hypersegmented Neuts Not Reportable 07/13/21 05:18 Hyposegmented Neuts Not Reportable 07/13/21 05:18 Hypogranular Neuts Not Reportable 07/13/21 05:18 Smudge Cells Not Reportable 07/13/21 05:18 Toxic Granulation Not Reportable 07/13/21 05:18 Toxic Vacuolation Not Reportable 07/13/21 05:18 Dohle Bodies Not Reportable 07/13/21 05:18 Pelger-Huet Anomaly Not Reportable 07/13/21 05:18 Isha Rods Not Reportable 07/13/21 05:18 Platelet Estimate Consistent w auto 07/13/21 05:18 Clumped Platelets Not Reportable 07/13/21 05:18 Plt Clumps, EDTA Not Reportable 07/13/21 05:18 Large Platelets Not Reportable 07/13/21 05:18 Giant Platelets Not Reportable 07/13/21 05:18 Platelet Satelliting Not Reportable 07/13/21 05:18 Plt Morphology Comment Not Reportable 07/13/21 05:18 RBC Morphology Normal 07/13/21 05:18 Dimorphic RBCs Not Reportable 07/13/21 05:18 Polychromasia Not Reportable 07/13/21 05:18 Hypochromasia Not Reportable 07/13/21 05:18 Poikilocytosis Not Reportable 07/13/21 05:18 Anisocytosis Not Reportable 07/13/21 05:18 Microcytosis Not Reportable 07/13/21 05:18 Macrocytosis Not Reportable 07/13/21 05:18 Spherocytes Not Reportable 07/13/21 05:18 Pappenheimer Bodies Not Reportable 07/13/21 05:18 Sickle Cells Not Reportable 07/13/21 05:18 Target Cells Not Reportable 07/13/21 05:18 Tear Drop Cells Not Reportable 07/13/21 05:18 Ovalocytes Not Reportable 07/13/21 05:18 Helmet Cells Not Reportable 07/13/21 05:18 [place] Bodies Not Reportable 07/13/21 05:18 [place] Rings Not Reportable 07/13/21 05:18 [place] Cells Not Reportable 07/13/21 05:18 Bite Cells Not Reportable 07/13/21 05:18 Crenated Cell Not Reportable 07/13/21 05:18 Elliptocytes Not Reportable 07/13/21 05:18 Acanthocytes (Spur) Not Reportable 07/13/21 05:18 Rouleaux Not Reportable 07/13/21 05:18 Hemoglobin C Crystals Not Reportable 07/13/21 05:18 Schistocytes Not Reportable 07/13/21 05:18 Malaria parasites Not Reportable 07/13/21 05:18 Jonn Bodies Not Reportable 07/13/21 05:18 Hem Pathologist Commnt No 07/13/21 05:18 PT 17.1 Sec. (12.2-14.9) H 07/13/21 23:57 INR 1.34 (0.87-1.13) H 07/13/21 23:57 APTT 60.0 Sec. (24.2-36.6) H 07/13/21 23:57 D-Dimer > 31306 ng/mlDDU (0-234) H 07/16/21 04:15 ABG pH 7.452 (7.320-7.450) H 07/15/21 10:22 POC ABG pCO2 30.6 mmHg (32.0-48.0) L 07/15/21 10:22 POC ABG pO2 59.5 mmHg (83-108) L 07/15/21 10:22 POC ABG HCO3 20.9 07/15/21 10:22 ABG O2 Saturation 92.2 (0-100) 07/15/21 10:22 POC ABG Base Excess -2.0 07/15/21 10:22 ABG Hemoglobin 13.9 (12.0-17.5) 07/15/21 10:22 ABG Oxyhemoglobin 91.2 (94-98) L 07/15/21 10:22 ABG Methemoglobin 0.3 (0.0-1.5) 07/15/21 10:22 ABG Sodium 154.0 mmol/L (136.0-145.0) H 07/15/21 10:22 ABG Potassium 3.5 mmol/L (3.40-4.50) 07/15/21 10:22 ABG Chloride 124.0 mmol/L (98-107) H 07/15/21 10:22 ABG Glucose 174 mg/dL (65-95) H 07/15/21 10:22 VBG pH 7.170 (7.320-7.420) L* 07/12/21 20:38 Carboxyhemoglobin 0.8 (0.5-1.5) 07/15/21 10:22 FiO2 % 100.0 07/15/21 10:22 Sodium 156 mmol/L (137-145) H 07/16/21 04:15 Potassium 3.9 mmol/L (3.6-5.0) 07/16/21 04:15 Chloride 121.1 mmol/L (98-107) H 07/16/21 04:15 Carbon Dioxide 23 mmol/L (22-30) 07/16/21 04:15 Anion Gap 16 mmol/L 07/16/21 04:15 BUN 37 mg/dL (9-20) H 07/16/21 04:15 Creatinine 1.0 mg/dL (0.8-1.3) 07/16/21 04:15 Estimated GFR > 60 ml/min 07/16/21 04:15 BUN/Creatinine Ratio 37 % 07/16/21 04:15 Glucose 318 mg/dL (75-100) H 07/16/21 04:15 POC Glucose 330 mg/dL (70-105) H 07/16/21 07:20 Hemoglobin A1c 16.5 % (4-6) H 07/14/21 05:30 Ketones Quantitative Moderate (Negative) 07/12/21 20:38 Lactic Acid 1.90 mmol/L (0.7-2.0) 07/12/21 20:38 Calcium 8.2 mg/dL (8.4-10.2) L 07/16/21 04:15 Phosphorus 6.00 mg/dL (2.5-4.5) H 07/12/21 23:14 Magnesium 3.00 mg/dL (1.7-2.3) H 07/12/21 23:14 Ferritin 2932.0 ng/mL (30.0-300.0) H 07/16/21 04:15 Total Bilirubin 0.40 mg/dL (0.1-1.2) 07/16/21 04:15 AST 40 units/L (5-40) 07/16/21 04:15 ALT 19 units/L (7-56) 07/16/21 04:15 Alkaline Phosphatase 133 units/L (35-129) H 07/16/21 04:15 Ammonia 45.0 umol/L (25-60) 07/12/21 20:38 Lactate Dehydrogenase 920 units/L (91-180) H 07/16/21 04:15 Total Creatine Kinase 372 units/L (55-170) H 07/12/21 20:38 Troponin T < 0.010 ng/mL (0.00-0.029) 07/12/21 20:38 C-Reactive Protein 21.40 mg/dL (0.00-1.30) H 07/16/21 04:15 Total Protein 5.0 g/dL (6.3-8.2) L 07/16/21 04:15 Albumin 2.1 g/dL (3.9-5) L 07/16/21 04:15 Albumin/Globulin Ratio 0.7 % 07/16/21 04:15 TSH 0.819 mlU/mL (0.270-4.200) 07/12/21 20:38 Arterial Blood Glucose 174 mg/dL (65-95) H 07/15/21 10:22 Arterial Blood Ionized Calcium 4.9 mg/dL (4.6-5.3) 07/15/21 10:22 Urine Color Straw (Yellow) 07/13/21 01:33 Urine Turbidity Clear (Clear) 07/13/21 01:33 Urine pH 5.0 (5.0-7.0) 07/13/21 01:33 Ur Specific [place] 1.025 (1.003-1.030) 07/13/21 01:33 Urine Protein 30 mg/dl mg/dL (Negative) 07/13/21 01:33 Urine Glucose (UA) >=500 mg/dL (Negative) 07/13/21 01:33 Urine Ketones 80 mg/dL (Negative) 07/13/21 01:33 Urine Blood Mod (Negative) 07/13/21 01:33 Urine Nitrite Neg (Negative) 07/13/21 01:33 Urine Bilirubin Neg (Negative) 07/13/21 01:33 Urine Urobilinogen < 2.0 mg/dL (<2.0) 07/13/21 01:33 Ur Leukocyte Esterase Neg (Negative) 07/13/21 01:33 Urine WBC (Auto) < 1.0 /HPF (0.0-6.0) 07/13/21 01:33 Urine RBC (Auto) 1.0 /HPF (0.0-6.0) 07/13/21 01:33 U Epithel Cells (Auto) < 1.0 /HPF (0-13.0) 07/13/21 01:33 Hyaline Casts 1 /LPF 07/13/21 01:33 Urine Mucus Few /HPF 07/13/21 01:33 Salicylates < 0.3 mg/dL (2.8-20.0) L 07/12/21 20:38 Urine Opiates Screen Presumptive negative 07/13/21 01:33 Urine Methadone Screen Presumptive negative 07/13/21 01:33 Acetaminophen 5.0 ug/mL (10.0-30.0) L 07/12/21 20:38 Ur Barbiturates Screen Presumptive negative 07/13/21 01:33 Ur Phencyclidine Scrn Presumptive negative 07/13/21 01:33 Ur Amphetamines Screen Presumptive negative 07/13/21 01:33 U Benzodiazepines Scrn Presumptive negative 07/13/21 01:33 Urine Cocaine Screen Presumptive negative 07/13/21 01:33 U Marijuana (THC) Screen Presumptive negative 07/13/21 01:33 Drugs of Abuse Note Disclamer 07/13/21 01:33 Plasma/Serum Alcohol < 0.01 % (0-0.07) 07/12/21 20:38 Coronavirus (PCR) Positive (Negative) A 07/13/21 Unknown Blood Type A POSITIVE 07/12/21 20:38 Antibody Screen Negative 07/12/21 20:38 Microbiology: Microbiology 07/12/21 20:38 Peripheral/Venous Blood Culture - Preliminary NO GROWTH AFTER 72 HOURS 07/12/21 20:38 Peripheral/Venous Blood Culture - Preliminary NO GROWTH AFTER 72 HOURS 07/13/21 Unknown Urine,Clean Catch Urine Culture - Final Umanzor/IV: Voiding Method Condom Catheter Active Medications - Current Medications Current Medications: Generic Name Dose Route Start Last Admin Trade Name Freq PRN Reason Stop Dose Admin Acetaminophen 650 mg 07/12/21 22:08 Acetaminophen 325 Mg Tab PO Q4H PRN Pain MILD(1-3)/Fever >100.5/YOUNGBLOOD Albuterol 2 puff 07/16/21 06:28 Albuterol 8.5 Gm Mdi Inhalation IH Q4HRT PRN Shortness Of Breath Dexamethasone 6 mg 07/13/21 10:00 07/15/21 11:06 Dexamethasone 4 Mg/Ml Vial IV 07/22/21 10:01 6 mg DAILY JESUS Administration Dextrose 50 ml 07/14/21 07:19 Dextrose 50% In Water (25gm) 50 Ml Syringe IV Q30MIN PRN Hypoglycemia Protocol Docusate Sodium 100 mg 07/13/21 22:00 07/15/21 22:37 Docusate Sodium 100 Mg/10 Ml Oral Liqd PO Not Given BID JESUS Enoxaparin Sodium 100 mg 07/14/21 10:00 07/15/21 22:36 Enoxaparin 100 Mg/1 Ml Inj SUB-Q Not Given Q12HR JESUS Protocol Famotidine 20 mg 07/13/21 10:00 07/15/21 22:34 Famotidine 20 Mg/2 Ml Inj IV 20 mg BID JESUS Administration Hydralazine HCl 10 mg 07/13/21 21:05 Hydralazine 20 Mg/1 Ml Inj IV Q4H PRN Hypertension Hydromorphone HCl 0.5 mg 07/12/21 22:08 Hydromorphone 1 Mg/1 Ml Inj IV Q3H PRN Pain , Severe (7-10) Azithromycin 500 mg in 250 mls @ 250 mls/hr 07/12/21 23:00 07/15/21 11:06 Zithromax/Ns IV 250 mls/hr Q24HR JESUS Administration Protocol Ceftriaxone Sodium 2 gm in 100 mls @ 200 mls/hr 07/12/21 23:15 07/15/21 11:06 Rocephin/Ns 2 Gm/100 Ml IV 200 mls/hr Q24HR JESUS Administration Protocol Dextrose 1,000 mls @ 75 mls/hr 07/14/21 10:00 07/16/21 06:00 D5w IV 42 mls/hr DIRECT JESUS Administration REMDESIVIR 100 mg/ Sodium 250 mls @ 500 mls/hr 07/15/21 21:00 07/15/21 21:55 Chloride IV 07/18/21 21:29 500 mls/hr Q24HR@2100 JESUS Administration Insulin Human Isoph/Insulin Regular 25 unit 07/14/21 09:00 07/15/21 11:02 Insulin Nph/Regular 70/30 Inj SUB-Q Not Given QDDIAB [facility] Insulin Human Isoph/Insulin Regular 10 unit 07/14/21 17:00 07/15/21 16:46 Insulin Nph/Regular 70/30 Inj SUB-Q 10 unit QPMDIAB JESUS Administration Insulin Human Lispro 0 unit 07/14/21 08:00 07/15/21 16:46 Insulin Lispro 100 Unit/Ml SUB-Q 3 unit ACHS JESUS Administration Protocol Ondansetron HCl 4 mg 07/12/21 22:08 Ondansetron 4 Mg/2 Ml Inj IV Q8H PRN Nausea And Vomiting Oxycodone/Acetaminophen 1 tab 07/12/21 22:08 Oxycodone /Acetaminophen 5-325mg Tab PO Q6H PRN Pain, Moderate (4-6) Sodium Chloride 10 ml 07/13/21 10:00 07/15/21 22:37 Sodium Chloride 0.9% 10 Ml Flush Syringe IV Not Given BID JESUS Sodium Chloride 10 ml 07/12/21 22:08 Sodium Chloride 0.9% 10 Ml Flush Syringe IV PRN PRN LINE FLUSH Sodium Chloride 50 ml 07/14/21 10:00 07/15/21 22:34 Sodium Chloride 0.9% 50 Ml Ivpb IV 07/18/21 21:01 Not Given Q24HR@2100 [facility] Nutrition/Malnutrition Assess - Dietary Evaluation Nutrition/Malnutrition Findings: Nutrition Notes Start: 07/13/21 10:12 Freq: Status: Active Protocol: Document 07/13/21 10:12 CHIQUITA (Rec: 07/13/21 10:15 [facility] [id number]) Nutrition Notes Need for Assessment generated from: MD Order,Education Initial or Follow up Brief Note Current Diagnosis Diabetes Other Pertinent Diagnosis DKA Current Diet NPO Subjective/Other Information RD consulted for diet education. Pt in ED at this time. Nutrition Intervention Follow-Up By: 07/16/21 Additional Comments F/U: diet education needs, transfer to medical floor
[2021-07-16] MEDS: INSULIN LISPRO 100 UNIT/ML SUB-Q SCH ×5 (08:56→22:22)
[2021-07-16] MEDS: FAMOTIDINE 20 MG/2 ML INJ IV SCH ×2 (09:00→21:53)
[2021-07-16] MEDS: dexAMETHasone 4 MG/ML VIAL IV SCH (09:00)
[2021-07-16] MEDS: cefTRIAXone/NS 2 GM/100 ML 2 GM/100 ML BAG IV SCH (09:01)
[2021-07-16] MEDS: AZITHROMYCIN/NS 500 MG/250 ML 500 MG/250 ML BAG IV SCH (09:08)
[2021-07-16] MEDS: ENOXAPARIN 100 MG/1 ML INJ SUB-Q SCH ×2 (11:11→21:52)
[2021-07-16] MEDS: DOCUSATE SODIUM 100 MG/10 ML ORAL LIQD PO SCH ×2 (11:55→22:22)
[2021-07-16] MEDS: INSULIN REGULAR, HUMAN 100 UNITS/1 ML SUB-Q SCH ×3 (12:09→22:22)
--- NOTE | 2021-07-16 13:20 | Progress Note ---
Assessment and Plan 66 y/o male, initially admitted as DKA, found to be hypoxic in ED and then COVID positive now with persistent/worsening respiratory failure. 1. Remdesivir and IV steroids 2. Tight blood sugar control 3. Agree with full dose anticoagulation 4. Prone as tolerated if possible 5. Monitor fluid balance. Guarded prognosis. Subjective Date of service: 07/16/21 Interval history: No acute events. Still on HFNC and NRB combo with sat holding at 88%. Mental status is unchanged. Spoke with nursing and there is a daughter. Currently the patient lives with his sister. Objective - Constitutional Vitals: Vital Signs - 12hr 07/16/21 07/16/21 07/16/21 01:30 02:00 02:30 Temperature Pulse Rate 110 H 101 H 97 H Pulse Rate [ Right Dorsalis Pedis] Respiratory 21 24 21 Rate Blood Pressure 81/58 129/70 129/70 O2 Sat by Pulse 82 L 93 93 Oximetry 07/16/21 07/16/21 07/16/21 03:00 03:30 04:00 Temperature 97.6 F Pulse Rate 100 H 93 H 100 H Pulse Rate [ Right Dorsalis Pedis] Respiratory 21 18 20 Rate Blood Pressure 99/61 99/61 107/59 O2 Sat by Pulse 96 93 93 Oximetry 07/16/21 07/16/21 07/16/21 04:30 05:00 05:30 Temperature Pulse Rate 100 H 102 H 98 H Pulse Rate [ Right Dorsalis Pedis] Respiratory 21 20 20 Rate Blood Pressure 107/59 100/67 100/67 O2 Sat by Pulse 93 89 93 Oximetry 07/16/21 07/16/21 07/16/21 06:00 06:30 07:00 Temperature 97.8 F Pulse Rate 96 H 100 H 95 H Pulse Rate [ Right Dorsalis Pedis] Respiratory 19 16 17 Rate Blood Pressure 99/66 99/66 120/74 O2 Sat by Pulse 90 92 90 Oximetry 07/16/21 07/16/21 07/16/21 07:30 07:42 08:00 Temperature Pulse Rate 95 H 101 H Pulse Rate [ 101 H Right Dorsalis Pedis] Respiratory 17 17 Rate Blood Pressure 120/74 125/80 O2 Sat by Pulse 89 93 94 Oximetry 07/16/21 07/16/21 07/16/21 08:31 09:00 09:31 Temperature Pulse Rate 96 H 98 H 107 H Pulse Rate [ Right Dorsalis Pedis] Respiratory 18 19 17 Rate Blood Pressure 132/79 132/79 O2 Sat by Pulse 92 91 91 Oximetry 07/16/21 07/16/21 07/16/21 10:00 10:31 11:00 Temperature Pulse Rate 107 H 102 H 103 H Pulse Rate [ Right Dorsalis Pedis] Respiratory 20 20 23 Rate Blood Pressure 135/72 135/72 121/67 O2 Sat by Pulse 90 91 85 Oximetry 07/16/21 11:49 Temperature 97.9 F Pulse Rate Pulse Rate [ Right Dorsalis Pedis] Respiratory Rate Blood Pressure O2 Sat by Pulse Oximetry - Labs CBC & Chem 7: 07/15/21 04:45 07/16/21 04:15 Labs: Abnormal lab results 07/15/21 07/15/21 07/16/21 Range/Units 16:43 21:44 04:15 D-Dimer (0-234) ng/mlDDU Sodium 156 H (137-145) mmol/L Chloride 121.1 H (98-107) mmol/L BUN 37 H (9-20) mg/dL Glucose 318 H (75-100) mg/dL POC Glucose 251 H 297 H (70-105) mg/dL Calcium 8.2 L (8.4-10.2) mg/dL Ferritin (30.0-300.0) ng/mL Alkaline Phosphatase 133 H (35-129) units/L Lactate Dehydrogenase (91-180) units/L C-Reactive Protein (0.00-1.30) mg/dL Total Protein 5.0 L (6.3-8.2) g/dL Albumin 2.1 L (3.9-5) g/dL 07/16/21 07/16/21 07/16/21 Range/Units 04:15 04:15 04:15 D-Dimer > 09493 H (0-234) ng/mlDDU Sodium (137-145) mmol/L Chloride (98-107) mmol/L BUN (9-20) mg/dL Glucose (75-100) mg/dL POC Glucose (70-105) mg/dL Calcium (8.4-10.2) mg/dL Ferritin 2932.0 H (30.0-300.0) ng/mL Alkaline Phosphatase (35-129) units/L Lactate Dehydrogenase 920 H (91-180) units/L C-Reactive Protein 21.40 H (0.00-1.30) mg/dL Total Protein (6.3-8.2) g/dL Albumin (3.9-5) g/dL 07/16/21 07/16/21 Range/Units 07:20 11:30 D-Dimer (0-234) ng/mlDDU Sodium (137-145) mmol/L Chloride (98-107) mmol/L BUN (9-20) mg/dL Glucose (75-100) mg/dL POC Glucose 330 H 363 H (70-105) mg/dL Calcium (8.4-10.2) mg/dL Ferritin (30.0-300.0) ng/mL Alkaline Phosphatase (35-129) units/L Lactate Dehydrogenase (91-180) units/L C-Reactive Protein (0.00-1.30) mg/dL Total Protein (6.3-8.2) g/dL Albumin (3.9-5) g/dL Medications & Allergies - Medications Allergies/Adverse Reactions: Allergies Unable to Assess Allergy (Verified 07/12/21 22:40) pt cannot answer Active Medications: Generic Name Dose Route Start Last Admin Trade Name Freq PRN Reason Stop Dose Admin Acetaminophen 650 mg 07/12/21 22:08 Acetaminophen 325 Mg Tab PO Q4H PRN Pain MILD(1-3)/Fever >100.5/YOUNGBLOOD Albuterol 2 puff 07/16/21 06:28 Albuterol 8.5 Gm Mdi Inhalation IH Q4HRT PRN Shortness Of Breath Dexamethasone 6 mg 07/13/21 10:00 07/16/21 09:00 Dexamethasone 4 Mg/Ml Vial IV 07/22/21 10:01 6 mg DAILY JESUS Administration Dextrose 50 ml 07/14/21 07:19 Dextrose 50% In Water (25gm) 50 Ml Syringe IV Q30MIN PRN Hypoglycemia Protocol Docusate Sodium 100 mg 07/13/21 22:00 07/16/21 11:55 Docusate Sodium 100 Mg/10 Ml Oral Liqd PO Not Given BID JESUS Enoxaparin Sodium 100 mg 07/14/21 10:00 07/16/21 11:11 Enoxaparin 100 Mg/1 Ml Inj SUB-Q 100 mg Q12HR JESUS Administration Protocol Famotidine 20 mg 07/13/21 10:00 07/16/21 09:00 Famotidine 20 Mg/2 Ml Inj IV 20 mg BID JESUS Administration Hydralazine HCl 10 mg 07/13/21 21:05 Hydralazine 20 Mg/1 Ml Inj IV Q4H PRN Hypertension Hydromorphone HCl 0.5 mg 07/12/21 22:08 Hydromorphone 1 Mg/1 Ml Inj IV Q3H PRN Pain , Severe (7-10) Azithromycin 500 mg in 250 mls @ 250 mls/hr 07/12/21 23:00 07/16/21 09:08 Zithromax/Ns IV 250 mls/hr Q24HR JESUS Administration Protocol Ceftriaxone Sodium 2 gm in 100 mls @ 200 mls/hr 07/12/21 23:15 07/16/21 09:01 Rocephin/Ns 2 Gm/100 Ml IV 200 mls/hr Q24HR JESUS Administration Protocol Dextrose 1,000 mls @ 75 mls/hr 07/14/21 10:00 07/16/21 06:00 D5w IV 42 mls/hr DIRECT JESUS Administration REMDESIVIR 100 mg/ Sodium 250 mls @ 500 mls/hr 07/15/21 21:00 07/15/21 21:55 Chloride IV 07/18/21 21:29 500 mls/hr Q24HR@2100 JESUS Administration Insulin Glargine 20 units 07/16/21 22:00 Insulin Glargine 100 Units/Ml SUB-Q QHS [facility] Insulin Human Lispro 0 unit 07/14/21 08:00 07/16/21 12:10 Insulin Lispro 100 Unit/Ml SUB-Q 5 unit ACHS [facility] Administration Protocol Insulin Human Regular 5 units 07/16/21 11:30 07/16/21 12:09 Insulin Regular, Human 100 Units/1 Ml SUB-Q 5 units ACHS JESUS Administration Ondansetron HCl 4 mg 07/12/21 22:08 Ondansetron 4 Mg/2 Ml Inj IV Q8H PRN Nausea And Vomiting Oxycodone/Acetaminophen 1 tab 07/12/21 22:08 Oxycodone /Acetaminophen 5-325mg Tab PO Q6H PRN Pain, Moderate (4-6) Sodium Chloride 10 ml 07/13/21 10:00 07/16/21 09:01 Sodium Chloride 0.9% 10 Ml Flush Syringe IV 10 ml BID JESUS Administration Sodium Chloride 10 ml 07/12/21 22:08 Sodium Chloride 0.9% 10 Ml Flush Syringe IV PRN PRN LINE FLUSH Sodium Chloride 50 ml 07/14/21 10:00 07/15/21 22:34 Sodium Chloride 0.9% 50 Ml Ivpb IV 07/18/21 21:01 Not Given [id number] [facility] HEART Score - HEART Score Troponin: Troponin T < 0.010 ng/mL (0.00-0.029) 07/12/21 20:38
--- NOTE | 2021-07-16 13:47 | Progress Note ---
Assessment and Plan Cultures: SARS CoV2 PCR: Positive 07/12/2021 blood culture: No growth A/P: 66/M with diabetes admitted with DKA: #COVID-19 pneumonia: D-dimer >10,000, , CRP 6.3, ferritin 3041, LDH 842. #Acute hypoxic respiratory failure: Secondary to COVID-19 #Acute DKA, uncontrolled DM: HbA1c 16.5 #Acute encephalopathy #Bilateral lower extremity acute DVT: On anticoagulation Recs: -Received Tocilizumab 07/15/2021 -continue IV remdesivir x 5 days -Continue steroids -Follow-up procalcitonin, if low, discontinue antibiotics (stop at 5 days) -anticoagulation for b/l acute DVT ID will sign off. Please reconsult if needed. Ally Barron MD, FACP [facility] ([facility]) O: [phone] F: [phone] Subjective Date of service: 07/16/21 Interval history: Afebrile. Remains on high flow nasal cannula and NRB, 40 L/min. Objective - Exam Narrative Exam: Physical Exam (reviewed in chart to minimize risk of transmission) Constitutional: deferred Head, Ears, Nose: deferred Eyes: deferred Neck: deferred Oral: deferred Cardiovascular: deferred Respiratory: deferred GI: deferred Musculoskeletal: deferred Skin: deferred Hem/Lymphatic: deferred Psych: deferred Neurological: deferred - Constitutional Vitals: Vital Signs Temp Pulse Resp BP Pulse Ox 97.9 F 103 H 23 121/67 85 07/16/21 11:49 07/16/21 11:00 07/16/21 11:00 07/16/21 11:00 07/16/21 11:00 Temperature -Last 24 Hours Temperature 97.9 F Temperature 97.8 F Temperature 97.6 F Temperature 98.6 F Temperature 98.2 F Temperature 98.3 F - Labs CBC & Chem 7: 07/15/21 04:45 07/16/21 04:15 Labs: Abnormal lab results 07/15/21 07/15/21 07/16/21 Range/Units 16:43 21:44 04:15 D-Dimer (0-234) ng/mlDDU Sodium 156 H (137-145) mmol/L Chloride 121.1 H (98-107) mmol/L BUN 37 H (9-20) mg/dL Glucose 318 H (75-100) mg/dL POC Glucose 251 H 297 H (70-105) mg/dL Calcium 8.2 L (8.4-10.2) mg/dL Ferritin (30.0-300.0) ng/mL Alkaline Phosphatase 133 H (35-129) units/L Lactate Dehydrogenase (91-180) units/L C-Reactive Protein (0.00-1.30) mg/dL Total Protein 5.0 L (6.3-8.2) g/dL Albumin 2.1 L (3.9-5) g/dL 07/16/21 07/16/21 07/16/21 Range/Units 04:15 04:15 04:15 D-Dimer > 48765 H (0-234) ng/mlDDU Sodium (137-145) mmol/L Chloride (98-107) mmol/L BUN (9-20) mg/dL Glucose (75-100) mg/dL POC Glucose (70-105) mg/dL Calcium (8.4-10.2) mg/dL Ferritin 2932.0 H (30.0-300.0) ng/mL Alkaline Phosphatase (35-129) units/L Lactate Dehydrogenase 920 H (91-180) units/L C-Reactive Protein 21.40 H (0.00-1.30) mg/dL Total Protein (6.3-8.2) g/dL Albumin (3.9-5) g/dL 07/16/21 07/16/21 Range/Units 07:20 11:30 D-Dimer (0-234) ng/mlDDU Sodium (137-145) mmol/L Chloride (98-107) mmol/L BUN (9-20) mg/dL Glucose (75-100) mg/dL POC Glucose 330 H 363 H (70-105) mg/dL Calcium (8.4-10.2) mg/dL Ferritin (30.0-300.0) ng/mL Alkaline Phosphatase (35-129) units/L Lactate Dehydrogenase (91-180) units/L C-Reactive Protein (0.00-1.30) mg/dL Total Protein (6.3-8.2) g/dL Albumin (3.9-5) g/dL
[2021-07-16] MEDS: REMDESIVIR 100 MG in SODIUM CHLORIDE 0.9% 250ML 250 ML IV SCH (21:49)
[2021-07-16] MEDS: SODIUM CHLORIDE 0.9% 50 ML IVPB IV SCH (21:51)
[2021-07-16] MEDS: INSULIN GLARGINE 100 UNITS/ML SUB-Q SCH (21:53)
[2021-07-17] MEDS: DEXTROSE 5% IN WATER 1,000 ML IV SCH (06:25)
[2021-07-17 06:31] LABS: Hematocrit 40.3 % (35.5-45.6); Hemoglobin 13.1 gm/dl (11.8-15.2); Mean Corpuscular HGB Conc 33 % (32-34); Mean Corpuscular Volume 89 fl (84-94); Platelet Count 124 K/mm3 (140-440); Red Blood Count 4.53 M/mm3 (3.65-5.03); Red Cell Distribution Width 14.4 % (13.2-15.2)
[2021-07-17 06:46] LABS: C-Reactive Protein 9.7 mg/dL (0.00-1.30)
[2021-07-17 06:47] LABS: Alanine Aminotransferase 16 units/L (7-56); Albumin 2.1 g/dL (3.9-5); BUN/Creatinine Ratio 33; Blood Urea Nitrogen 30 mg/dL (9-20); Calcium 8.3 mg/dL (8.4-10.2); Hemolysis Index 9
[2021-07-17] MEDS: INSULIN REGULAR, HUMAN 100 UNITS/1 ML SUB-Q SCH ×4 (08:23→22:03)
[2021-07-17] MEDS: INSULIN LISPRO 100 UNIT/ML SUB-Q SCH ×4 (08:23→22:02)
--- NOTE | 2021-07-17 08:52 | Progress Note ---
Assessment and Plan Assessment and plan: Assessment and plan: This 66-year-old male with DM admitted as a COVID-19 PUI with DKA Neuro: Acute metabolic encephalopathy -07/09 CT head-> focal hypodense areas in left frontal lobe and right superior lobe. Radiology recommended MRI -Avoid delirium -Aspiration/fall precautions -Neuro consulted, appreciate recommendations -MRI brain pending, patient currently too unstable for MRI Cardio: ST -Blood Pressure monitoring per protocol -As needed hydralazine -Echo pending Respiratory: Rule out PE, acute hypoxic respiratory failure -Patient is on high flow nasal cannula with Venturi mask overlying. Per pulmonology, patient is not BiPAP appropriate Would benefit from proning however he is restrained currently. -CCM consulted, appreciate recs -CTA chest pending -Supplemental oxygen as needed -Pulmonary hygiene GI: Dysphagia -Patient cleared for p.o. intake but will require pured diet. Still some concern with aspiration. If patient does eat will need monitored feedings. -BR: Colace -PPI : LUIS M 2/2 vasomotor nephropathy (resolving), hypernatremia, hyper chloremia, high anion gap metabolic acidosis, -Presented with a BUN/creatinine 1.5/50 but now trending down -Strict intake and output -Renally dose medications -Avoid nephrotoxic medication -Consider nephrology work-up if worsening Hypotonic fluids for now. Heme: Leukocytosis, DVT -BLE Dopplar US shows acute occlusive DVT noted in the posterior tibial vein and peroneal vein -Started on heparin drip but now switched to lovenox -SCDs to bilateral LE while in bed -Trend CBC Endo: s/p DKA, h/o DM (noncompliant per family) -s/p DKA protocol -Hemaglobin A1C 16.5 -CC diet when appropriate -avoid hypoglycemia -SSI with long acting insulin Lantus 20 units nightly Regular insulin 5 units ACHS D5W with 40 M EQ, monitor blood sugars Given patient elevated blood sugars and anion gap metabolic acidosis, may need to consider restarting insulin drip. Will reevaluate. ID: COVID-19 PNA -COVID-19 PCR positive -Infectious disease consulted, appreciate recommendations -Currently on empiric antibiotics -Patient started on dexamethasone (07/13-07/22) -Redesivir (07/14-07/18) -Isolation/droplet precautions -Prone as tolerated -Trend COVID-19 inflammatory markers -Anticoagulation per protocol -Pulmonary hygiene -SPO2 monitoring -Follow culture data -Prone as tolerated Hospital course to date 07/15/2021: Continuing therapy with steroids, remdesivir, antibiotics for now. Patient remains on high flow nasal cannula with flow rate 40 L/min and FiO2 100%. Will attempt to reach out to family today. 07/16/2021: Continue Covid standard therapy, once patient is out of restraints can consider starting proning. Has high flow nasal cannula with overlying Ventimask. Saturating at 90%. Some concern with confusion. Would like MRI completed however this will be challenging due to poor oxygen status. Blood sugar is also considerably elevated today. Will change insulin regimen to Lantus and scheduled regular insulin. Unfortunately since patient still hypernatremic hyperchloremic will require hypotonic fluid in the form of D5W. If blood sugar becomes challenging to control may need to restart insulin drip 07/17/2021: Desaturated this morning. ABG ordered demonstrating decreased PaO2. Chest x-ray did not show any significant interval change. BiPAP initiated initi ally however later discontinued to high flow nasal cannula/Ventimask combo therapy. In light of worse clinical picture, explained to patient and daughter over phone progression of lung disease from Covid pneumonia. Discussed changes with pulmonology this morning. Blood sugar control improved today. Electrolyte disturbances (hypernatremia, hyperchloremia) noted, gap remains closed. Currently on D5 W with 40 M EQ potassium at 125. ------ The high probability of a clinically significant, sudden or life threatening deterioration of the [pulm,ID,endo] system(s) required my full and direct attention, intervention and personal management. The aggregate critical care time was [60] minutes. This time is in addition to time spent performing reported procedures but includes the following: [x] Data Review and interpretation [x] Patient assessment and monitoring of vital signs [x] Documentation [x] Medication orders and management Disposition Plan: icu Total Time Spent with Patient (Minutes): 60 History Interval history: Patient desaturated to 70s this morning. Escalated to BiPAP currently saturating in 90s. Called daughter this morning to discuss patient's clinical prognosis explained to daughter that his oxygen requirements have only increased. Both the patient and his daughter both stated that they would like full measures at this time. Hospitalist Physical - Physical exam Narrative exam: General appearance: Present: No acute distress, well-nourished, obese - EENT Eyes: Present: PERRL, EOM intact ENT: hearing intact, clear oral mucosa - Neck Neck: Present: supple, normal ROM - Respiratory Respiratory effort: normal Respiratory: bilateral: diminished, on high flow nasal cannula and Ventimask - Cardiovascular Rhythm: regular Heart Sounds: Present: S1 & S2. Absent: systolic murmur, diastolic murmur - Extremities Extremities: no ischemia, pulses intact, pulses symmetrical, No edema, normal temperature, normal color, Full ROM Peripheral Pulses: within normal limits - Abdominal General gastrointestinal: soft, non-tender, non-distended, normal bowel sounds - Integumentary Integumentary: Present: warm, dry. Please refer to full assessment in nursing note. - Psychiatric Psychiatric: appropriate mood/affect, cooperative - Neurologic Neurologic: CNII-XII intact, moves all extremities - Allied Health Allied health notes reviewed: nursing, social work - Constitutional Vitals: Temp Pulse Resp BP Pulse Ox 98.7 F 92 H 19 143/79 84 07/17/21 08:00 07/17/21 06:31 07/17/21 06:31 07/17/21 06:31 07/17/21 08:00 General appearance: Present: mild distress, well-nourished, obese HEART Score - HEART Score Troponin: Troponin T < 0.010 ng/mL (0.00-0.029) 07/12/21 20:38 Results - Labs CBC & Chem 7: 07/17/21 05:37 07/17/21 05:37 Labs: Laboratory Last Values WBC 13.1 K/mm3 (4.5-11.0) H 07/17/21 05:37 RBC 4.53 M/mm3 (3.65-5.03) 07/17/21 05:37 Hgb 13.1 gm/dl (11.8-15.2) 07/17/21 05:37 Hct 40.3 % (35.5-45.6) 07/17/21 05:37 MCV 89 fl (84-94) 07/17/21 05:37 MCH 29 pg (28-32) 07/17/21 05:37 MCHC 33 % (32-34) 07/17/21 05:37 RDW 14.4 % (13.2-15.2) 07/17/21 05:37 Plt Count 124 K/mm3 (140-440) L 07/17/21 05:37 Add Manual Diff Complete 07/13/21 05:18 Total Counted 100 07/13/21 05:18 Seg Neutrophils % Quality Control Analyst 07/13/21 05:18 Seg Neuts % (Manual) 86.0 % (40.0-70.0) H 07/13/21 05:18 Band Neutrophils % 9.0 % 07/13/21 05:18 Lymphocytes % (Manual) 4.0 % (13.4-35.0) L 07/13/21 05:18 Monocytes % (Manual) 3.0 % (0.0-7.3) 07/12/21 20:38 Myelocytes % 1.0 % 07/13/21 05:18 Nucleated RBC % Not Reportable 07/13/21 05:18 Seg Neutrophils # Man 12.1 K/mm3 (1.8-7.7) H 07/13/21 05:18 Band Neutrophils # 1.3 K/mm3 07/13/21 05:18 Lymphocytes # (Manual) 0.6 K/mm3 (1.2-5.4) L 07/13/21 05:18 Abs React Lymphs (Man) 0.0 K/mm3 07/13/21 05:18 Monocytes # (Manual) 0.0 K/mm3 (0.0-0.8) 07/13/21 05:18 Eosinophils # (Manual) 0.0 K/mm3 (0.0-0.4) 07/13/21 05:18 Basophils # (Manual) 0.0 K/mm3 (0.0-0.1) 07/13/21 05:18 Metamyelocytes # 0.0 K/mm3 07/13/21 05:18 Myelocytes # 0.1 K/mm3 07/13/21 05:18 Promyelocytes # 0.0 K/mm3 07/13/21 05:18 Blast Cells # 0.0 K/mm3 07/13/21 05:18 WBC Morphology Not Reportable 07/13/21 05:18 Hypersegmented Neuts Not Reportable 07/13/21 05:18 Hyposegmented Neuts Not Reportable 07/13/21 05:18 Hypogranular Neuts Not Reportable 07/13/21 05:18 Smudge Cells Not Reportable 07/13/21 05:18 Toxic Granulation Not Reportable 07/13/21 05:18 Toxic Vacuolation Not Reportable 07/13/21 05:18 Dohle Bodies Not Reportable 07/13/21 05:18 Pelger-Huet Anomaly Not Reportable 07/13/21 05:18 Isha Rods Not Reportable 07/13/21 05:18 Platelet Estimate Consistent w auto 07/13/21 05:18 Clumped Platelets Not Reportable 07/13/21 05:18 Plt Clumps, EDTA Not Reportable 07/13/21 05:18 Large Platelets Not Reportable 07/13/21 05:18 Giant Platelets Not Reportable 07/13/21 05:18 Platelet Satelliting Not Reportable 07/13/21 05:18 Plt Morphology Comment Not Reportable 07/13/21 05:18 RBC Morphology Normal 07/13/21 05:18 Dimorphic RBCs Not Reportable 07/13/21 05:18 Polychromasia Not Reportable 07/13/21 05:18 Hypochromasia Not Reportable 07/13/21 05:18 Poikilocytosis Not Reportable 07/13/21 05:18 Anisocytosis Not Reportable 07/13/21 05:18 Microcytosis Not Reportable 07/13/21 05:18 Macrocytosis Not Reportable 07/13/21 05:18 Spherocytes Not Reportable 07/13/21 05:18 Pappenheimer Bodies Not Reportable 07/13/21 05:18 Sickle Cells Not Reportable 07/13/21 05:18 Target Cells Not Reportable 07/13/21 05:18 Tear Drop Cells Not Reportable 07/13/21 05:18 Ovalocytes Not Reportable 07/13/21 05:18 Helmet Cells Not Reportable 07/13/21 05:18 [place] Bodies Not Reportable 07/13/21 05:18 [place] Rings Not Reportable 07/13/21 05:18 Malick Cells Not Reportable 07/13/21 05:18 Bite Cells Not Reportable 07/13/21 05:18 Crenated Cell Not Reportable 07/13/21 05:18 Elliptocytes Not Reportable 07/13/21 05:18 Acanthocytes (Spur) Not Reportable 07/13/21 05:18 Rouleaux Not Reportable 07/13/21 05:18 Hemoglobin C Crystals Not Reportable 07/13/21 05:18 Schistocytes Not Reportable 07/13/21 05:18 Malaria parasites Not Reportable 07/13/21 05:18 Jonn Bodies Not Reportable 07/13/21 05:18 Hem Pathologist Commnt No 07/13/21 05:18 PT 17.1 Sec. (12.2-14.9) H 07/13/21 23:57 INR 1.34 (0.87-1.13) H 07/13/21 23:57 APTT 60.0 Sec. (24.2-36.6) H 07/13/21 23:57 D-Dimer > 06106 ng/mlDDU (0-234) H 07/16/21 04:15 ABG pH 7.452 (7.320-7.450) H 07/15/21 10:22 POC ABG pCO2 30.6 mmHg (32.0-48.0) L 07/15/21 10:22 POC ABG pO2 59.5 mmHg (83-108) L 07/15/21 10:22 POC ABG HCO3 20.9 07/15/21 10:22 ABG O2 Saturation 92.2 (0-100) 07/15/21 10:22 POC ABG Base Excess -2.0 07/15/21 10:22 ABG Hemoglobin 13.9 (12.0-17.5) 07/15/21 10:22 ABG Oxyhemoglobin 91.2 (94-98) L 07/15/21 10:22 ABG Methemoglobin 0.3 (0.0-1.5) 07/15/21 10:22 ABG Sodium 154.0 mmol/L (136.0-145.0) H 07/15/21 10:22 ABG Potassium 3.5 mmol/L (3.40-4.50) 07/15/21 10:22 ABG Chloride 124.0 mmol/L (98-107) H 07/15/21 10:22 ABG Glucose 174 mg/dL (65-95) H 07/15/21 10:22 VBG pH 7.170 (7.320-7.420) L* 07/12/21 20:38 Carboxyhemoglobin 0.8 (0.5-1.5) 07/15/21 10:22 FiO2 % 100.0 07/15/21 10:22 Sodium 154 mmol/L (137-145) H 07/17/21 05:37 Potassium 3.4 mmol/L (3.6-5.0) L 07/17/21 05:37 Chloride 121.1 mmol/L (98-107) H 07/17/21 05:37 Carbon Dioxide 24 mmol/L (22-30) 07/17/21 05:37 Anion Gap 12 mmol/L 07/17/21 05:37 BUN 30 mg/dL (9-20) H 07/17/21 05:37 Creatinine 0.9 mg/dL (0.8-1.3) 07/17/21 05:37 Estimated GFR > 60 ml/min 07/17/21 05:37 BUN/Creatinine Ratio 33 % 07/17/21 05:37 Glucose 158 mg/dL (75-100) H 07/17/21 05:37 POC Glucose 163 mg/dL (70-105) H 07/17/21 07:47 Hemoglobin A1c 16.5 % (4-6) H 07/14/21 05:30 Ketones Quantitative Moderate (Negative) 07/12/21 20:38 Lactic Acid 1.90 mmol/L (0.7-2.0) 07/12/21 20:38 Calcium 8.3 mg/dL (8.4-10.2) L 07/17/21 05:37 Phosphorus 6.00 mg/dL (2.5-4.5) H 07/12/21 23:14 Magnesium 3.00 mg/dL (1.7-2.3) H 07/12/21 23:14 Ferritin 2270.0 ng/mL (30.0-300.0) H 07/17/21 05:37 Total Bilirubin 0.30 mg/dL (0.1-1.2) 07/17/21 05:37 AST 33 units/L (5-40) 07/17/21 05:37 ALT 16 units/L (7-56) 07/17/21 05:37 Alkaline Phosphatase 183 units/L (35-129) H 07/17/21 05:37 Ammonia 45.0 umol/L (25-60) 07/12/21 20:38 Lactate Dehydrogenase 1277 units/L (91-180) H 07/17/21 05:37 Total Creatine Kinase 372 units/L (55-170) H 07/12/21 20:38 Troponin T < 0.010 ng/mL (0.00-0.029) 07/12/21 20:38 C-Reactive Protein 9.70 mg/dL (0.00-1.30) H 07/17/21 05:37 Total Protein 5.5 g/dL (6.3-8.2) L 07/17/21 05:37 Albumin 2.1 g/dL (3.9-5) L 07/17/21 05:37 Albumin/Globulin Ratio 0.6 % 07/17/21 05:37 TSH 0.819 mlU/mL (0.270-4.200) 07/12/21 20:38 Arterial Blood Glucose 174 mg/dL (65-95) H 07/15/21 10:22 Arterial Blood Ionized Calcium 4.9 mg/dL (4.6-5.3) 07/15/21 10:22 Urine Color Straw (Yellow) 07/13/21 01:33 Urine Turbidity Clear (Clear) 07/13/21 01:33 Urine pH 5.0 (5.0-7.0) 07/13/21 01:33 Ur Specific [place] 1.025 (1.003-1.030) 07/13/21 01:33 Urine Protein 30 mg/dl mg/dL (Negative) 07/13/21 01:33 Urine Glucose (UA) >=500 mg/dL (Negative) 07/13/21 01:33 Urine Ketones 80 mg/dL (Negative) 07/13/21 01:33 Urine Blood Mod (Negative) 07/13/21 01:33 Urine Nitrite Neg (Negative) 07/13/21 01:33 Urine Bilirubin Neg (Negative) 07/13/21 01:33 Urine Urobilinogen < 2.0 mg/dL (<2.0) 07/13/21 01:33 Ur Leukocyte Esterase Neg (Negative) 07/13/21 01:33 Urine WBC (Auto) < 1.0 /HPF (0.0-6.0) 07/13/21 01:33 Urine RBC (Auto) 1.0 /HPF (0.0-6.0) 07/13/21 01:33 U Epithel Cells (Auto) < 1.0 /HPF (0-13.0) 07/13/21 01:33 Hyaline Casts 1 /LPF 07/13/21 01:33 Urine Mucus Few /HPF 07/13/21 01:33 Salicylates < 0.3 mg/dL (2.8-20.0) L 07/12/21 20:38 Urine Opiates Screen Presumptive negative 07/13/21 01:33 Urine Methadone Screen Presumptive negative 07/13/21 01:33 Acetaminophen 5.0 ug/mL (10.0-30.0) L 07/12/21 20:38 Ur Barbiturates Screen Presumptive negative 07/13/21 01:33 Ur Phencyclidine Scrn Presumptive negative 07/13/21 01:33 Ur Amphetamines Screen Presumptive negative 07/13/21 01:33 U Benzodiazepines Scrn Presumptive negative 07/13/21 01:33 Urine Cocaine Screen Presumptive negative 07/13/21 01:33 U Marijuana (THC) Screen Presumptive negative 07/13/21 01:33 Drugs of Abuse Note Disclamer 07/13/21 01:33 Plasma/Serum Alcohol < 0.01 % (0-0.07) 07/12/21 20:38 Coronavirus (PCR) Positive (Negative) A 07/13/21 Unknown Blood Type A POSITIVE 07/12/21 20:38 Antibody Screen Negative 07/12/21 20:38 Microbiology: Microbiology 07/12/21 20:38 Peripheral/Venous Blood Culture - Preliminary NO GROWTH AFTER 4 DAYS 07/12/21 20:38 Peripheral/Venous Blood Culture - Preliminary NO GROWTH AFTER 4 DAYS Umanzor/IV: Voiding Method Condom Catheter Active Medications - Current Medications Current Medications: Generic Name Dose Route Start Last Admin Trade Name Freq PRN Reason Stop Dose Admin Acetaminophen 650 mg 07/12/21 22:08 Acetaminophen 325 Mg Tab PO Q4H PRN Pain MILD(1-3)/Fever >100.5/YOUNGBLOOD Albuterol 2 puff 07/16/21 06:28 Albuterol 8.5 Gm Mdi Inhalation IH Q4HRT PRN Shortness Of Breath Dexamethasone 6 mg 07/13/21 10:00 07/16/21 09:00 Dexamethasone 4 Mg/Ml Vial IV 07/22/21 10:01 6 mg DAILY JESUS Administration Dextrose 50 ml 07/14/21 07:19 Dextrose 50% In Water (25gm) 50 Ml Syringe IV Q30MIN PRN Hypoglycemia Protocol Docusate Sodium 100 mg 07/13/21 22:00 07/16/21 22:22 Docusate Sodium 100 Mg/10 Ml Oral Liqd PO Not Given BID [facility] Enoxaparin Sodium 100 mg 07/14/21 10:00 07/16/21 21:52 Enoxaparin 100 Mg/1 Ml Inj SUB-Q 100 mg Q12HR JESUS Administration Protocol Famotidine 20 mg 07/13/21 10:00 07/16/21 21:53 Famotidine 20 Mg/2 Ml Inj IV 20 mg BID JESUS Administration Hydralazine HCl 10 mg 07/13/21 21:05 Hydralazine 20 Mg/1 Ml Inj IV Q4H PRN Hypertension Hydromorphone HCl 0.5 mg 07/12/21 22:08 Hydromorphone 1 Mg/1 Ml Inj IV Q3H PRN Pain , Severe (7-10) Azithromycin 500 mg in 250 mls @ 250 mls/hr 07/12/21 23:00 07/16/21 09:08 Zithromax/Ns IV 250 mls/hr Q24HR [facility] Administration Protocol Ceftriaxone Sodium 2 gm in 100 mls @ 200 mls/hr 07/12/21 23:15 07/16/21 09:01 Rocephin/Ns 2 Gm/100 Ml IV 200 mls/hr Q24HR JESUS Administration Protocol REMDESIVIR 100 mg/ Sodium 250 mls @ 500 mls/hr 07/15/21 21:00 07/16/21 21:49 Chloride IV 07/18/21 21:29 500 mls/hr Q24HR@2100 [facility] Administration Potassium Chloride 40 meq/ 1,020 mls @ 125 mls/hr 07/17/21 08:45 Dextrose IV DIRECT [facility] Insulin Glargine 20 units 07/16/21 22:00 07/16/21 21:53 Insulin Glargine 100 Units/Ml SUB-Q 20 units QHS JESUS Administration Insulin Human Lispro 0 unit 07/14/21 08:00 07/17/21 08:23 Insulin Lispro 100 Unit/Ml SUB-Q 1 unit ACHS JESUS Administration Protocol Insulin Human Regular 5 units 07/16/21 11:30 07/17/21 08:23 Insulin Regular, Human 100 Units/1 Ml SUB-Q 5 units ACHS JESUS Administration Ondansetron HCl 4 mg 07/12/21 22:08 Ondansetron 4 Mg/2 Ml Inj IV Q8H PRN Nausea And Vomiting Oxycodone/Acetaminophen 1 tab 07/12/21 22:08 Oxycodone /Acetaminophen 5-325mg Tab PO Q6H PRN Pain, Moderate (4-6) Sodium Chloride 10 ml 07/13/21 10:00 07/16/21 21:54 Sodium Chloride 0.9% 10 Ml Flush Syringe IV 10 ml BID JESUS Administration Sodium Chloride 10 ml 07/12/21 22:08 Sodium Chloride 0.9% 10 Ml Flush Syringe IV PRN PRN LINE FLUSH Sodium Chloride 50 ml 07/14/21 10:00 07/16/21 21:51 Sodium Chloride 0.9% 50 Ml Ivpb IV 07/18/21 21:01 50 ml Q24HR@2100 JESUS Administration Nutrition/Malnutrition Assess - Dietary Evaluation Nutrition/Malnutrition Findings: Nutrition Notes Start: 07/13/21 10:12 Freq: Status: Active Protocol: Document 07/16/21 11:00 CLIFFORD (Rec: 07/16/21 11:01 CLIFFORD [id number]) Nutrition Notes Initial or Follow up Brief Note Subjective/Other Information Unable to contact pt. Nutrition Intervention Follow-Up By: 07/19/21 Additional Comments F/U: diet education needs, transfer to medical floor
[2021-07-17] MEDS: FAMOTIDINE 20 MG/2 ML INJ IV SCH ×2 (09:27→22:05)
[2021-07-17] MEDS: dexAMETHasone 4 MG/ML VIAL IV SCH (09:27)
[2021-07-17] MEDS: DOCUSATE SODIUM 100 MG/10 ML ORAL LIQD PO SCH ×2 (09:27→22:01)
[2021-07-17] MEDS: ENOXAPARIN 100 MG/1 ML INJ SUB-Q SCH ×2 (09:29→22:02)
[2021-07-17] MEDS: POTASSIUM CHLORIDE 40 MEQ in DEXTROSE 5% IN WATER 1,000 ML IV SCH ×2 (10:16→21:30)
--- NOTE | 2021-07-17 11:11 | XRay Report ---
CHEST 1 VIEW 07/17/2021 9:59 AM INDICATION / CLINICAL INFORMATION: pulmonary edema. COMPARISON: 07/16/2021 FINDINGS: SUPPORT DEVICES: None. HEART / MEDIASTINUM: No significant abnormality. LUNGS / PLEURA: Moderate to severe bilateral parenchymal disease, unchanged No pneumothorax. ADDITIONAL FINDINGS: No significant additional findings. IMPRESSION: 1. No significant interval change Signer Name: Rishi Wade MD Signed: 07/17/2021 11:07 AM Workstation Name: [id number]
--- NOTE | 2021-07-17 13:09 | Progress Note ---
Assessment and Plan 66 y/o male, initially admitted as DKA, found to be hypoxic in ED and then COVID positive now with persistent/worsening respiratory failure. 07/17/21: IMS spoke with family this am and they wish patient to remain full code. WIll require intubation if cannot maintain sats on COMBO therapy as he is not bipap appropriate. If intubated, even worse prognosis than now and overall prognosis is very poor. 1. Remdesivir and IV steroids 2. Tight blood sugar control 3. Agree with full dose anticoagulation 4. Prone as tolerated if possible 5. Monitor fluid balance. Guarded prognosis. Subjective Date of service: 07/17/21 Interval history: O2 sats are very marginal on HFNC and NRB. NRB added this morning. Mental status is not appropriate for bipap right now. Objective Vital Signs - 12hr 07/17/21 07/17/21 07/17/21 01:31 02:00 02:31 Temperature Pulse Rate 89 87 87 Pulse Rate [ From Monitor] Respiratory 16 18 19 Rate Blood Pressure 126/80 120/81 120/81 O2 Sat by Pulse 92 90 89 Oximetry 07/17/21 07/17/21 07/17/21 03:00 03:31 03:52 Temperature 97.7 F Pulse Rate 86 90 Pulse Rate [ From Monitor] Respiratory 17 16 Rate Blood Pressure 140/79 120/81 O2 Sat by Pulse 89 90 Oximetry 07/17/21 07/17/21 07/17/21 04:00 04:31 05:00 Temperature Pulse Rate 90 94 H 84 Pulse Rate [ 88 From Monitor] Respiratory 15 24 16 Rate Blood Pressure 132/79 132/79 128/67 O2 Sat by Pulse 88 88 86 Oximetry 07/17/21 07/17/21 07/17/21 05:31 06:00 06:31 Temperature Pulse Rate 94 H 92 H 92 H Pulse Rate [ From Monitor] Respiratory 18 16 19 Rate Blood Pressure 128/67 143/79 143/79 O2 Sat by Pulse 87 86 87 Oximetry 07/17/21 07/17/21 07/17/21 07:00 07:31 08:00 Temperature 98.7 F Pulse Rate 94 H 105 H 108 H Pulse Rate [ 108 H From Monitor] Respiratory 18 18 24 Rate Blood Pressure 137/76 137/76 O2 Sat by Pulse 91 82 L 88 Oximetry 08/28/21 08/28/21 08/28/21 08:01 08:31 09:00 Temperature Pulse Rate 108 H 104 H 103 H Pulse Rate [ From Monitor] Respiratory 24 34 H 21 Rate Blood Pressure 137/76 131/51 117/55 O2 Sat by Pulse 96 81 L 84 Oximetry 07/17/21 07/17/21 07/17/21 09:31 10:00 10:31 Temperature Pulse Rate 107 H Pulse Rate [ From Monitor] Respiratory 29 H Rate Blood Pressure 131/51 83/51 117/55 O2 Sat by Pulse 79 L 88 91 Oximetry 07/17/21 07/17/21 07/17/21 11:00 11:31 12:00 Temperature Pulse Rate 94 H 95 H 99 H Pulse Rate [ From Monitor] Respiratory 22 26 H Rate Blood Pressure 83/51 83/51 O2 Sat by Pulse 92 93 Oximetry 07/17/21 12:01 Temperature Pulse Rate 99 H Pulse Rate [ From Monitor] Respiratory 24 Rate Blood Pressure 83/51 O2 Sat by Pulse 94 Oximetry CBC and BMP: 07/17/21 05:37 07/17/21 05:37 ABG, PT/INR, D-dimer: ABG ABG pH 7.455 (7.320-7.450) H 07/17/21 10:40 POC ABG pCO2 32.4 mmHg (32.0-48.0) 07/17/21 10:40 POC ABG pO2 49.7 mmHg (83-108) L 07/17/21 10:40 POC ABG HCO3 22.3 07/17/21 10:40 ABG O2 Saturation 86.4 (0-100) 07/17/21 10:40 PT/INR, D-dimer PT 17.1 Sec. (12.2-14.9) H 07/13/21 23:57 INR 1.34 (0.87-1.13) H 07/13/21 23:57 D-Dimer > 16698 ng/mlDDU (0-234) H 07/16/21 04:15 Abnormal lab findings: Abnormal Labs 07/12/21 07/12/21 07/12/21 20:38 20:38 20:38 WBC 11.1 H Hct 46.8 H MCV 96 H MCHC 31 L RDW 15.3 H Plt Count Seg Neuts % (Manual) 91.0 H Lymphocytes % (Manual) 6.0 L Seg Neutrophils # Man 10.1 H Lymphocytes # (Manual) 0.7 L PT 16.5 H INR 1.28 H APTT D-Dimer ABG pH POC ABG pCO2 POC ABG pO2 ABG Oxyhemoglobin ABG Sodium ABG Potassium ABG Chloride ABG Glucose VBG pH Sodium 146 H Potassium 5.2 H Chloride Carbon Dioxide 7 L* BUN 50 H Creatinine 1.5 H Glucose 617 H* POC Glucose Hemoglobin A1c Calcium Phosphorus Magnesium 3.20 H Ferritin AST Alkaline Phosphatase Lactate Dehydrogenase Total Creatine Kinase 372 H C-Reactive Protein Total Protein Albumin 3.2 L Arterial Blood Glucose Salicylates Acetaminophen Coronavirus (PCR) 07/12/21 07/12/21 07/12/21 20:38 20:38 20:38 WBC Hct MCV MCHC RDW Plt Count Seg Neuts % (Manual) Lymphocytes % (Manual) Seg Neutrophils # Man Lymphocytes # (Manual) PT INR APTT D-Dimer ABG pH POC ABG pCO2 POC ABG pO2 ABG Oxyhemoglobin ABG Sodium ABG Potassium ABG Chloride ABG Glucose VBG pH 7.170 L* Sodium Potassium Chloride Carbon Dioxide BUN Creatinine Glucose POC Glucose Hemoglobin A1c Calcium Phosphorus Magnesium Ferritin AST Alkaline Phosphatase Lactate Dehydrogenase Total Creatine Kinase C-Reactive Protein Total Protein Albumin Arterial Blood Glucose Salicylates < 0.3 L Acetaminophen 5.0 L Coronavirus (PCR) 07/12/21 07/12/21 07/12/21 21:31 21:31 23:14 WBC Hct MCV MCHC RDW Plt Count Seg Neuts % (Manual) Lymphocytes % (Manual) Seg Neutrophils # Man Lymphocytes # (Manual) PT INR APTT D-Dimer ABG pH POC ABG pCO2 POC ABG pO2 ABG Oxyhemoglobin ABG Sodium ABG Potassium ABG Chloride ABG Glucose VBG pH Sodium 148 H 150 H Potassium 5.1 H 5.1 H Chloride Carbon Dioxide 6 L* 7 L* BUN 53 H 52 H Creatinine 1.6 H 1.6 H Glucose 610 H* 606 H* POC Glucose Hemoglobin A1c Calcium Phosphorus 5.70 H 6.00 H Magnesium 3.10 H 3.00 H Ferritin AST Alkaline Phosphatase Lactate Dehydrogenase 822 H Total Creatine Kinase C-Reactive Protein 8.10 H Total Protein Albumin Arterial Blood Glucose Salicylates Acetaminophen Coronavirus (PCR) 07/12/21 07/12/21 07/12/21 23:14 23:14 23:14 WBC Hct MCV MCHC RDW Plt Count Seg Neuts % (Manual) Lymphocytes % (Manual) Seg Neutrophils # Man Lymphocytes # (Manual) PT INR APTT D-Dimer > 49654 H ABG pH POC ABG pCO2 POC ABG pO2 ABG Oxyhemoglobin ABG Sodium ABG Potassium ABG Chloride ABG Glucose VBG pH Sodium Potassium Chloride Carbon Dioxide BUN Creatinine Glucose POC Glucose Hemoglobin A1c Calcium Phosphorus Magnesium Ferritin 4711.0 H AST Alkaline Phosphatase Lactate Dehydrogenase 811 H Total Creatine Kinase C-Reactive Protein 8.30 H Total Protein Albumin Arterial Blood Glucose Salicylates Acetaminophen Coronavirus (PCR) 07/13/21 07/13/21 07/13/21 01:01 01:43 02:16 WBC Hct MCV MCHC RDW Plt Count Seg Neuts % (Manual) Lymphocytes % (Manual) Seg Neutrophils # Man Lymphocytes # (Manual) PT INR APTT D-Dimer ABG pH POC ABG pCO2 POC ABG pO2 ABG Oxyhemoglobin ABG Sodium ABG Potassium ABG Chloride ABG Glucose VBG pH Sodium 129 L D Potassium Chloride Carbon Dioxide 15 L D BUN Creatinine Glucose 123 H POC Glucose 419 H 343 H Hemoglobin A1c Calcium Phosphorus Magnesium Ferritin AST Alkaline Phosphatase Lactate Dehydrogenase Total Creatine Kinase C-Reactive Protein Total Protein Albumin Arterial Blood Glucose Salicylates Acetaminophen Coronavirus (PCR) 07/13/21 07/13/21 07/13/21 03:23 04:24 05:18 WBC Hct MCV MCHC RDW Plt Count Seg Neuts % (Manual) Lymphocytes % (Manual) Seg Neutrophils # Man Lymphocytes # (Manual) PT INR APTT D-Dimer ABG pH POC ABG pCO2 POC ABG pO2 ABG Oxyhemoglobin ABG Sodium ABG Potassium ABG Chloride ABG Glucose VBG pH Sodium 154 H D Potassium Chloride 115.4 H Carbon Dioxide 15 L BUN 45 H Creatinine Glucose 270 H POC Glucose 295 H 259 H Hemoglobin A1c Calcium Phosphorus Magnesium Ferritin AST Alkaline Phosphatase Lactate Dehydrogenase Total Creatine Kinase C-Reactive Protein Total Protein Albumin Arterial Blood Glucose Salicylates Acetaminophen Coronavirus (PCR) 07/13/21 07/13/21 07/13/21 05:18 05:21 06:31 WBC 14.1 H Hct MCV MCHC RDW Plt Count Seg Neuts % (Manual) 86.0 H Lymphocytes % (Manual) 4.0 L Seg Neutrophils # Man 12.1 H Lymphocytes # (Manual) 0.6 L PT INR APTT D-Dimer ABG pH POC ABG pCO2 POC ABG pO2 ABG Oxyhemoglobin ABG Sodium ABG Potassium ABG Chloride ABG Glucose VBG pH Sodium Potassium Chloride Carbon Dioxide BUN Creatinine Glucose POC Glucose 239 H 227 H Hemoglobin A1c Calcium Phosphorus Magnesium Ferritin AST Alkaline Phosphatase Lactate Dehydrogenase Total Creatine Kinase C-Reactive Protein Total Protein Albumin Arterial Blood Glucose Salicylates Acetaminophen Coronavirus (PCR) 07/13/21 07/13/21 07/13/21 08:18 09:22 11:29 WBC Hct MCV MCHC RDW Plt Count Seg Neuts % (Manual) Lymphocytes % (Manual) Seg Neutrophils # Man Lymphocytes # (Manual) PT INR APTT D-Dimer ABG pH POC ABG pCO2 POC ABG pO2 ABG Oxyhemoglobin ABG Sodium ABG Potassium ABG Chloride ABG Glucose VBG pH Sodium 154 H Potassium Chloride 118.5 H Carbon Dioxide 20 L BUN 41 H Creatinine Glucose 228 H POC Glucose 226 H 202 H Hemoglobin A1c Calcium Phosphorus Magnesium Ferritin AST Alkaline Phosphatase Lactate Dehydrogenase Total Creatine Kinase C-Reactive Protein Total Protein Albumin Arterial Blood Glucose Salicylates Acetaminophen Coronavirus (PCR) 07/13/21 07/13/21 07/13/21 15:59 16:18 19:32 WBC Hct MCV MCHC RDW Plt Count Seg Neuts % (Manual) Lymphocytes % (Manual) Seg Neutrophils # Man Lymphocytes # (Manual) PT INR APTT D-Dimer ABG pH POC ABG pCO2 POC ABG pO2 ABG Oxyhemoglobin ABG Sodium ABG Potassium ABG Chloride ABG Glucose VBG pH Sodium 152 H Potassium Chloride 119.9 H Carbon Dioxide 21 L BUN 35 H Creatinine Glucose 183 H POC Glucose 204 H 181 H Hemoglobin A1c Calcium Phosphorus Magnesium Ferritin AST Alkaline Phosphatase Lactate Dehydrogenase Total Creatine Kinase C-Reactive Protein Total Protein Albumin Arterial Blood Glucose Salicylates Acetaminophen Coronavirus (PCR) 07/13/21 07/13/21 07/13/21 22:19 23:57 23:57 WBC Hct MCV MCHC RDW Plt Count Seg Neuts % (Manual) Lymphocytes % (Manual) Seg Neutrophils # Man Lymphocytes # (Manual) PT 17.1 H INR 1.34 H APTT 60.0 H D-Dimer > 58573 H ABG pH POC ABG pCO2 POC ABG pO2 ABG Oxyhemoglobin ABG Sodium ABG Potassium ABG Chloride ABG Glucose VBG pH Sodium 156 H Potassium Chloride 122.6 H Carbon Dioxide BUN 31 H Creatinine Glucose 121 H POC Glucose 119 H Hemoglobin A1c Calcium Phosphorus Magnesium Ferritin AST Alkaline Phosphatase Lactate Dehydrogenase Total Creatine Kinase C-Reactive Protein Total Protein Albumin Arterial Blood Glucose Salicylates Acetaminophen Coronavirus (PCR) 07/13/21 07/13/21 07/13/21 23:57 23:57 Unknown WBC Hct MCV MCHC RDW Plt Count Seg Neuts % (Manual) Lymphocytes % (Manual) Seg Neutrophils # Man Lymphocytes # (Manual) PT INR APTT D-Dimer ABG pH POC ABG pCO2 POC ABG pO2 ABG Oxyhemoglobin ABG Sodium ABG Potassium ABG Chloride ABG Glucose VBG pH Sodium Potassium Chloride Carbon Dioxide BUN Creatinine Glucose POC Glucose Hemoglobin A1c Calcium Phosphorus Magnesium Ferritin 3041.0 H AST Alkaline Phosphatase Lactate Dehydrogenase 842 H Total Creatine Kinase C-Reactive Protein 6.30 H Total Protein Albumin Arterial Blood Glucose Salicylates Acetaminophen Coronavirus (PCR) Positive A 07/14/21 07/14/21 07/14/21 00:54 05:30 05:30 WBC 11.9 H Hct MCV MCHC RDW Plt Count Seg Neuts % (Manual) Lymphocytes % (Manual) Seg Neutrophils # Man Lymphocytes # (Manual) PT INR APTT D-Dimer ABG pH POC ABG pCO2 POC ABG pO2 ABG Oxyhemoglobin ABG Sodium ABG Potassium ABG Chloride ABG Glucose VBG pH Sodium 155 H Potassium Chloride 122.4 H Carbon Dioxide 21 L BUN 29 H Creatinine Glucose 228 H POC Glucose 153 H Hemoglobin A1c Calcium 8.2 L Phosphorus Magnesium Ferritin AST Alkaline Phosphatase Lactate Dehydrogenase Total Creatine Kinase C-Reactive Protein Total Protein Albumin Arterial Blood Glucose Salicylates Acetaminophen Coronavirus (PCR) 07/14/21 07/14/21 07/14/21 05:30 08:37 10:38 WBC Hct MCV MCHC RDW Plt Count Seg Neuts % (Manual) Lymphocytes % (Manual) Seg Neutrophils # Man Lymphocytes # (Manual) PT INR APTT D-Dimer ABG pH POC ABG pCO2 POC ABG pO2 ABG Oxyhemoglobin ABG Sodium ABG Potassium ABG Chloride ABG Glucose VBG pH Sodium 156 H Potassium Chloride 124.2 H Carbon Dioxide BUN 28 H Creatinine Glucose 172 H POC Glucose 155 H Hemoglobin A1c 16.5 H Calcium Phosphorus Magnesium Ferritin AST 50 H Alkaline Phosphatase Lactate Dehydrogenase Total Creatine Kinase C-Reactive Protein Total Protein 5.5 L D Albumin 2.7 L Arterial Blood Glucose Salicylates Acetaminophen Coronavirus (PCR) 07/14/21 07/15/21 07/15/21 13:59 04:45 04:45 WBC 12.1 H Hct MCV MCHC 35 H RDW Plt Count 97 L Seg Neuts % (Manual) Lymphocytes % (Manual) Seg Neutrophils # Man Lymphocytes # (Manual) PT INR APTT D-Dimer > 35840 H ABG pH POC ABG pCO2 POC ABG pO2 ABG Oxyhemoglobin ABG Sodium ABG Potassium ABG Chloride ABG Glucose VBG pH Sodium Potassium Chloride Carbon Dioxide BUN Creatinine Glucose POC Glucose 124 H Hemoglobin A1c Calcium Phosphorus Magnesium Ferritin AST Alkaline Phosphatase Lactate Dehydrogenase Total Creatine Kinase C-Reactive Protein Total Protein Albumin Arterial Blood Glucose Salicylates Acetaminophen Coronavirus (PCR) 07/15/21 07/15/21 07/15/21 04:45 04:45 04:45 WBC Hct MCV MCHC RDW Plt Count Seg Neuts % (Manual) Lymphocytes % (Manual) Seg Neutrophils # Man Lymphocytes # (Manual) PT INR APTT D-Dimer ABG pH POC ABG pCO2 POC ABG pO2 ABG Oxyhemoglobin ABG Sodium ABG Potassium ABG Chloride ABG Glucose VBG pH Sodium 159 H Potassium Chloride 126.8 H Carbon Dioxide BUN 31 H Creatinine Glucose POC Glucose Hemoglobin A1c Calcium Phosphorus Magnesium Ferritin > 2000.0 H AST 64 H Alkaline Phosphatase 137 H Lactate Dehydrogenase 1125 H Total Creatine Kinase C-Reactive Protein 12.10 H Total Protein 5.6 L Albumin 2.4 L Arterial Blood Glucose Salicylates Acetaminophen Coronavirus (PCR) 07/15/21 07/15/21 07/15/21 08:23 10:22 11:57 WBC Hct MCV MCHC RDW Plt Count Seg Neuts % (Manual) Lymphocytes % (Manual) Seg Neutrophils # Man Lymphocytes # (Manual) PT INR APTT D-Dimer ABG pH 7.452 H POC ABG pCO2 30.6 L POC ABG pO2 59.5 L ABG Oxyhemoglobin 91.2 L ABG Sodium 154.0 H ABG Potassium ABG Chloride 124.0 H ABG Glucose 174 H VBG pH Sodium Potassium Chloride Carbon Dioxide BUN Creatinine Glucose POC Glucose 138 H 179 H Hemoglobin A1c Calcium Phosphorus Magnesium Ferritin AST Alkaline Phosphatase Lactate Dehydrogenase Total Creatine Kinase C-Reactive Protein Total Protein Albumin Arterial Blood Glucose 174 H Salicylates Acetaminophen Coronavirus (PCR) 07/15/21 07/15/21 07/16/21 16:43 21:44 04:15 WBC Hct MCV MCHC RDW Plt Count Seg Neuts % (Manual) Lymphocytes % (Manual) Seg Neutrophils # Man Lymphocytes # (Manual) PT INR APTT D-Dimer ABG pH POC ABG pCO2 POC ABG pO2 ABG Oxyhemoglobin ABG Sodium ABG Potassium ABG Chloride ABG Glucose VBG pH Sodium 156 H Potassium Chloride 121.1 H Carbon Dioxide BUN 37 H Creatinine Glucose 318 H POC Glucose 251 H 297 H Hemoglobin A1c Calcium 8.2 L Phosphorus Magnesium Ferritin AST Alkaline Phosphatase 133 H Lactate Dehydrogenase Total Creatine Kinase C-Reactive Protein Total Protein 5.0 L Albumin 2.1 L Arterial Blood Glucose Salicylates Acetaminophen Coronavirus (PCR) 07/16/21 07/16/21 07/16/21 04:15 04:15 04:15 WBC Hct MCV MCHC RDW Plt Count Seg Neuts % (Manual) Lymphocytes % (Manual) Seg Neutrophils # Man Lymphocytes # (Manual) PT INR APTT D-Dimer > 93301 H ABG pH POC ABG pCO2 POC ABG pO2 ABG Oxyhemoglobin ABG Sodium ABG Potassium ABG Chloride ABG Glucose VBG pH Sodium Potassium Chloride Carbon Dioxide BUN Creatinine Glucose POC Glucose Hemoglobin A1c Calcium Phosphorus Magnesium Ferritin 2932.0 H AST Alkaline Phosphatase Lactate Dehydrogenase 920 H Total Creatine Kinase C-Reactive Protein 21.40 H Total Protein Albumin Arterial Blood Glucose Salicylates Acetaminophen Coronavirus (PCR) 07/16/21 07/16/21 07/16/21 07:20 11:30 16:09 WBC Hct MCV MCHC RDW Plt Count Seg Neuts % (Manual) Lymphocytes % (Manual) Seg Neutrophils # Man Lymphocytes # (Manual) PT INR APTT D-Dimer ABG pH POC ABG pCO2 POC ABG pO2 ABG Oxyhemoglobin ABG Sodium ABG Potassium ABG Chloride ABG Glucose VBG pH Sodium Potassium Chloride Carbon Dioxide BUN Creatinine Glucose POC Glucose 330 H 363 H 286 H Hemoglobin A1c Calcium Phosphorus Magnesium Ferritin AST Alkaline Phosphatase Lactate Dehydrogenase Total Creatine Kinase C-Reactive Protein Total Protein Albumin Arterial Blood Glucose Salicylates Acetaminophen Coronavirus (PCR) 07/16/21 07/17/21 07/17/21 22:00 05:37 05:37 WBC 13.1 H Hct MCV MCHC RDW Plt Count 124 L Seg Neuts % (Manual) Lymphocytes % (Manual) Seg Neutrophils # Man Lymphocytes # (Manual) PT INR APTT D-Dimer ABG pH POC ABG pCO2 POC ABG pO2 ABG Oxyhemoglobin ABG Sodium ABG Potassium ABG Chloride ABG Glucose VBG pH Sodium Potassium Chloride Carbon Dioxide BUN Creatinine Glucose POC Glucose 254 H Hemoglobin A1c Calcium Phosphorus Magnesium Ferritin 2270.0 H AST Alkaline Phosphatase Lactate Dehydrogenase Total Creatine Kinase C-Reactive Protein Total Protein Albumin Arterial Blood Glucose Salicylates Acetaminophen Coronavirus (PCR) 07/17/21 07/17/21 07/17/21 05:37 05:37 07:47 WBC Hct MCV MCHC RDW Plt Count Seg Neuts % (Manual) Lymphocytes % (Manual) Seg Neutrophils # Man Lymphocytes # (Manual) PT INR APTT D-Dimer ABG pH POC ABG pCO2 POC ABG pO2 ABG Oxyhemoglobin ABG Sodium ABG Potassium ABG Chloride ABG Glucose VBG pH Sodium 154 H Potassium 3.4 L Chloride 121.1 H Carbon Dioxide BUN 30 H Creatinine Glucose 158 H POC Glucose 163 H Hemoglobin A1c Calcium 8.3 L Phosphorus Magnesium Ferritin AST Alkaline Phosphatase 183 H Lactate Dehydrogenase 1277 H Total Creatine Kinase C-Reactive Protein 9.70 H Total Protein 5.5 L Albumin 2.1 L Arterial Blood Glucose Salicylates Acetaminophen Coronavirus (PCR) 07/17/21 07/17/21 10:40 11:52 WBC Hct MCV MCHC RDW Plt Count Seg Neuts % (Manual) Lymphocytes % (Manual) Seg Neutrophils # Man Lymphocytes # (Manual) PT INR APTT D-Dimer ABG pH 7.455 H POC ABG pCO2 POC ABG pO2 49.7 L ABG Oxyhemoglobin 85.6 L ABG Sodium 149.3 H ABG Potassium 3.0 L ABG Chloride 122.0 H ABG Glucose 194 H VBG pH Sodium Potassium Chloride Carbon Dioxide BUN Creatinine Glucose POC Glucose 203 H Hemoglobin A1c Calcium Phosphorus Magnesium Ferritin AST Alkaline Phosphatase Lactate Dehydrogenase Total Creatine Kinase C-Reactive Protein Total Protein Albumin Arterial Blood Glucose 194 H Salicylates Acetaminophen Coronavirus (PCR)
[2021-07-17] MEDS: REMDESIVIR 100 MG in SODIUM CHLORIDE 0.9% 250ML 250 ML IV SCH (21:30)
[2021-07-17] MEDS: SODIUM CHLORIDE 0.9% 50 ML IVPB IV SCH (21:59)
[2021-07-17] MEDS: INSULIN GLARGINE 100 UNITS/ML SUB-Q SCH (22:03)
--- NOTE | 2021-07-18 04:02 | XRay Report ---
CHEST 1 VIEW 07/18/2021 2:45 AM INDICATION / CLINICAL INFORMATION: covid 19 pna. COMPARISON: Previous day. FINDINGS: SUPPORT DEVICES: None. HEART / MEDIASTINUM: No significant abnormality. LUNGS / PLEURA: Persistent bilateral opacity remains greatest at the right base. No pneumothorax. ADDITIONAL FINDINGS: No significant additional findings. IMPRESSION: Persistent bilateral pneumonia. Signer Name: Shree Santa MD Signed: 07/18/2021 3:58 AM Workstation Name: [id number]
[2021-07-18] MEDS ORDERED: EPINEPHrine 1 MG/1 ML 8 MG in SODIUM CHLORIDE 0.9% 250ML 242 ML IV SCH (04:41)
--- NOTE | 2021-07-18 05:16 | Event Note ---
Date: 07/18/21 CODE JAIRO was called. Patient developed respiratory failure and PEA. Patient was given CPR as per ACLS protocol. 3 AP 2 bicarb 1 calcium gluconate is given. Patient was intubated by ER physician. Patient regained ROSC. Patient was transferred to the ICU. Continue current management. Critical care Dr. Ferguson is notified
--- NOTE | 2021-07-18 05:23 | Event Note ---
Date: 07/18/21 I was called to see the patient for a CODE BLUE. The hospitalist, Dr. Smith, was at bedside supervising ACLS while I intubated the patient. The patient was unresponsive and receiving chest compressions and [id number] ventilation. With respiratory therapy at bedside, I used a glide scope with a 3 MAC blade to visualize the cords. A 7.5 endotracheal tube was placed through the vocal cords to about 24 cm at the lips. The bulb was then inflated with 7 cc of air. There was condensation seen within the tube, bilateral breath sounds, color change capnography. No obvious complications from this procedure. After intubation I return to the emergency department and left Dr. Smith in charge of ACLS and any post ROSC orders or evaluation.
[2021-07-18] MEDS ORDERED: VASOPRESSIN 20 UNIT in SODIUM CHLORIDE 0.9% 100 ML IV SCH ×2 (06:00→11:00)
[2021-07-18] MEDS: NORepinephrine/NS 8 MG-250 ML 8 MG/250 ML INFUS..BTL IV SCH ×2 (06:03→10:25)
--- NOTE | 2021-07-18 07:07 | XRay Report ---
CHEST 1 VIEW 07/18/2021 5:32 AM INDICATION / CLINICAL INFORMATION: S/P intubation. COMPARISON: Earlier the same day. FINDINGS: SUPPORT DEVICES: Endotracheal tube and NG tube in satisfactory position. HEART / MEDIASTINUM: No significant abnormality. LUNGS / PLEURA: Persistent bilateral infiltrates with overall mild worsening. No pneumothorax. ADDITIONAL FINDINGS: No significant additional findings. IMPRESSION: 1. Lines and tubes in satisfactory position. 2. Mild worsening in the appearance of the chest. Signer Name: Shree Santa MD Signed: 07/18/2021 7:02 AM Workstation Name: [id number]
[2021-07-18 08:23] LABS: Hematocrit 43.4 % (35.5-45.6); Hemoglobin 13.5 gm/dl (11.8-15.2); Mean Corpuscular HGB Conc 31 % (32-34); Mean Corpuscular Volume 92 fl (84-94); Platelet Count 143 K/mm3 (140-440); Red Blood Count 4.71 M/mm3 (3.65-5.03); Red Cell Distribution Width 15.3 % (13.2-15.2)
[2021-07-18 09:12] LABS: C-Reactive Protein 5.4 mg/dL (0.00-1.30)
[2021-07-18] MEDS ORDERED: LIPASE 10,500/PROTEASE 25,000/AMYLASE 43,750 (UNITS) DR CAP FEEDTUBE PRN (09:20)
[2021-07-18] MEDS ORDERED: SIMPLE SYRUP 15 ML FEEDTUBE PRN ×2 (09:20)
[2021-07-18] MEDS ORDERED: SODIUM BICARBONATE 325 MG TAB FEEDTUBE PRN (09:20)
[2021-07-18 09:28] LABS: Alanine Aminotransferase 75 units/L (7-56); Albumin 2.5 g/dL (3.9-5); BUN/Creatinine Ratio 25; Blood Urea Nitrogen 32 mg/dL (9-20); Hemolysis Index 37
[2021-07-18] MEDS ORDERED: AMIODARONE 150 MG/3 ML INJ IV ONE (10:14)
[2021-07-18] MEDS ORDERED: EPINEPHrine 1 MG/10 ML SYRINGE ONE (10:14)
[2021-07-18] MEDS ORDERED: SODIUM BICARB 8.4% 50 MEQ/50 ML SYRINGE IV ONE ×2 (10:14→10:26)
[2021-07-18] MEDS ORDERED: NORepinephrine/NS 4 MG-250 ML 4 MG/250 ML BAG IV ONE (10:21)
[2021-07-18] MEDS ORDERED: AMIODARONE IV ONE (10:24)
[2021-07-18] MEDS ORDERED: DEXTROSE 5% IV ONE (10:24)
[2021-07-18] MEDS ORDERED: WATER IV ONE (10:24)
[2021-07-18] MEDS ORDERED: AMIODARONE 150 MG in DEXTROSE 5% IN WATER 97 ML IV ONE (10:25)
[2021-07-18] MEDS: POTASSIUM CHLORIDE 40 MEQ in DEXTROSE 5% IN WATER 1,000 ML IV SCH (10:27)
--- NOTE | 2021-07-18 10:57 | Event Note ---
<LIVIA TORRES - Last Filed: 07/18/21 11:44> Date: 07/18/21 Cardiac arrest Called to room by RT. Patient noted to be hypotensive by RT. Monitor showed HR 200s. BLS initiated at 1014 and ACLS at 1015. Initial rhythm noted to be PEA. Patient received 3 amp epi, 2 amps Bicarb and was noted to be in VTACH. Patient was shocked twice at 360 joules and given 300 mg amio. Amio and vasopressin gtt ordered. Code ended at 1024 with achievement of ROSC. See code sheet for details. I updated his daughter, Nancy Francisco on the phone and explained that Mr. Francisco had another cardiac arrest but was able to acheive ROSC. She did not have nay further questions. I asked her to start thinking about goals of care given cardiac arrest x2. Ordered CBC,CMP,PT/INR. Dr. Sarah Gill is aware of events and was at bedside. Dr. Ferguson was present for the code. 1122: Alerted that HR on BSM was 40, pulse check conducted and no pulse was found. Cardiac arrest resuscitative efforts initiated again. ACLS initated at 1122. 3 mg epi and 1 amp bicarb given. ROSC was achieved. I updated the daughter Nancy Francisco again over the phone. After we spoke last time, Dr. Ferguson also called her. Dr. Ferguson was informed hat after conversing with her brother, Nancy will call back with code status decision. However before call was received, pt coded again. Nancy conference called in her aunt and patients sister Jennifer who both stated that the code status was to be changed to DNR. Nancy stated that her brother, Mike Francisco, was in agreement. Dr. Sarah Gill and Livia PAINTING witnessed the call. Dr. Ferguson and Dr. Gill signed the DNR form. Nancy informed that she would need to come to the hospital physically with her brother to sign the DNR paperwork. CCT: 120 min <SARAH GILL - Last Filed: 07/19/21 17:40> I saw and evaluated the patient. Discussed with the nurse practitioner and agree with their findings and plan as documented in this note.
[2021-07-18] MEDS ORDERED: AMIODARONE 900 MG in DEXTROSE 5% IN WATER 482 ML IV SCH (11:00)
--- NOTE | 2021-07-18 11:34 | Event Note ---
Date: 07/18/21 Coded twice now, ROSC achieved on both. I spoke with Daughter between them and she requested that I speak to the brother. before I could speak to him patient coded again and CAFETERIA OPERATOR spoke with daughter over the phone again. She has now made the patient AND. Will continue all supportive measures. CCT 91 minutes.
--- NOTE | 2021-07-18 11:36 | Progress Note ---
Assessment and Plan 66 y/o male, initially admitted as DKA, found to be hypoxic in ED and then COVID positive now with persistent/worsening respiratory failure. 07/18/21: Multiple codes in the last 24 hours. Meaningful recovery is very slim to none. Family has now made patient DNR. Will continue all supportive measures. CCT 31 minutes. 07/17/21: IMS spoke with family this am and they wish patient to remain full code. WIll require intubation if cannot maintain sats on COMBO therapy as he is not bipap appropriate. If intubated, even worse prognosis than now and overall prognosis is very poor. 1. Remdesivir and IV steroids 2. Tight blood sugar control 3. Agree with full dose anticoagulation 4. Prone as tolerated if possible 5. Monitor fluid balance. Guarded prognosis. Subjective Date of service: 07/18/21 Interval history: Coded and intubated last night. Has now coded 2 more times. Mental status shows depressed mental state. Comatose without any sedations. Objective Vital Signs - 12hr 07/18/21 07/18/21 07/18/21 00:00 00:31 01:00 Temperature 98.4 F Pulse Rate 98 H 99 H 98 H Pulse Rate [ 98 H From Monitor] Respiratory 20 21 20 Rate Blood Pressure 116/68 116/68 112/68 O2 Sat by Pulse 92 94 95 Oximetry 07/18/21 07/18/21 07/18/21 01:31 02:00 02:31 Temperature Pulse Rate 99 H 102 H 105 H Pulse Rate [ From Monitor] Respiratory 20 26 H 24 Rate Blood Pressure 116/68 114/70 114/70 O2 Sat by Pulse 94 91 87 Oximetry 07/18/21 07/18/21 07/18/21 03:00 03:31 04:00 Temperature 98.8 F Pulse Rate 99 H 96 H 103 H Pulse Rate [ 3 L From Monitor] Respiratory 28 H 22 21 Rate Blood Pressure 112/68 112/68 O2 Sat by Pulse 92 94 93 Oximetry 07/18/21 07/18/21 07/18/21 04:01 04:30 05:27 Temperature Pulse Rate 103 H 163 H 122 H Pulse Rate [ From Monitor] Respiratory 24 19 14 Rate Blood Pressure 112/68 96/54 73/36 O2 Sat by Pulse 93 30 L 96 Oximetry 07/18/21 07/18/21 07/18/21 05:30 06:00 06:30 Temperature Pulse Rate 122 H 126 H 141 H Pulse Rate [ From Monitor] Respiratory 17 19 20 Rate Blood Pressure 73/36 117/59 165/83 O2 Sat by Pulse 97 100 99 Oximetry 07/18/21 07/18/21 07/18/21 07:00 07:30 08:00 Temperature 97.7 F Pulse Rate 133 H 138 H 141 H Pulse Rate [ From Monitor] Respiratory 22 24 26 H Rate Blood Pressure 124/62 132/70 131/61 O2 Sat by Pulse 99 99 99 Oximetry 07/18/21 07/18/21 07/18/21 08:30 09:00 09:31 Temperature Pulse Rate 137 H 131 H 128 H Pulse Rate [ From Monitor] Respiratory 28 H 27 H 28 H Rate Blood Pressure 122/62 100/55 106/47 O2 Sat by Pulse 98 97 99 Oximetry 07/18/21 07/18/21 07/18/21 10:01 10:20 10:30 Temperature Pulse Rate 121 H 123 H 131 H Pulse Rate [ From Monitor] Respiratory 30 H 9 L Rate Blood Pressure 62/34 117/68 185/104 O2 Sat by Pulse 95 94 Oximetry CBC and BMP: 07/18/21 08:02 07/18/21 08:02 ABG, PT/INR, D-dimer: ABG ABG pH 7.215 (7.320-7.450) L 07/18/21 05:22 POC ABG pCO2 42.9 mmHg (32.0-48.0) 07/18/21 05:22 POC ABG pO2 96.4 mmHg (83-108) 07/18/21 05:22 POC ABG HCO3 17.0 07/18/21 05:22 ABG O2 Saturation 95.4 (0-100) 07/18/21 05:22 PT/INR, D-dimer PT 17.1 Sec. (12.2-14.9) H 07/13/21 23:57 INR 1.34 (0.87-1.13) H 07/13/21 23:57 D-Dimer > 16693 ng/mlDDU (0-234) H 07/18/21 08:02 Abnormal lab findings: Abnormal Labs 07/12/21 07/12/21 07/12/21 20:38 20:38 20:38 WBC 11.1 H Hct 46.8 H MCV 96 H MCHC 31 L RDW 15.3 H Plt Count Seg Neuts % (Manual) 91.0 H Lymphocytes % (Manual) 6.0 L Seg Neutrophils # Man 10.1 H Lymphocytes # (Manual) 0.7 L PT 16.5 H INR 1.28 H APTT D-Dimer ABG pH POC ABG pCO2 POC ABG pO2 ABG Oxyhemoglobin ABG Sodium ABG Potassium ABG Chloride ABG Glucose VBG pH Carboxyhemoglobin Sodium 146 H Potassium 5.2 H Chloride Carbon Dioxide 7 L* BUN 50 H Creatinine 1.5 H Glucose 617 H* POC Glucose Hemoglobin A1c Calcium Phosphorus Magnesium 3.20 H Ferritin AST ALT Alkaline Phosphatase Lactate Dehydrogenase Total Creatine Kinase 372 H C-Reactive Protein Total Protein Albumin 3.2 L Arterial Blood Glucose Salicylates Acetaminophen Coronavirus (PCR) 07/12/21 07/12/21 07/12/21 20:38 20:38 20:38 WBC Hct MCV MCHC RDW Plt Count Seg Neuts % (Manual) Lymphocytes % (Manual) Seg Neutrophils # Man Lymphocytes # (Manual) PT INR APTT D-Dimer ABG pH POC ABG pCO2 POC ABG pO2 ABG Oxyhemoglobin ABG Sodium ABG Potassium ABG Chloride ABG Glucose VBG pH 7.170 L* Carboxyhemoglobin Sodium Potassium Chloride Carbon Dioxide BUN Creatinine Glucose POC Glucose Hemoglobin A1c Calcium Phosphorus Magnesium Ferritin AST ALT Alkaline Phosphatase Lactate Dehydrogenase Total Creatine Kinase C-Reactive Protein Total Protein Albumin Arterial Blood Glucose Salicylates < 0.3 L Acetaminophen 5.0 L Coronavirus (PCR) 07/12/21 07/12/21 07/12/21 21:31 21:31 23:14 WBC Hct MCV MCHC RDW Plt Count Seg Neuts % (Manual) Lymphocytes % (Manual) Seg Neutrophils # Man Lymphocytes # (Manual) PT INR APTT D-Dimer ABG pH POC ABG pCO2 POC ABG pO2 ABG Oxyhemoglobin ABG Sodium ABG Potassium ABG Chloride ABG Glucose VBG pH Carboxyhemoglobin Sodium 148 H 150 H Potassium 5.1 H 5.1 H Chloride Carbon Dioxide 6 L* 7 L* BUN 53 H 52 H Creatinine 1.6 H 1.6 H Glucose 610 H* 606 H* POC Glucose Hemoglobin A1c Calcium Phosphorus 5.70 H 6.00 H Magnesium 3.10 H 3.00 H Ferritin AST ALT Alkaline Phosphatase Lactate Dehydrogenase 822 H Total Creatine Kinase C-Reactive Protein 8.10 H Total Protein Albumin Arterial Blood Glucose Salicylates Acetaminophen Coronavirus (PCR) 07/12/21 07/12/21 07/12/21 23:14 23:14 23:14 WBC Hct MCV MCHC RDW Plt Count Seg Neuts % (Manual) Lymphocytes % (Manual) Seg Neutrophils # Man Lymphocytes # (Manual) PT INR APTT D-Dimer > 15871 H ABG pH POC ABG pCO2 POC ABG pO2 ABG Oxyhemoglobin ABG Sodium ABG Potassium ABG Chloride ABG Glucose VBG pH Carboxyhemoglobin Sodium Potassium Chloride Carbon Dioxide BUN Creatinine Glucose POC Glucose Hemoglobin A1c Calcium Phosphorus Magnesium Ferritin 4711.0 H AST ALT Alkaline Phosphatase Lactate Dehydrogenase 811 H Total Creatine Kinase C-Reactive Protein 8.30 H Total Protein Albumin Arterial Blood Glucose Salicylates Acetaminophen Coronavirus (PCR) 07/13/21 07/13/21 07/13/21 01:01 01:43 02:16 WBC Hct MCV MCHC RDW Plt Count Seg Neuts % (Manual) Lymphocytes % (Manual) Seg Neutrophils # Man Lymphocytes # (Manual) PT INR APTT D-Dimer ABG pH POC ABG pCO2 POC ABG pO2 ABG Oxyhemoglobin ABG Sodium ABG Potassium ABG Chloride ABG Glucose VBG pH Carboxyhemoglobin Sodium 129 L D Potassium Chloride Carbon Dioxide 15 L D BUN Creatinine Glucose 123 H POC Glucose 419 H 343 H Hemoglobin A1c Calcium Phosphorus Magnesium Ferritin AST ALT Alkaline Phosphatase Lactate Dehydrogenase Total Creatine Kinase C-Reactive Protein Total Protein Albumin Arterial Blood Glucose Salicylates Acetaminophen Coronavirus (PCR) 07/13/21 07/13/21 07/13/21 03:23 04:24 05:18 WBC Hct MCV MCHC RDW Plt Count Seg Neuts % (Manual) Lymphocytes % (Manual) Seg Neutrophils # Man Lymphocytes # (Manual) PT INR APTT D-Dimer ABG pH POC ABG pCO2 POC ABG pO2 ABG Oxyhemoglobin ABG Sodium ABG Potassium ABG Chloride ABG Glucose VBG pH Carboxyhemoglobin Sodium 154 H D Potassium Chloride 115.4 H Carbon Dioxide 15 L BUN 45 H Creatinine Glucose 270 H POC Glucose 295 H 259 H Hemoglobin A1c Calcium Phosphorus Magnesium Ferritin AST ALT Alkaline Phosphatase Lactate Dehydrogenase Total Creatine Kinase C-Reactive Protein Total Protein Albumin Arterial Blood Glucose Salicylates Acetaminophen Coronavirus (PCR) 07/13/21 07/13/21 07/13/21 05:18 05:21 06:31 WBC 14.1 H Hct MCV MCHC RDW Plt Count Seg Neuts % (Manual) 86.0 H Lymphocytes % (Manual) 4.0 L Seg Neutrophils # Man 12.1 H Lymphocytes # (Manual) 0.6 L PT INR APTT D-Dimer ABG pH POC ABG pCO2 POC ABG pO2 ABG Oxyhemoglobin ABG Sodium ABG Potassium ABG Chloride ABG Glucose VBG pH Carboxyhemoglobin Sodium Potassium Chloride Carbon Dioxide BUN Creatinine Glucose POC Glucose 239 H 227 H Hemoglobin A1c Calcium Phosphorus Magnesium Ferritin AST ALT Alkaline Phosphatase Lactate Dehydrogenase Total Creatine Kinase C-Reactive Protein Total Protein Albumin Arterial Blood Glucose Salicylates Acetaminophen Coronavirus (PCR) 07/13/21 07/13/21 07/13/21 08:18 09:22 11:29 WBC Hct MCV MCHC RDW Plt Count Seg Neuts % (Manual) Lymphocytes % (Manual) Seg Neutrophils # Man Lymphocytes # (Manual) PT INR APTT D-Dimer ABG pH POC ABG pCO2 POC ABG pO2 ABG Oxyhemoglobin ABG Sodium ABG Potassium ABG Chloride ABG Glucose VBG pH Carboxyhemoglobin Sodium 154 H Potassium Chloride 118.5 H Carbon Dioxide 20 L BUN 41 H Creatinine Glucose 228 H POC Glucose 226 H 202 H Hemoglobin A1c Calcium Phosphorus Magnesium Ferritin AST ALT Alkaline Phosphatase Lactate Dehydrogenase Total Creatine Kinase C-Reactive Protein Total Protein Albumin Arterial Blood Glucose Salicylates Acetaminophen Coronavirus (PCR) 07/13/21 07/13/21 07/13/21 15:59 16:18 19:32 WBC Hct MCV MCHC RDW Plt Count Seg Neuts % (Manual) Lymphocytes % (Manual) Seg Neutrophils # Man Lymphocytes # (Manual) PT INR APTT D-Dimer ABG pH POC ABG pCO2 POC ABG pO2 ABG Oxyhemoglobin ABG Sodium ABG Potassium ABG Chloride ABG Glucose VBG pH Carboxyhemoglobin Sodium 152 H Potassium Chloride 119.9 H Carbon Dioxide 21 L BUN 35 H Creatinine Glucose 183 H POC Glucose 204 H 181 H Hemoglobin A1c Calcium Phosphorus Magnesium Ferritin AST ALT Alkaline Phosphatase Lactate Dehydrogenase Total Creatine Kinase C-Reactive Protein Total Protein Albumin Arterial Blood Glucose Salicylates Acetaminophen Coronavirus (PCR) 07/13/21 07/13/21 07/13/21 22:19 23:57 23:57 WBC Hct MCV MCHC RDW Plt Count Seg Neuts % (Manual) Lymphocytes % (Manual) Seg Neutrophils # Man Lymphocytes # (Manual) PT 17.1 H INR 1.34 H APTT 60.0 H D-Dimer > 63986 H ABG pH POC ABG pCO2 POC ABG pO2 ABG Oxyhemoglobin ABG Sodium ABG Potassium ABG Chloride ABG Glucose VBG pH Carboxyhemoglobin Sodium 156 H Potassium Chloride 122.6 H Carbon Dioxide BUN 31 H Creatinine Glucose 121 H POC Glucose 119 H Hemoglobin A1c Calcium Phosphorus Magnesium Ferritin AST ALT Alkaline Phosphatase Lactate Dehydrogenase Total Creatine Kinase C-Reactive Protein Total Protein Albumin Arterial Blood Glucose Salicylates Acetaminophen Coronavirus (PCR) 07/13/21 07/13/21 07/13/21 23:57 23:57 Unknown WBC Hct MCV MCHC RDW Plt Count Seg Neuts % (Manual) Lymphocytes % (Manual) Seg Neutrophils # Man Lymphocytes # (Manual) PT INR APTT D-Dimer ABG pH POC ABG pCO2 POC ABG pO2 ABG Oxyhemoglobin ABG Sodium ABG Potassium ABG Chloride ABG Glucose VBG pH Carboxyhemoglobin Sodium Potassium Chloride Carbon Dioxide BUN Creatinine Glucose POC Glucose Hemoglobin A1c Calcium Phosphorus Magnesium Ferritin 3041.0 H AST ALT Alkaline Phosphatase Lactate Dehydrogenase 842 H Total Creatine Kinase C-Reactive Protein 6.30 H Total Protein Albumin Arterial Blood Glucose Salicylates Acetaminophen Coronavirus (PCR) Positive A 07/14/21 07/14/21 07/14/21 00:54 05:30 05:30 WBC 11.9 H Hct MCV MCHC RDW Plt Count Seg Neuts % (Manual) Lymphocytes % (Manual) Seg Neutrophils # Man Lymphocytes # (Manual) PT INR APTT D-Dimer ABG pH POC ABG pCO2 POC ABG pO2 ABG Oxyhemoglobin ABG Sodium ABG Potassium ABG Chloride ABG Glucose VBG pH Carboxyhemoglobin Sodium 155 H Potassium Chloride 122.4 H Carbon Dioxide 21 L BUN 29 H Creatinine Glucose 228 H POC Glucose 153 H Hemoglobin A1c Calcium 8.2 L Phosphorus Magnesium Ferritin AST ALT Alkaline Phosphatase Lactate Dehydrogenase Total Creatine Kinase C-Reactive Protein Total Protein Albumin Arterial Blood Glucose Salicylates Acetaminophen Coronavirus (PCR) 07/14/21 07/14/21 07/14/21 05:30 08:37 10:38 WBC Hct MCV MCHC RDW Plt Count Seg Neuts % (Manual) Lymphocytes % (Manual) Seg Neutrophils # Man Lymphocytes # (Manual) PT INR APTT D-Dimer ABG pH POC ABG pCO2 POC ABG pO2 ABG Oxyhemoglobin ABG Sodium ABG Potassium ABG Chloride ABG Glucose VBG pH Carboxyhemoglobin Sodium 156 H Potassium Chloride 124.2 H Carbon Dioxide BUN 28 H Creatinine Glucose 172 H POC Glucose 155 H Hemoglobin A1c 16.5 H Calcium Phosphorus Magnesium Ferritin AST 50 H ALT Alkaline Phosphatase Lactate Dehydrogenase Total Creatine Kinase C-Reactive Protein Total Protein 5.5 L D Albumin 2.7 L Arterial Blood Glucose Salicylates Acetaminophen Coronavirus (PCR) 07/14/21 07/15/21 07/15/21 13:59 04:45 04:45 WBC 12.1 H Hct MCV MCHC 35 H RDW Plt Count 97 L Seg Neuts % (Manual) Lymphocytes % (Manual) Seg Neutrophils # Man Lymphocytes # (Manual) PT INR APTT D-Dimer > 79945 H ABG pH POC ABG pCO2 POC ABG pO2 ABG Oxyhemoglobin ABG Sodium ABG Potassium ABG Chloride ABG Glucose VBG pH Carboxyhemoglobin Sodium Potassium Chloride Carbon Dioxide BUN Creatinine Glucose POC Glucose 124 H Hemoglobin A1c Calcium Phosphorus Magnesium Ferritin AST ALT Alkaline Phosphatase Lactate Dehydrogenase Total Creatine Kinase C-Reactive Protein Total Protein Albumin Arterial Blood Glucose Salicylates Acetaminophen Coronavirus (PCR) 07/15/21 07/15/21 07/15/21 04:45 04:45 04:45 WBC Hct MCV MCHC RDW Plt Count Seg Neuts % (Manual) Lymphocytes % (Manual) Seg Neutrophils # Man Lymphocytes # (Manual) PT INR APTT D-Dimer ABG pH POC ABG pCO2 POC ABG pO2 ABG Oxyhemoglobin ABG Sodium ABG Potassium ABG Chloride ABG Glucose VBG pH Carboxyhemoglobin Sodium 159 H Potassium Chloride 126.8 H Carbon Dioxide BUN 31 H Creatinine Glucose POC Glucose Hemoglobin A1c Calcium Phosphorus Magnesium Ferritin > 2000.0 H AST 64 H ALT Alkaline Phosphatase 137 H Lactate Dehydrogenase 1125 H Total Creatine Kinase C-Reactive Protein 12.10 H Total Protein 5.6 L Albumin 2.4 L Arterial Blood Glucose Salicylates Acetaminophen Coronavirus (PCR) 07/15/21 07/15/21 07/15/21 08:23 10:22 11:57 WBC Hct MCV MCHC RDW Plt Count Seg Neuts % (Manual) Lymphocytes % (Manual) Seg Neutrophils # Man Lymphocytes # (Manual) PT INR APTT D-Dimer ABG pH 7.452 H POC ABG pCO2 30.6 L POC ABG pO2 59.5 L ABG Oxyhemoglobin 91.2 L ABG Sodium 154.0 H ABG Potassium ABG Chloride 124.0 H ABG Glucose 174 H VBG pH Carboxyhemoglobin Sodium Potassium Chloride Carbon Dioxide BUN Creatinine Glucose POC Glucose 138 H 179 H Hemoglobin A1c Calcium Phosphorus Magnesium Ferritin AST ALT Alkaline Phosphatase Lactate Dehydrogenase Total Creatine Kinase C-Reactive Protein Total Protein Albumin Arterial Blood Glucose 174 H Salicylates Acetaminophen Coronavirus (PCR) 07/15/21 07/15/21 07/16/21 16:43 21:44 04:15 WBC Hct MCV MCHC RDW Plt Count Seg Neuts % (Manual) Lymphocytes % (Manual) Seg Neutrophils # Man Lymphocytes # (Manual) PT INR APTT D-Dimer ABG pH POC ABG pCO2 POC ABG pO2 ABG Oxyhemoglobin ABG Sodium ABG Potassium ABG Chloride ABG Glucose VBG pH Carboxyhemoglobin Sodium 156 H Potassium Chloride 121.1 H Carbon Dioxide BUN 37 H Creatinine Glucose 318 H POC Glucose 251 H 297 H Hemoglobin A1c Calcium 8.2 L Phosphorus Magnesium Ferritin AST ALT Alkaline Phosphatase 133 H Lactate Dehydrogenase Total Creatine Kinase C-Reactive Protein Total Protein 5.0 L Albumin 2.1 L Arterial Blood Glucose Salicylates Acetaminophen Coronavirus (PCR) 07/16/21 07/16/21 07/16/21 04:15 04:15 04:15 WBC Hct MCV MCHC RDW Plt Count Seg Neuts % (Manual) Lymphocytes % (Manual) Seg Neutrophils # Man Lymphocytes # (Manual) PT INR APTT D-Dimer > 05677 H ABG pH POC ABG pCO2 POC ABG pO2 ABG Oxyhemoglobin ABG Sodium ABG Potassium ABG Chloride ABG Glucose VBG pH Carboxyhemoglobin Sodium Potassium Chloride Carbon Dioxide BUN Creatinine Glucose POC Glucose Hemoglobin A1c Calcium Phosphorus Magnesium Ferritin 2932.0 H AST ALT Alkaline Phosphatase Lactate Dehydrogenase 920 H Total Creatine Kinase C-Reactive Protein 21.40 H Total Protein Albumin Arterial Blood Glucose Salicylates Acetaminophen Coronavirus (PCR) 07/16/21 07/16/21 07/16/21 07:20 11:30 16:09 WBC Hct MCV MCHC RDW Plt Count Seg Neuts % (Manual) Lymphocytes % (Manual) Seg Neutrophils # Man Lymphocytes # (Manual) PT INR APTT D-Dimer ABG pH POC ABG pCO2 POC ABG pO2 ABG Oxyhemoglobin ABG Sodium ABG Potassium ABG Chloride ABG Glucose VBG pH Carboxyhemoglobin Sodium Potassium Chloride Carbon Dioxide BUN Creatinine Glucose POC Glucose 330 H 363 H 286 H Hemoglobin A1c Calcium Phosphorus Magnesium Ferritin AST ALT Alkaline Phosphatase Lactate Dehydrogenase Total Creatine Kinase C-Reactive Protein Total Protein Albumin Arterial Blood Glucose Salicylates Acetaminophen Coronavirus (PCR) 07/16/21 07/17/21 07/17/21 22:00 05:37 05:37 WBC 13.1 H Hct MCV MCHC RDW Plt Count 124 L Seg Neuts % (Manual) Lymphocytes % (Manual) Seg Neutrophils # Man Lymphocytes # (Manual) PT INR APTT D-Dimer ABG pH POC ABG pCO2 POC ABG pO2 ABG Oxyhemoglobin ABG Sodium ABG Potassium ABG Chloride ABG Glucose VBG pH Carboxyhemoglobin Sodium Potassium Chloride Carbon Dioxide BUN Creatinine Glucose POC Glucose 254 H Hemoglobin A1c Calcium Phosphorus Magnesium Ferritin 2270.0 H AST ALT Alkaline Phosphatase Lactate Dehydrogenase Total Creatine Kinase C-Reactive Protein Total Protein Albumin Arterial Blood Glucose Salicylates Acetaminophen Coronavirus (PCR) 07/17/21 07/17/21 07/17/21 05:37 05:37 07:47 WBC Hct MCV MCHC RDW Plt Count Seg Neuts % (Manual) Lymphocytes % (Manual) Seg Neutrophils # Man Lymphocytes # (Manual) PT INR APTT D-Dimer ABG pH POC ABG pCO2 POC ABG pO2 ABG Oxyhemoglobin ABG Sodium ABG Potassium ABG Chloride ABG Glucose VBG pH Carboxyhemoglobin Sodium 154 H Potassium 3.4 L Chloride 121.1 H Carbon Dioxide BUN 30 H Creatinine Glucose 158 H POC Glucose 163 H Hemoglobin A1c Calcium 8.3 L Phosphorus Magnesium Ferritin AST ALT Alkaline Phosphatase 183 H Lactate Dehydrogenase 1277 H Total Creatine Kinase C-Reactive Protein 9.70 H Total Protein 5.5 L Albumin 2.1 L Arterial Blood Glucose Salicylates Acetaminophen Coronavirus (PCR) 07/17/21 07/17/21 07/17/21 10:40 11:52 16:57 WBC Hct MCV MCHC RDW Plt Count Seg Neuts % (Manual) Lymphocytes % (Manual) Seg Neutrophils # Man Lymphocytes # (Manual) PT INR APTT D-Dimer ABG pH 7.455 H POC ABG pCO2 POC ABG pO2 49.7 L ABG Oxyhemoglobin 85.6 L ABG Sodium 149.3 H ABG Potassium 3.0 L ABG Chloride 122.0 H ABG Glucose 194 H VBG pH Carboxyhemoglobin Sodium Potassium Chloride Carbon Dioxide BUN Creatinine Glucose POC Glucose 203 H 211 H Hemoglobin A1c Calcium Phosphorus Magnesium Ferritin AST ALT Alkaline Phosphatase Lactate Dehydrogenase Total Creatine Kinase C-Reactive Protein Total Protein Albumin Arterial Blood Glucose 194 H Salicylates Acetaminophen Coronavirus (PCR) 07/18/21 07/18/21 07/18/21 04:23 05:13 05:22 WBC Hct MCV MCHC RDW Plt Count Seg Neuts % (Manual) Lymphocytes % (Manual) Seg Neutrophils # Man Lymphocytes # (Manual) PT INR APTT D-Dimer ABG pH 7.215 L POC ABG pCO2 POC ABG pO2 ABG Oxyhemoglobin ABG Sodium 148.2 H ABG Potassium ABG Chloride 121.0 H ABG Glucose 304 H VBG pH Carboxyhemoglobin 0.4 L Sodium Potassium Chloride Carbon Dioxide BUN Creatinine Glucose POC Glucose 180 H 226 H Hemoglobin A1c Calcium Phosphorus Magnesium Ferritin AST ALT Alkaline Phosphatase Lactate Dehydrogenase Total Creatine Kinase C-Reactive Protein Total Protein Albumin Arterial Blood Glucose 304 H Salicylates Acetaminophen Coronavirus (PCR) 07/18/21 07/18/21 07/18/21 08:02 08:02 08:02 WBC Hct MCV MCHC RDW Plt Count Seg Neuts % (Manual) Lymphocytes % (Manual) Seg Neutrophils # Man Lymphocytes # (Manual) PT INR APTT D-Dimer > 28200 H ABG pH POC ABG pCO2 POC ABG pO2 ABG Oxyhemoglobin ABG Sodium ABG Potassium ABG Chloride ABG Glucose VBG pH Carboxyhemoglobin Sodium Potassium Chloride Carbon Dioxide BUN Creatinine Glucose POC Glucose Hemoglobin A1c Calcium Phosphorus Magnesium Ferritin > 2000.0 H AST ALT Alkaline Phosphatase Lactate Dehydrogenase 1913 H Total Creatine Kinase C-Reactive Protein 5.40 H Total Protein Albumin Arterial Blood Glucose Salicylates Acetaminophen Coronavirus (PCR) 07/18/21 07/18/21 07/18/21 08:02 08:02 08:02 WBC 22.7 H Hct MCV MCHC 31 L RDW 15.3 H Plt Count Seg Neuts % (Manual) Lymphocytes % (Manual) Seg Neutrophils # Man Lymphocytes # (Manual) PT INR APTT D-Dimer ABG pH POC ABG pCO2 POC ABG pO2 ABG Oxyhemoglobin ABG Sodium ABG Potassium ABG Chloride ABG Glucose VBG pH Carboxyhemoglobin Sodium 153 H Potassium Chloride 116.3 H Carbon Dioxide 17 L D BUN 32 H Creatinine Glucose 404 H POC Glucose Hemoglobin A1c Calcium Phosphorus 6.70 H Magnesium 2.70 H Ferritin AST 152 H ALT 75 H Alkaline Phosphatase 293 H Lactate Dehydrogenase Total Creatine Kinase C-Reactive Protein Total Protein 5.6 L Albumin 2.5 L Arterial Blood Glucose Salicylates Acetaminophen Coronavirus (PCR)
[2021-07-18] MEDS: INSULIN REGULAR, HUMAN 100 UNITS/1 ML SUB-Q SCH ×2 (12:30→12:32)
[2021-07-18] MEDS: INSULIN LISPRO 100 UNIT/ML SUB-Q SCH ×2 (12:31→12:32)
[2021-07-18] MEDS: ENOXAPARIN 100 MG/1 ML INJ SUB-Q SCH (12:32)
[2021-07-18] MEDS: FAMOTIDINE 20 MG/2 ML INJ IV SCH (12:33)
[2021-07-18] MEDS: dexAMETHasone 4 MG/ML VIAL IV SCH (12:33)
[2021-07-18] MEDS: DOCUSATE SODIUM 100 MG/10 ML ORAL LIQD PO SCH (12:33)
--- NOTE | 2021-07-18 13:03 | XRay Report ---
CHEST 1 VIEW 07/18/2021 11:44 AM INDICATION / CLINICAL INFORMATION: PICC Placement. COMPARISON: 5:44 AM FINDINGS: SUPPORT DEVICES: Right PICC has been placed with the catheter extending into the right jugular vein d irected toward the head. Other tubes and lines are unchanged. HEART / MEDIASTINUM: No significant abnormality. LUNGS / PLEURA: Bilateral pulmonary opacities are unchanged. Interval development of small bilateral apical pneumothoraces. ADDITIONAL FINDINGS: No significant additional findings. IMPRESSION: 1. Right PICC and the right jugular vein directed toward the head. PICC should be repositioned. 2. Interval development of small bilateral apical pneumothoraces. Signer Name: Phuc Gallagher MD Signed: 07/18/2021 12:58 PM Workstation Name: [id number]
--- NOTE | 2021-07-18 13:08 | XRay Report ---
CHEST 1 VIEW 07/18/2021 11:52 AM INDICATION / CLINICAL INFORMATION: PICC Placement. COMPARISON: 11:44 AM FINDINGS: SUPPORT DEVICES: Once again, right PICC extends into the jugular vein directed toward the head. Other tubes and lines are unchanged. HEART / MEDIASTINUM: Stable. LUNGS / PLEURA: Bilateral pulmonary opacities are unchanged. Small bilateral apical pneumothoraces ar e slightly increased in size. ADDITIONAL FINDINGS: Small amount of subcutaneous soft tissue emphysema in the neck. IMPRESSION: 1. Right PICC in the right jugular vein and should be repositioned. 2. Slight increase in small bilateral apical pneumothoraces. IMPORTANT FINDING Time of Communication (ADVERTISING STATISTICAL CLERK/CDT): 12:05 PM Licensed Practitioner Receiving Report: Nurse Demarco in the critical care unit Signer Name: Phuc Gallagher MD Signed: 07/18/2021 1:04 PM Workstation Name: [id number]
--- NOTE | 2021-07-18 15:13 | Death Summary ---
<LIVIA TORRESSerg - Last Filed: 07/18/21 15:29> Summary - Providers Date of service: 07/18/21 Consults: 07/12/21 21:23 Consult to Physician [CONS] Urgent Comment: Dr. Cameron spoke with Dr. Ferguson @ [id number] Consulting Provider: JUAN M FERGUSON Physician Instructions: Reason For Exam: dka 07/12/21 22:30 Consult to Physician [CONS] Routine Comment: Consulting Provider: AZAM COTE Physician Instructions: Reason For Exam: pui 07/12/21 22:54 Consult to Physician [CONS] Routine Comment: Consulting Provider: TAZ PEACOCK Physician Instructions: Reason For Exam: Encephalopathy 07/14/21 07:20 Consult to Dietitian/Nutrition [CONS] Routine Physician Instructions: Reason For Exam: Reason for Consult: Diet education 07/15/21 14:56 Speech Therapy Evaluation and Treat [CONS] Routine Reason For Exam: dysphagia 07/18/21 05:14 Consult to Physician [CONS] Routine Comment: Consulting Provider: JUAN M FERGUSON Physician Instructions: Reason For Exam: CODE BLUE 07/18/21 07:24 Consult to Dietitian/Nutrition [CONS] Routine Physician Instructions: Reason For Exam: Reason for Consult: Write/Manage Tube Feeding 07/18/21 09:14 Consult to PICC Line RN [CONS] Stat Reason For Exam: need for vasopressor Type Line:: PICC 07/18/21 11:13 Consult to Physician [CONS] Routine Comment: Consulting Provider: EWELINA DE LOS SANTOS Physician Instructions: Reason For Exam: s/p cardiac arrest x2 Attending: SARAH MADSEN MD - summary Date of admission: 07/12/21 22:08 Date of : 07/18/21 Reason for admission: COVID 19 PNA, s/p DKA, Acute metabolic encephalopathy Significant findings: This is 66-year-old male with DM presented to emergency department because of high blood sugar and generalized weakness. Work-up in the emergency department showed lab work consistent with DKA, CT head scan of head shows no acute intracranial abnormality. Patient was also made a COVID-19 PUI. On 07/13 COVID- 19 PCR resulted as positive, remains on insulin drip as anion gap has not closed, CTA chest ordered and placed on Heparin gtt for DVT on BLE dopplar US. On 07/14 Echo ordered and AG now closed so transitioned to SSI and long acting insulin. He was also started on remdisivir, unable to complete CTA chest or MRI brain as pt is in optiflow with nrb in place and daughter Nancy Francisco update over the phone today by livia torres np. On 07/15 patient remained on high flow nasal cannula with flow rate 40 L/min and FiO2 100%. 07/16 patient was on optiflow and overlying ventimask. 07/17 patient desaturated and ABG ordered demonstrating hypoxemia, Electrolyte disturbances (hypernatremia, hyperchloremia) noted, gap remains closed on currently on D5 W with 40 M EQ potassium at 125. Overnight patient cardiac arrested and was intubated. Today patient underwent two more cardiac arrest and family made the patient a DNR. Patent ultimately and time of pronounced by Dr. Ferguson at 1251. Assessment and plan: Acute metabolic encephalopathy s/p cardiac arrest x3 Rule out PE (unable to have test completed d/t instability) Acute hypoxic respiratory failure Dysphagia Acute kidney Injury 2/2 vasomotor nephropathy (resolving), hypernatremia, hyperchloremia, high anion gap metabolic acidosis Leukocytosis DVT s/p DKA h/o DM (noncompliant per family) COVID-19 PNA non cct 30 min <SARAH MADSEN - Last Filed: 07/19/21 17:40> Summary - Providers Consults: 07/12/21 21:23 Consult to Physician [CONS] Urgent Comment: Dr. Cameron spoke with Dr. Ferguson @ [phone] Consulting Provider: JUAN M FERGUSON Physician Instructions: Reason For Exam: dka 07/12/21 22:30 Consult to Physician [CONS] Routine Comment: Consulting Provider: AZAM COTE Physician Instructions: Reason For Exam: pui 07/12/21 22:54 Consult to Physician [CONS] Routine Comment: Consulting Provider: TAZ PEACOCK Physician Instructions: Reason For Exam: Encephalopathy 07/14/21 07:20 Consult to Dietitian/Nutrition [CONS] Routine Physician Instructions: Reason For Exam: Reason for Consult: Diet education 07/15/21 14:56 Speech Therapy Evaluation and Treat [CONS] Routine Reason For Exam: dysphagia 07/18/21 05:14 Consult to Physician [CONS] Routine Comment: Consulting Provider: JUAN M FERGUSON Physician Instructions: Reason For Exam: CODE BLUE 07/18/21 07:24 Consult to Dietitian/Nutrition [CONS] Routine Physician Instructions: Reason For Exam: Reason for Consult: Write/Manage Tube Feeding 07/18/21 09:14 Consult to PICC Line RN [CONS] Stat Reason For Exam: need for vasopressor Type Line:: PICC 07/18/21 11:13 Consult to Physician [CONS] Routine Comment: Consulting Provider: EWELINA DE LOS SANTOS Physician Instructions: Reason For Exam: s/p cardiac arrest x2 Attending: SARAH MADSEN MD - summary Date of admission: 07/12/21 22:08 Significant findings: I saw and evaluated the patient. Discussed with the nurse practitioner and agree with their findings and plan as documented in this note.
[2021-07-18 20:45] VITALS: BP 85/52
== END 2021-07-18 12:51 | disposition home or self-care (01) | DRG 208 ==
LOC: ED 20:15 → CC1 22:08 → IMCU 07-15 00:30 → CC1 07-18 05:33
PROVIDERS: ADMIT Hospitalist; ATTEND Internal Medicine
PROC: 4A033R1 Measurement of Arterial Saturation, Peripheral, Percutaneous Approach (ICD-10-PCS; principal; 2021-07-15)
PROC: XW033E5 Introduction of Remdesivir Anti-infective into Peripheral Vein, Percutaneous Approach, New Technology Group 5 (ICD-10-PCS; 2021-07-15)
PROC: XW033H5 Introduction of Tocilizumab into Peripheral Vein, Percutaneous Approach, New Technology Group 5 (ICD-10-PCS; 2021-07-15)
PROC: 5A09357 Assistance with Respiratory Ventilation, Less than 24 Consecutive Hours, Continuous Positive Airway Pressure (ICD-10-PCS; 2021-07-17)
PROC: 5A1935Z Respiratory Ventilation, Less than 24 Consecutive Hours (ICD-10-PCS; 2021-07-18)
PROC: 0BH17EZ Insertion of Endotracheal Airway into Trachea, Via Natural or Artificial Opening (ICD-10-PCS; 2021-07-18)
DX: U07.1 COVID-19 (principal); E11.10 Type 2 diabetes mellitus with ketoacidosis without coma; G93.41 Metabolic encephalopathy; J96.01 Acute respiratory failure with hypoxia; I46.9 Cardiac arrest, cause unspecified; N17.0 Acute kidney failure with tubular necrosis; E87.1 Hypo-osmolality and hyponatremia; I82.453 Acute embolism and thrombosis of peroneal vein, bilateral; I82.443 Acute embolism and thrombosis of tibial vein, bilateral; E86.0 Dehydration; R68.0 Hypothermia, not associated with low environmental temperature; E87.6 Hypokalemia; E83.39 Other disorders of phosphorus metabolism; E83.41 Hypermagnesemia; R13.10 Dysphagia, unspecified; Z66 Do not resuscitate
CPT/HCPCS: 36415; 36600; 70450; 71045; 80048; 80053; 80307; 80320; 81001; 82010; 82140; 82550; 82728; 82805; 82962; 83036; 83615; 83735; 84100; 84145; 84443; 84484; 85007; 85014; 85018; 85025; 85027; 85049; 85379; 85610; 85730; 86140; 86850; 86900; 86901; 87040; 87070; 87086; 87205; 93005; 93306; 93970; 94002; 94003; 94640; 94760; G0378; G0480; J0171; J0282; J0456; J0696; J1100; J1644; J1650; J1815; J1940; J3262; J3480; J7030; J7050; J7070; J7120; U0003